=== PATIENT | male | born 1965 | race Caucasian/White ===

== ENCOUNTER → 2016-07-23 | Outpatient (CLI) | payer MEDICARE, MEDICAID ==
--- NOTE | 2016-07-23 16:36 | CR ---
EXAMINATION: Right wrist HISTORY: Pain COMPARISON: None TECHNIQUE: 3 views FINDINGS/IMPRESSION: There is a small ossific density projecting posterior to the wrist, possibly a triquetral avulsion fracture. Otherwise the osseous structures, joint spaces, and bone mineralizatio n appear normal. Moderate vascular calcifications noted.
== END ==
LOC: MW.CHORTHO 13:27
PROVIDERS: ATTEND Orthopaedic Surgery
DX: M25.531 Pain in right wrist (principal); G56.01 Carpal tunnel syndrome, right upper limb
CPT/HCPCS: 73110-26-RT; 73110-RT; 99203

== ENCOUNTER 2017-04-22 22:07 | Emergency (ER) | payer MEDICARE, OTHER ==
[2017-04-22 22:40] VITALS: BP 145/65
--- NOTE | 2017-04-22 23:27 | EDM.PDOC ---
<Sanjay De Santiago - Last Filed: 04/22/17 23:26> ED HPI GENERAL MEDICAL PROBLEM - General Chief Complaint: Upper Extremity Injury/Pain Stated Complaint: PAIN RIGHT SIDE PAIN Time Seen by Provider: 04/22/17 23:15 right rib area Pain Score (Numeric/FACES): 10 - Related Data Allergies Allergy/AdvReac Type Severity Reaction Status Date / Time azithromycin Allergy disoriented Verified 04/22/17 22:35 morphine Allergy Swelling Verified 04/22/17 22:35 Home Meds: Home Meds Metoprolol Succinate [Toprol XL] 50 mg PO DAILY 11/05/13 [History] Tacrolimus [Astagraf Xl] 5 mg PO DAILY 11/05/13 [History] atorvaSTATin [Lipitor] 10 mg PO DAILY 11/05/13 [History] predniSONE 5 mg PO DAILY 11/05/13 [History] Fluticasone Propionate [Flonase] 2 sprays TEZ BID PRN 08/02/14 [History] Insulin Aspart [NovoLOG] 1 injection SUBCUT TIDAC 08/02/14 [History] Insulin Glarg,Human.Rec.Analog [Lantus Solostar] 26 units SUBCUT ACBREAKFAST [History] LORazepam [Ativan] 0.5 mg PO Q6H PRN 08/02/14 [History] Multivitamin [Multiple Vitamins] 1 tab PO DAILY 08/02/14 [History] Mycophenolate Mofetil [Cellcept] 500 mg PO DAILY 08/02/14 [History] LORazepam 0.5 mg PO BID PRN #30 tablet 12/04/14 [Rx] Past Medical History HEENT History: Reports: Sinusitis Cardiovascular History: Reports: Hypertension Respiratory History: Reports: None Gastrointestinal History: Reports: None Other Gastrointestinal History: indigestion, abdominal pain Other Genitourinary History: kidney transplant 5 YEARS AGO Musculoskeletal History: Reports: None Neurological History: Reports: None Psychiatric History: Reports: Anxiety Endocrine/Metabolic History: Reports: Diabetes, Type I Hematologic History: Reports: None 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 Oncologic (Cancer) History: Reports: Other (See Below) Other Oncologic History: skin Dermatologic History: Reports: None - Infectious Disease History Infectious Disease History: Reports: Chicken Pox - Past Surgical History HEENT Surgical History: Reports: Eye Surgery Cardiovascular Surgical History: Reports: Coronary Artery Stent GI Surgical History: Reports: Appendectomy Other Male Surgeries/Procedures: kidney transplant Social & Family History - Family History Family Medical History: Noncontributory Endocrine/Metabolic: Reports: Diabetes, Type I - Tobacco Use Smoking Status *Q: Never Smoker Years of Tobacco use: 9 Packs/Tins Daily: 0.2 Second Hand Smoke Exposure: Yes - Caffeine Use Caffeine Use: Reports: Soda - Recreational Drug Use Recreational Drug Use: No Course - Vital Signs Last Recorded V/S: Last Vital Signs Temp 36.9 C 04/22/17 22:35 Pulse 88 04/22/17 22:35 Resp 18 04/22/17 22:35 BP 145/65 H 04/22/17 22:35 Pulse Ox 97 04/22/17 22:35 - Orders/Labs/Meds Orders: Active Orders 24 hr Category Date Time Status Chest 2V [CR] Stat Exams 04/22/17 23:02 Taken Ribs 2V wo Chest Rt [CR] Stat Exams 04/22/17 23:29 Taken Meds: Medications Discontinued Medications Generic Name Dose Route Start Last Admin Trade Name Jd PRN Reason Stop Dose Admin Hydrocodone Bitart/Acetaminophen 1 tab 04/22/17 23:48 Home 325-7.5 Mg PO 04/22/17 23:49 NOW STA Departure - Departure Disposition: Home, Self-Care 01 Clinical Impression: Fracture, rib - Discharge Information Referrals: PCP,None [Primary Care Provider] - Forms: ED Department Discharge Additional Instructions: The following information is given to patients seen in the emergency department who are being discharged to home. This information is to outline your options for follow-up care. We provide all patients seen in our emergency department with a follow-up referral. The need for follow-up, as well as the timing and circumstances, are variable depending upon the specifics of your emergency department visit. If you don't have a primary care physician on staff, we will provide you with a referral. We always advise you to contact your personal physician following an emergency department visit to inform them of the circumstance of the visit and for follow-up with them and/or the need for any referrals to a consulting specialist. The emergency department will also refer you to a specialist when appropriate. This referral assures that you have the opportunity for follow-up care with a specialist. All of these measure are taken in an effort to provide you with optimal care, which includes your follow-up. Under all circumstances we always encourage you to contact your private physician who remains a resource for coordinating your care. When calling for follow-up care, please make the office aware that this follow-up is from your recent emergency room visit. If for any reason you are refused follow-up, please contact the [facility] Emergency Department at and asked to speak to the emergency department charge nurse. As discussed you have an isolated rib fracture it is important that you continue to cough and deep breathe so as to prevent any sort of pneumonia it is no longer appropriate to splint and or brace those ribs continuously but rather hold onto them and brace them while coughing and deep breathing to continue mucus secretion movement You're being given a brief run of pain medicine to help you during the acute phase of your rib healing Please follow-up with your primary care provider in 2-3 days as discussed Please return to ED as needed as discussed - My Orders Last 24 Hours: My Active Orders 04/22/17 23:02 Chest 2V [CR] Stat - Assessment/Plan Last 24 Hours: My Active Orders 04/22/17 23:02 Chest 2V [CR] Stat <Zack London - Last Filed: 04/23/17 00:15> ED HPI GENERAL MEDICAL PROBLEM - General Source of Information: Reports: Patient History Limitations: Reports: No Limitations - History of Present Illness INITIAL COMMENTS - FREE TEXT/NARRATIVE: History of present illness: [] Review of systems: As per history of present illness and below otherwise all systems reviewed and negative. Past medical history: As per history of present illness and as reviewed below otherwise noncontributory. Surgical history: As per history of present illness and as reviewed below otherwise noncontributory. Social history: No reported history of drug or alcohol abuse. Family history: As per history of present illness and as reviewed below otherwise noncontributory. Physical exam: HEENT: Atraumatic, normocephalic, pupils reactive, negative for conjunctival pallor or scleral icterus, mucous membranes moist, throat clear, neck supple, nontender, trachea midline. Lungs: Clear to auscultation, breath sounds equal bilaterally, chest nontender only at lateral rib right side. Heart: S1S2, regular, negative for clicks, rubs, or JVD. Abdomen: Soft, nondistended, nontender. Negative for masses or hepatosplenomegaly. Negative for costovertebral tenderness. Pelvis: Stable nontender. Genitourinary: Deferred. Rectal: Deferred. Extremities: Atraumatic, negative for cords or calf pain. Neurovascular unremarkable. Neuro: Awake, alert, oriented. Cranial nerves II through XII unremarkable. Cerebellum unremarkable. Motor and sensory unremarkable throughout. Exam nonfocal. Thoracic tenderness to right side most notably in the posterior aspect Radiographic studies indicate an isolated individual rib fracture Diagnostics: [X-ray of ribs] Therapeutics: [Home] Impression: [Isolated individual fractured rib] Plan: [Pain medicine at home discussion about coughing and deep breathing of splinting ] Definitive disposition and diagnosis as appropriate pending reevaluation and review of above. Review of Systems - Review of Systems Review Of Systems: See Below (See history of present illness) ED EXAM, GENERAL - Physical Exam Exam: See Below (See history of present illness) Departure - Departure Time of Disposition: 00:13 Condition: Good
[2017-04-22] MEDS ORDERED: Acetaminophen/HYDROcodone 325-7.5 MG Tab PO STA (23:48)
--- NOTE | 2017-04-23 10:40 | CR ---
EXAM DATE: 04/22/17 PATIENT'S AGE: 51 Patient: ELIAN BELLA Facility: [place], [place] Site . Site : 1965 Study: XRay Chest [id number]/2/2018 11:18:54 PM Ordering Physician: Doctor Woodward Final Report: INDICATIONS: Right-sided rib pain after falling out of tub. TECHNIQUE: Chest 2 view. COMPARISON: Chest radiograph 09/03/2015. FINDINGS: No pneumothorax, pleural effusion or airspace consolidation. Cardiac and mediastinal contours are within normal limits. Upper abdomen as imaged is unremarkable. There is a minimally displaced fracture of the right lateral 7th rib. No additional acute osseous abnormality demonstrated. IMPRESSION: Fracture of the right lateral 7th rib. No evidence of acute cardiopulmonary disease. Dictated by Ruslan Singer MD @ 04/22/2017 11:30:12 PM Dictated by: Ruslan Singer MD @ 04/22/2017 23:30:31 (Electronic Signature) Report Signed by Proxy. TRENT
--- NOTE | 2017-04-23 10:47 | CR ---
EXAM DATE: 04/22/17 PATIENT'S AGE: 51 Patient: ELIAN BELLA Facility: [place], [place] Site . Site : 1965 Study: XRay Chest Right RIBS [id number]/2/[id number] 11:45:30 PM Ordering Physician: Heather Grace Final Report: INDICATION : Fell earlier today, hit right ribs on edge of bathtub. Pain. TECHNIQUE : 4 images obtained of the right ribs. FINDINGS : Minimally displaced anterolateral right 10th rib fracture. No additional right rib fracture deformity. Right hemithorax clear. IMPRESSION : Acute fracture, anterolateral right 10th rib. Dictated by Jonel Warren MD @ 04/22/2017 11:58:46 PM Dictated by: Jonel Warren MD @ 04/22/2017 23:58:49 (Electronic Signature) Report Signed by Proxy. [facility] HOSPITAL[facility]ian
== END 2017-04-23 00:22 | disposition home or self-care (01) ==
LOC: MW.ED 22:07
DX: S22.31XA Fracture of one rib, right side, initial encounter for closed fracture (principal); I10 Essential (primary) hypertension; E10.9 Type 1 diabetes mellitus without complications; Z88.1 Allergy status to other antibiotic agents; Z88.5 Allergy status to narcotic agent; Z79.899 Other long term (current) drug therapy; W18.2XXA Fall in (into) shower or empty bathtub, initial encounter
CPT/HCPCS: 71046; 71100; 99283; A9270; 99282

== ENCOUNTER 2018-06-12 17:19 | Emergency (ER) | payer MEDICARE, OTHER ==
--- NOTE | 2018-06-12 17:57 | EDM.PDOC ---
ED HPI GENERAL MEDICAL PROBLEM - General Chief Complaint: Chest Pain Stated Complaint: CHEST PAIN Time Seen by Provider: 06/12/18 17:51 - History of Present Illness INITIAL COMMENTS - FREE TEXT/NARRATIVE: HISTORY AND PHYSICAL: History of present illness: Patient is a 52-year-old white male with history of renal transplant and coronary artery disease with stent placement 1 presents with concern of generalized malaise he states Friday he had an episode in which he stopped chewing tobacco cold turkey and felt for he states he still feels bad and is somewhat nonspecific way he states he got polymyalgia general malaise been no fever chills no shortness of breath or other concern. Review of systems: As per history of present illness and below otherwise all systems reviewed and negative. Past medical history: As per history of present illness and as reviewed below otherwise noncontributory. Surgical history: As per history of present illness and as reviewed below otherwise noncontributory. Social history: No reported history of drug or alcohol abuse. Family history: As per history of present illness and as reviewed below otherwise noncontributory. Physical exam: HEENT: Atraumatic, normocephalic, pupils reactive, mild conjunctival pallor no scleral icterus, mucous membranes moist, throat clear, neck supple, nontender, trachea midline. Lungs: Clear to auscultation, breath sounds equal bilaterally, chest nontender. Heart: S1S2, regular, negative for clicks, rubs, or JVD. Abdomen: Soft, nondistended, nontender. Negative for masses or hepatosplenomegaly. Negative for costovertebral tenderness. Pelvis: Stable nontender. Genitourinary: Deferred. Rectal: Deferred. Extremities: Atraumatic, negative for cords or calf pain. Neurovascular unremarkable. Neuro: Awake, alert, oriented. Cranial nerves II through XII unremarkable. Cerebellum unremarkable. Motor and sensory unremarkable throughout. Exam nonfocal. Diagnostics: CBC CMP troponin PT/INR chest x-ray EKG influenza screen Therapeutics: None Impression: #1 general malaise #2 history of renal transplant #3 history of coronary artery disease with stent placement 1 #4 medical screening Definitive disposition and diagnosis as appropriate pending reevaluation and review of above. Chest Pain Score (Numeric/FACES): 2 - Related Data Allergies Allergy/AdvReac Type Severity Reaction Status Date / Time azithromycin Allergy disoriented Verified 06/12/18 17:38 morphine Allergy Swelling Verified 06/12/18 17:38 Home Meds: Home Meds Metoprolol Succinate [Toprol XL] 50 mg PO DAILY 11/05/13 [History] Tacrolimus [Astagraf Xl] 5 mg PO DAILY 11/05/13 [History] atorvaSTATin [Lipitor] 10 mg PO DAILY 11/05/13 [History] predniSONE 5 mg PO DAILY 11/05/13 [History] Fluticasone Propionate [Flonase] 2 sprays TEZ BID PRN 08/02/14 [History] Insulin Aspart [NovoLOG] 1 injection SUBCUT TIDAC 08/02/14 [History] Insulin Glarg,Human.Rec.Analog [Lantus Solostar] 26 units SUBCUT ACBREAKFAST [History] LORazepam [Ativan] 0.5 mg PO Q6H PRN 08/02/14 [History] Multivitamin [Multiple Vitamins] 1 tab PO DAILY 08/02/14 [History] Mycophenolate Mofetil [Cellcept] 500 mg PO DAILY 08/02/14 [History] LORazepam 0.5 mg PO BID PRN #30 tablet 12/04/14 [Rx] Past Medical History HEENT History: Reports: Sinusitis Cardiovascular History: Reports: Hypertension Respiratory History: Reports: None Gastrointestinal History: Reports: None Other Gastrointestinal History: indigestion, abdominal pain Other Genitourinary History: kidney transplant 5 YEARS AGO Musculoskeletal History: Reports: None Neurological History: Reports: None Psychiatric History: Reports: Anxiety Endocrine/Metabolic History: Reports: Diabetes, Type I Hematologic History: Reports: None 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 Oncologic (Cancer) History: Reports: Other (See Below) Other Oncologic History: skin Dermatologic History: Reports: None - Infectious Disease History Infectious Disease History: Reports: None - Past Surgical History HEENT Surgical History: Reports: Eye Surgery Cardiovascular Surgical History: Reports: Coronary Artery Stent GI Surgical History: Reports: Appendectomy Other Male Surgeries/Procedures: kidney transplant Social & Family History - Family History Family Medical History: Noncontributory Endocrine/Metabolic: Reports: Diabetes, Type I - Caffeine Use Caffeine Use: Reports: Soda ED ROS GENERAL - Review of Systems Review Of Systems: ROS reveals no pertinent complaints other than HPI. ED EXAM, GENERAL - Physical Exam Exam: See Below (See dictation) Course - Vital Signs Last Recorded V/S: Last Vital Signs Temp 36.1 C 06/12/18 17:39 Pulse 82 06/12/18 17:39 Resp 18 06/12/18 17:39 BP 155/64 H 06/12/18 17:39 Pulse Ox 98 06/12/18 17:39 - Orders/Labs/Meds Orders: Active Orders 24 hr Category Date Time Status EKG Documentation Completion [RC] STAT Care 06/12/18 17:22 Active Sodium Chloride 0.9% [Normal Saline] 1,000 ml Med 06/12/18 18:54 Active IV .BOLUS Medication Orders Sodium Chloride (Normal Saline) 1,000 mls @ 125 mls/hr IV .BOLUS ONE Stop: 06/13/18 02:53 Labs: Laboratory Tests 06/12/18 06/12/18 Range/Units 18:00 18:00 WBC 5.46 (4.0-11.0) K/uL RBC 4.64 (4.50-5.90) M/uL Hgb 14.3 (13.0-17.0) g/dL Hct 43.2 (38.0-50.0) % MCV 93.1 (80.0-98.0) fL MCH 30.8 (27.0-32.0) pg MCHC 33.1 (31.0-37.0) g/dL RDW Std Deviation 45.7 (28.0-62.0) fl RDW Coeff of Sukhdeep 14 (11.0-15.0) % Plt Count 118 L (150-400) K/uL MPV 10.20 (7.40-12.00) fL Neut % (Auto) 60.8 (48.0-80.0) % Lymph % (Auto) 24.5 (16.0-40.0) % [place] % (Auto) 13.2 (0.0-15.0) % Eos % (Auto) 1.3 (0.0-7.0) % Baso % (Auto) 0.2 (0.0-1.5) % Neut # (Auto) 3.3 (1.4-5.7) K/uL Lymph # (Auto) 1.3 (0.6-2.4) K/uL [place] # (Auto) 0.7 (0.0-0.8) K/uL Eos # (Auto) 0.1 (0.0-0.7) K/uL Baso # (Auto) 0.0 (0.0-0.1) K/uL Nucleated RBC % 0.0 /100WBC Nucleated RBCs # 0 K/uL Sodium 135 L (136-148) mmol/L Potassium 5.0 (3.5-5.1) mmol/L Chloride 99 (98-107) mmol/L Carbon Dioxide 28.5 (21.0-32.0) mmol/L BUN 20 H (7.0-18.0) mg/dL Creatinine 1.2 (0.8-1.3) mg/dL Est Cr Clr Drug Dosing 80.83 mL/min Estimated GFR (MDRD) > 60.0 ml/min Glucose 280 H (74-106) mg/dL Calcium 8.9 (8.5-10.1) mg/dL Total Bilirubin 0.4 (0.2-1.0) mg/dL AST 29 (15-37) IU/L ALT 20 (14-63) IU/L Alkaline Phosphatase 70 (46-116) U/L Troponin I 1.474 H* (0.000-0.056) ng/mL Total Protein 7.1 (6.4-8.2) g/dL Albumin 3.2 L (3.4-5.0) g/dL Globulin 3.9 (2.6-4.0) g/dL Albumin/Globulin Ratio 0.8 L (0.9-1.6) Meds: Medications Generic Name Dose Route Start Last Admin Trade Name Freq PRN Reason Stop Dose Admin Sodium Chloride 1,000 mls @ 125 mls/hr 06/12/18 18:54 Normal Saline IV 06/13/18 02:53 .BOLUS ONE Discontinued Medications Generic Name Dose Route Start Last Admin Trade Name Freq PRN Reason Stop Dose Admin Aspirin 325 mg 06/12/18 18:53 Aspirin PO 06/12/18 18:54 ONETIME ONE Departure - Departure Time of Disposition: 19:03 Disposition: DC/Tfer to Acute Hospital 02 Condition: Good Clinical Impression: Chest pain, History of renal transplant, Elevated troponin - Discharge Information Referrals: PCP,None [Primary Care Provider] - Forms: ED Department Discharge - My Orders Last 24 Hours: My Active Orders 06/12/18 18:54 Sodium Chloride 0.9% [Normal Saline] 1,000 ml IV .BOLUS - Assessment/Plan Last 24 Hours: My Active Orders 06/12/18 18:54 Sodium Chloride 0.9% [Normal Saline] 1,000 ml IV .BOLUS
--- NOTE | 2018-06-12 18:23 | CR ---
Indication: Shortness of breath. Chest pain. Technique: A single AP portable view of the chest was obtained. Comparison: None Findings: The heart is normal in size. The lungs are clear. No infiltrate, pleural effusion, or pneumothorax is identified. Impression: No acute cardiopulmonary process. Dictated by Ana Mtz MD @ Jun 12 2018 6:09PM Signed by Dr. Ana Mtz @ Jun 12 2018 6:22PM
[2018-06-12 18:43] LABS: CHLORIDE,CL 99 mmol/L (98-107); SODIUM,NA 135 mmol/L (136-148)
[2018-06-12] MEDS ORDERED: Aspirin 325 MG Tab PO ONE (18:53)
[2018-06-12] MEDS ORDERED: Sodium Chloride 0.9% 1,000 ML IV ONE (18:54)
[2018-06-12 20:18] VITALS: BP 150/49
== END 2018-06-12 21:00 ==
LOC: MW.ED 17:19
DX: R07.9 Chest pain, unspecified (principal); R53.81 Other malaise; R79.89 Other specified abnormal findings of blood chemistry; Z94.0 Kidney transplant status; I10 Essential (primary) hypertension; I25.10 Atherosclerotic heart disease of native coronary artery without angina pectoris; E10.9 Type 1 diabetes mellitus without complications; Z79.899 Other long term (current) drug therapy; Z88.5 Allergy status to narcotic agent; Z88.1 Allergy status to other antibiotic agents
CPT/HCPCS: 36415; 71045; 80053; 84484; 85025; 87804; 93005; 96360; 96361; 99285; A9270; J7040; 99283

== ENCOUNTER 2018-07-11 12:43 | Emergency (ER) | payer OTHER ==
--- NOTE | 2018-07-11 13:14 | EDM.PDOC ---
ED HPI GENERAL MEDICAL PROBLEM - General Chief Complaint: General Stated Complaint: SINUS INFESTION GOING INTO EYES Time Seen by Provider: 07/11/18 13:12 Source of Information: Reports: Patient History Limitations: Reports: No Limitations - History of Present Illness INITIAL COMMENTS - FREE TEXT/NARRATIVE: HISTORY AND PHYSICAL: History of present illness: Patient is a 52-year-old male here with complaint of possible sinus infection. He reports it started about 1 month ago as a cold and progressed to left sinus pressure and pain. He states he's had history of chronic left maxillary sinusitis but has not had trouble with it in a couple of years. He feels it is affecting his eye as he is having pain behind the eye, eye redness and purulent drainage from the eye which he has had in the past and treated with eye drops. He denies fevers, chills, cough, chest pain, SOB, nausea, vomiting, diarrhea, abdominal pain. Review of systems: As per history of present illness and below otherwise all systems reviewed and negative. Past medical history: As per history of present illness and as reviewed below otherwise noncontributory. Surgical history: As per history of present illness and as reviewed below otherwise noncontributory. Social history: No reported history of drug or alcohol abuse. Family history: As per history of present illness and as reviewed below otherwise noncontributory. Physical exam: General: Patient sitting comfortably in no acute distress and nontoxic appearing HEENT: Left maxillary and frontal sinus tenderness to palpation. Atraumatic, normocephalic, pupils reactive, negative for conjunctival pallor or scleral icterus, mucous membranes moist, throat clear, neck supple, nontender, trachea midline. No meningeal signs. Lungs: Clear to auscultation, breath sounds equal bilaterally, chest nontender. Heart: S1S2, regular, negative for clicks, rubs, or overt murmur. Abdomen: Soft, nondistended, nontender. Negative for masses or hepatosplenomegaly. Negative for costovertebral tenderness. No rigidity, rebound , guarding. Pelvis: Stable nontender. Genitourinary: Deferred. Rectal: Deferred. Extremities: Atraumatic, negative for cords or calf pain. Neurovascular unremarkable. Neuro: Awake, alert, oriented. Cranial nerves II through XII unremarkable. Cerebellum unremarkable. Motor and sensory unremarkable throughout. Exam nonfocal. Notes: Diagnostics: None Therapeutics: None Prescriptions: Augmentin Polytrim ophthalmic Impression: Sinusitis Plan: 1. Take antibiotic as instructed. Tylenol and Motrin as needed. 2. Follow-up with primary care provider 3. Return to ED as needed as discussed Definitive disposition and diagnosis as appropriate pending reevaluation and review of above. - Related Data Allergies Allergy/AdvReac Type Severity Reaction Status Date / Time azithromycin Allergy disoriented Verified 07/11/18 13:14 morphine Allergy Swelling Verified 07/11/18 13:14 Home Meds: Home Meds Metoprolol Succinate [Toprol XL] 50 mg PO DAILY 11/05/13 [History] Tacrolimus [Astagraf Xl] 5 mg PO DAILY 11/05/13 [History] atorvaSTATin [Lipitor] 10 mg PO DAILY 11/05/13 [History] predniSONE 5 mg PO DAILY 11/05/13 [History] Fluticasone Propionate [Flonase] 2 sprays TEZ BID PRN 08/02/14 [History] Insulin Aspart [NovoLOG] 1 injection SUBCUT TIDAC 08/02/14 [History] Insulin Glarg,Human.Rec.Analog [Lantus Solostar] 26 units SUBCUT ACBREAKFAST [History] LORazepam [Ativan] 0.5 mg PO Q6H PRN 08/02/14 [History] Multivitamin [Multiple Vitamins] 1 tab PO DAILY 08/02/14 [History] Mycophenolate Mofetil [Cellcept] 500 mg PO DAILY 08/02/14 [History] LORazepam 0.5 mg PO BID PRN #30 tablet 12/04/14 [Rx] Amoxicillin/Potassium Clav [Augmentin 875-125 Tablet] 1 each PO BID 10 Days #20 tablet 07/11/18 [Rx] Polymyxin B/Trimethoprim [PolyTrim Ophth Soln] 1 drop OP Q6H #1 bottle 07/11/18 [Rx] Past Medical History HEENT History: Reports: Sinusitis Cardiovascular History: Reports: Hypertension Respiratory History: Reports: None Gastrointestinal History: Reports: None Other Gastrointestinal History: indigestion, abdominal pain Other Genitourinary History: kidney transplant 5 YEARS AGO Musculoskeletal History: Reports: None Neurological History: Reports: None Psychiatric History: Reports: Anxiety Endocrine/Metabolic History: Reports: Diabetes, Type I Hematologic History: Reports: None 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 Oncologic (Cancer) History: Reports: Other (See Below) Other Oncologic History: skin Dermatologic History: Reports: None - Infectious Disease History Infectious Disease History: Reports: None - Past Surgical History HEENT Surgical History: Reports: Eye Surgery Cardiovascular Surgical History: Reports: Coronary Artery Stent GI Surgical History: Reports: Appendectomy Other Male Surgeries/Procedures: kidney transplant Social & Family History - Family History Family Medical History: Noncontributory Endocrine/Metabolic: Reports: Diabetes, Type I - Caffeine Use Caffeine Use: Reports: Soda ED ROS GENERAL - Review of Systems Review Of Systems: ROS reveals no pertinent complaints other than HPI. ED EXAM, GENERAL - Physical Exam Exam: See Below (see dictation) Departure - Departure Time of Disposition: 13:12 Disposition: Home, Self-Care 01 Condition: Good Clinical Impression: Sinusitis - Discharge Information Prescriptions: Amoxicillin/Potassium Clav [Augmentin 875-125 Tablet] 1 each PO BID 10 Days #20 tablet Polymyxin B/Trimethoprim [PolyTrim Ophth Soln] 1 drop OP Q6H #1 bottle Referrals: Marvin Valle MD [Primary Care Provider] - Forms: ED Department Discharge Additional Instructions: The following information is given to patients seen in the emergency department who are being discharged to home. This information is to outline your options for follow-up care. We provide all patients seen in our emergency department with a follow-up referral. The need for follow-up, as well as the timing and circumstances, are variable depending upon the specifics of your emergency department visit. If you don't have a primary care physician on staff, we will provide you with a referral. We always advise you to contact your personal physician following an emergency department visit to inform them of the circumstance of the visit and for follow-up with them and/or the need for any referrals to a consulting specialist. The emergency department will also refer you to a specialist when appropriate. This referral assures that you have the opportunity for follow-up care with a specialist. All of these measure are taken in an effort to provide you with optimal care, which includes your follow-up. Under all circumstances we always encourage you to contact your private physician who remains a resource for coordinating your care. When calling for follow-up care, please make the office aware that this follow-up is from your recent emergency room visit. If for any reason you are refused follow-up, please contact the [facility] Emergency Department at and asked to speak to the emergency department charge nurse. [facility] [address] [place] [id number] [id number] 1. Take antibiotic as instructed. Tylenol and Motrin as needed. 2. Follow-up with primary care provider 3. Return to ED as needed as discussed
== END 2018-07-11 13:45 | disposition home or self-care (01) ==
LOC: MW.ED 12:43
DX: J32.9 Chronic sinusitis, unspecified (principal); E10.9 Type 1 diabetes mellitus without complications; F41.9 Anxiety disorder, unspecified; I10 Essential (primary) hypertension; Z79.899 Other long term (current) drug therapy; Z88.1 Allergy status to other antibiotic agents; Z88.5 Allergy status to narcotic agent
CPT/HCPCS: 99282; 99283

== ENCOUNTER 2018-09-03 09:10 | Emergency (ER) | payer SELFPAY ==
[2018-09-03] MEDS ORDERED: Sodium Chloride 0.9% 2.5 ML Syringe FLUSH PRN (09:19)
[2018-09-03] MEDS ORDERED: Sodium Chloride 0.9% 10 ML Syringe FLUSH PRN (09:19)
--- NOTE | 2018-09-03 09:48 | EDM.PDOC ---
ED HPI GENERAL MEDICAL PROBLEM - General Chief Complaint: Diabetic Complaint Stated Complaint: TOOK TO MUCN INSULIN Time Seen by Provider: 09/03/18 09:35 - History of Present Illness INITIAL COMMENTS - FREE TEXT/NARRATIVE: HISTORY AND PHYSICAL: History of present illness: Patient 52-year-old white male who inadvertently took 34 units of Humalog approximately 1 hour prior to arrival he is here for monitoring of blood sugar. This was inadvertent patient has no complaints on arrival Review of systems: As per history of present illness and below otherwise all systems reviewed and negative. Past medical history: As per history of present illness and as reviewed below otherwise noncontributory. Surgical history: As per history of present illness and as reviewed below otherwise noncontributory. Social history: No reported history of drug or alcohol abuse. Family history: As per history of present illness and as reviewed below otherwise noncontributory. Physical exam: HEENT: Atraumatic, normocephalic, pupils reactive, negative for conjunctival pallor or scleral icterus, mucous membranes moist, throat clear, neck supple, nontender, trachea midline. Lungs: Clear to auscultation, breath sounds equal bilaterally, chest nontender. Heart: S1S2, regular, negative for clicks, rubs, or JVD. Abdomen: Soft, nondistended, nontender. Negative for masses or hepatosplenomegaly. Negative for costovertebral tenderness. Pelvis: Stable nontender. Genitourinary: Deferred. Rectal: Deferred. Extremities: Atraumatic, negative for cords or calf pain. Neurovascular unremarkable. Neuro: Awake, alert, oriented. Cranial nerves II through XII unremarkable. Cerebellum unremarkable. Motor and sensory unremarkable throughout. Exam nonfocal. Diagnostics: CBC CMP Therapeutics: Saline Impression: #1 inadvertent insulin overdose #2 medical screening exam #3 medical observation Definitive disposition and diagnosis as appropriate pending reevaluation and review of above. - Related Data Allergies Allergy/AdvReac Type Severity Reaction Status Date / Time azithromycin Allergy disoriented Verified 09/03/18 09:19 morphine Allergy Swelling Verified 09/03/18 09:19 Home Meds: Home Meds Metoprolol Succinate [Toprol XL] 50 mg PO DAILY 11/05/13 [History] Tacrolimus [Astagraf Xl] 5 mg PO DAILY 11/05/13 [History] atorvaSTATin [Lipitor] 10 mg PO DAILY 11/05/13 [History] predniSONE 5 mg PO DAILY 11/05/13 [History] Fluticasone Propionate [Flonase] 2 sprays TEZ BID PRN 08/02/14 [History] Insulin Aspart [NovoLOG] 1 injection SUBCUT TIDAC 08/02/14 [History] Insulin Glarg,Human.Rec.Analog [Lantus Solostar] 26 units SUBCUT ACBREAKFAST [History] LORazepam [Ativan] 0.5 mg PO Q6H PRN 08/02/14 [History] Multivitamin [Multiple Vitamins] 1 tab PO DAILY 08/02/14 [History] Mycophenolate Mofetil [Cellcept] 500 mg PO DAILY 08/02/14 [History] LORazepam 0.5 mg PO BID PRN #30 tablet 12/04/14 [Rx] Amoxicillin/Potassium Clav [Augmentin 875-125 Tablet] 1 each PO BID 10 Days #20 tablet 07/11/18 [Rx] Polymyxin B/Trimethoprim [PolyTrim Ophth Soln] 1 drop OP Q6H #1 bottle 07/11/18 [Rx] Past Medical History HEENT History: Reports: Sinusitis Cardiovascular History: Reports: Hypertension Respiratory History: Reports: None Gastrointestinal History: Reports: None Other Gastrointestinal History: indigestion, abdominal pain Other Genitourinary History: kidney transplant 5 YEARS AGO Musculoskeletal History: Reports: None Neurological History: Reports: None Psychiatric History: Reports: Anxiety Endocrine/Metabolic History: Reports: Diabetes, Type I Hematologic History: Reports: None 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 Other Immunologic History: Kidney Transplant Oncologic (Cancer) History: Reports: Other (See Below) Other Oncologic History: skin Dermatologic History: Reports: None - Infectious Disease History Infectious Disease History: Reports: None - Past Surgical History HEENT Surgical History: Reports: Eye Surgery Cardiovascular Surgical History: Reports: Coronary Artery Stent GI Surgical History: Reports: Appendectomy Other Male Surgeries/Procedures: kidney transplant Social & Family History - Family History Family Medical History: Noncontributory Endocrine/Metabolic: Reports: Diabetes, Type I - Tobacco Use Years of Tobacco use: 10 Packs/Tins Daily: 0.5 - Caffeine Use Caffeine Use: Reports: Soda - Recreational Drug Use Recreational Drug Use: No ED ROS GENERAL - Review of Systems Review Of Systems: ROS reveals no pertinent complaints other than HPI. ED EXAM GENERAL NO PERIP PULSE - Physical Exam Exam: See Below (See dictation) Course - Vital Signs Last Recorded V/S: Last Vital Signs Temp 36.3 C 09/03/18 09:20 Pulse 91 09/03/18 09:20 Resp 17 09/03/18 09:20 BP 157/48 H 09/03/18 09:20 Pulse Ox 98 09/03/18 09:20 - Orders/Labs/Meds Orders: Active Orders 24 hr Category Date Time Status Blood Glucose Check, Bedside [RC] ONETIME Care 09/03/18 09:18 Active EKG 12 Lead [EKG Documentation Completion] [RC] STAT Care 09/03/18 09:38 Active Sodium Chloride 0.9% [Saline Flush] Med 09/03/18 09:19 Active 10 ml FLUSH ASDIRECTED PRN Sodium Chloride 0.9% [Saline Flush] Med 09/03/18 09:19 Active 2.5 ml FLUSH ASDIRECTED PRN Saline Lock Insert [OM.PC] Stat Oth 09/03/18 09:19 Ordered Medication Orders Sodium Chloride (Saline Flush) 10 ml FLUSH ASDIRECTED PRN PRN Reason: Keep Vein Open Sodium Chloride (Saline Flush) 2.5 ml FLUSH ASDIRECTED PRN PRN Reason: Keep Vein Open Labs: Laboratory Tests 09/03/18 09/03/18 09/03/18 Range/Units 09:35 09:35 10:44 WBC 6.44 (4.0-11.0) K/uL RBC 4.26 L (4.50-5.90) M/uL Hgb 12.9 L (13.0-17.0) g/dL Hct 39.9 (38.0-50.0) % MCV 93.7 (80.0-98.0) fL MCH 30.3 (27.0-32.0) pg MCHC 32.3 (31.0-37.0) g/dL RDW Std Deviation 45.3 (28.0-62.0) fl RDW Coeff of Sukhdeep 13 (11.0-15.0) % Plt Count 180 (150-400) K/uL MPV 9.90 (7.40-12.00) fL Neut % (Auto) 63.8 (48.0-80.0) % Lymph % (Auto) 24.2 (16.0-40.0) % [place] % (Auto) 9.9 (0.0-15.0) % Eos % (Auto) 1.6 (0.0-7.0) % Baso % (Auto) 0.5 (0.0-1.5) % Neut # (Auto) 4.1 (1.4-5.7) K/uL Lymph # (Auto) 1.6 (0.6-2.4) K/uL [place] # (Auto) 0.6 (0.0-0.8) K/uL Eos # (Auto) 0.1 (0.0-0.7) K/uL Baso # (Auto) 0.0 (0.0-0.1) K/uL Nucleated RBC % 0.0 /100WBC Nucleated RBCs # 0 K/uL Sodium 136 (136-148) mmol/L Potassium 4.3 (3.5-5.1) mmol/L Chloride 101 (98-107) mmol/L Carbon Dioxide 27.2 (21.0-32.0) mmol/L BUN 23 H (7.0-18.0) mg/dL Creatinine 1.1 (0.8-1.3) mg/dL Est Cr Clr Drug Dosing 82.95 mL/min Estimated GFR (MDRD) > 60.0 ml/min Glucose 293 H (74-106) mg/dL POC Glucose 162 H (60-110) mg/dL Calcium 8.9 (8.5-10.1) mg/dL Total Bilirubin 0.4 (0.2-1.0) mg/dL AST 23 (15-37) IU/L ALT 28 (14-63) IU/L Alkaline Phosphatase 95 (46-116) U/L Total Protein 7.2 (6.4-8.2) g/dL Albumin 3.2 L (3.4-5.0) g/dL Globulin 4.0 (2.6-4.0) g/dL Albumin/Globulin Ratio 0.8 L (0.9-1.6) /16/ Range/Units 11:28 WBC (4.0-11.0) K/uL RBC (4.50-5.90) M/uL Hgb (13.0-17.0) g/dL Hct (38.0-50.0) % MCV (80.0-98.0) fL MCH (27.0-32.0) pg MCHC (31.0-37.0) g/dL RDW Std Deviation (28.0-62.0) fl RDW Coeff of Sukhdeep (11.0-15.0) % Plt Count (150-400) K/uL MPV (7.40-12.00) fL Neut % (Auto) (48.0-80.0) % Lymph % (Auto) (16.0-40.0) % [place] % (Auto) (0.0-15.0) % Eos % (Auto) (0.0-7.0) % Baso % (Auto) (0.0-1.5) % Neut # (Auto) (1.4-5.7) K/uL Lymph # (Auto) (0.6-2.4) K/uL [place] # (Auto) (0.0-0.8) K/uL Eos # (Auto) (0.0-0.7) K/uL Baso # (Auto) (0.0-0.1) K/uL Nucleated RBC % /100WBC Nucleated RBCs # K/uL Sodium (136-148) mmol/L Potassium (3.5-5.1) mmol/L Chloride (98-107) mmol/L Carbon Dioxide (21.0-32.0) mmol/L BUN (7.0-18.0) mg/dL Creatinine (0.8-1.3) mg/dL Est Cr Clr Drug Dosing mL/min Estimated GFR (MDRD) ml/min Glucose (74-106) mg/dL POC Glucose 94 (60-110) mg/dL Calcium (8.5-10.1) mg/dL Total Bilirubin (0.2-1.0) mg/dL AST (15-37) IU/L ALT (14-63) IU/L Alkaline Phosphatase (46-116) U/L Total Protein (6.4-8.2) g/dL Albumin (3.4-5.0) g/dL Globulin (2.6-4.0) g/dL Albumin/Globulin Ratio (0.9-1.6) Meds: Medications Generic Name Dose Route Start Last Admin Trade Name Jd PRN Reason Stop Dose Admin Sodium Chloride 10 ml 09/03/18 09:19 Saline Flush FLUSH ASDIRECTED PRN Keep Vein Open Sodium Chloride 2.5 ml 09/03/18 09:19 Saline Flush FLUSH ASDIRECTED PRN Keep Vein Open Departure - Departure Time of Disposition: 11:45 Disposition: Home, Self-Care 01 Condition: Good Clinical Impression: Encounter for medical screening examination, Observation for suspected medical conditions, History of diabetes mellitus - Discharge Information Referrals: PCP,Unknown [Primary Care Provider] - Forms: ED Department Discharge Additional Instructions: The following information is given to patients seen in the emergency department who are being discharged to home. This information is to outline your options for follow-up care. We provide all patients seen in our emergency department with a follow-up referral. The need for follow-up, as well as the timing and circumstances, are variable depending upon the specifics of your emergency department visit. If you don't have a primary care physician on staff, we will provide you with a referral. We always advise you to contact your personal physician following an emergency department visit to inform them of the circumstance of the visit and for follow-up with them and/or the need for any referrals to a consulting specialist. The emergency department will also refer you to a specialist when appropriate. This referral assures that you have the opportunity for followup care with a specialist. All of these measure are taken in an effort to provide you with optimal care, which includes your followup. Under all circumstances we always encourage you to contact your private physician who remains a resource for coordinating your care. When calling for followup care, please make the office aware that this follow-up is from your recent emergency room visit. If for any reason you are refused follow-up, please contact the [facility] emergency department at and asked to speak to the emergency department charge nurse. Eat regularly as discussed Accu-Chek 4 times a day as discussed return as needed as discussed - My Orders Last 24 Hours: My Active Orders 09/03/18 09:18 Blood Glucose Check, Bedside [RC] ONETIME 09/03/18 09:19 Sodium Chloride 0.9% [Saline Flush] 10 ml FLUSH ASDIRECTED PRN Sodium Chloride 0.9% [Saline Flush] 2.5 ml FLUSH ASDIRECTED PRN Saline Lock Insert [OM.PC] Stat 09/03/18 09:38 EKG 12 Lead [EKG Documentation Completion] [RC] STAT - Assessment/Plan Last 24 Hours: My Active Orders 09/03/18 09:18 Blood Glucose Check, Bedside [RC] ONETIME 09/03/18 09:19 Sodium Chloride 0.9% [Saline Flush] 10 ml FLUSH ASDIRECTED PRN Sodium Chloride 0.9% [Saline Flush] 2.5 ml FLUSH ASDIRECTED PRN Saline Lock Insert [OM.PC] Stat 09/03/18 09:38 EKG 12 Lead [EKG Documentation Completion] [RC] STAT
[2018-09-03 09:51] VITALS: BP 157/48
[2018-09-03 10:11] LABS: CHLORIDE,CL 101 mmol/L (98-107); SODIUM,NA 136 mmol/L (136-148)
== END 2018-09-03 12:46 | disposition home or self-care (01) ==
LOC: MW.ED 09:10
DX: T38.3X1A Poisoning by insulin and oral hypoglycemic [antidiabetic] drugs, accidental (unintentional), initial encounter (principal); I10 Essential (primary) hypertension; Z88.1 Allergy status to other antibiotic agents; Z88.5 Allergy status to narcotic agent; Z79.899 Other long term (current) drug therapy
CPT/HCPCS: 36415; 80053; 82962; 85025; 93005; 99284-25

== ENCOUNTER 2018-09-07 19:17 | Emergency (ER) | payer MEDICAID ==
--- NOTE | 2018-09-07 19:26 | EDM.PDOC ---
ED HPI GENERAL MEDICAL PROBLEM - General Chief Complaint: Lower Extremity Injury/Pain Stated Complaint: FOOT CRACKED Time Seen by Provider: 09/07/18 19:20 Source of Information: Reports: Patient History Limitations: Reports: No Limitations - History of Present Illness INITIAL COMMENTS - FREE TEXT/NARRATIVE: HISTORY AND PHYSICAL: Diabetic Foot Infection History of present illness: Patient is a 52-year-old male who presents to the emergency room today with complaints of a diabetic foot ulcer of the left heel. He states approximately a week and a half ago he noticed a "crack" to his left heel which progressively got larger. He states that callus was peeled back over the past week and has "fallen off". He does have an ulcer to the left calcaneus with erythema around the heel and going up to the posterior ankle. He states he has been trying to take care of this on his own, and is concerned that it is getting worse. He states he has been using topical bacitracin ointment to the area. Has had minimal drainage coming from the site. Patient has a past medical history of type 1 diabetes, hypertension, renal transplant approx 9 years ago. Patient denies any fever, chills, headache, change in vision, syncope or near syncope. Denies any chest pain, back pain, shortness of breath or cough. Denies any abdominal pain, nausea, vomiting, diarrhea, constipation or dysuria. Has not noted any blood in urine or stool. Patient has been eating and drinking appropriately. Review of systems: As per history of present illness and below otherwise all systems reviewed and negative. Past medical history: As per history of present illness and as reviewed below otherwise noncontributory. Surgical history: As per history of present illness and as reviewed below otherwise noncontributory. Social history: See social history for further information Family history: As per history of present illness and as reviewed below otherwise noncontributory. Physical exam: General: Well-developed and well-nourished 52-year-old male. Alert and oriented. Nontoxic appearing and in no acute distress. HEENT: Atraumatic, normocephalic, pupils equal and reactive bilaterally, negative for conjunctival pallor or scleral icterus, mucous membranes moist, trachea midline. No drooling or trismus noted. No meningeal signs. No hot potato voice noted. Lungs: Clear to auscultation, breath sounds equal bilaterally, chest nontender. Heart: S1S2, regular rate and rhythm without overt murmur Abdomen: Soft, nondistended, nontender. Negative for masses. Skin: Patient does have a large ulcer noted to the left heel. It appears that the callus as been removed and now has a center point which appears tender to palpation and ulcerated. Diffuse erythema going up the posterior ankle and into the medial malleolus. Otherwise skin is intact, warm, dry. No lesions or rashes noted. Extremities: Atraumatic, moves all extremities per self without difficulty or deficits, negative for cords or calf pain. Strong pedal pulse. Capillary refill less than 3 seconds. Positive CMS of the affected extremity. Neurovascular unremarkable. Neuro: Awake, alert, oriented. Cranial nerves II through XII unremarkable. Cerebellum unremarkable. Motor and sensory unremarkable throughout. Exam nonfocal. Notes: Dr. Roger was consulted on this patient. Will admit for IV antibiotics and continued monitoring and evaluation. Dr Roger would like Vancomycin started. Patient is aware and agreeable to plan of care. Diagnostics: CBC, CMP, blood culture, foot x-ray Therapeutics: IV Vancomycin Impression: Diabetic foot ulcer with cellulitis Plan: Observation admission to Med/Surg Definitive disposition and diagnosis as appropriate pending reevaluation and review of above. Left Leg Pain Score (Numeric/FACES): 7 - Related Data Allergies Allergy/AdvReac Type Severity Reaction Status Date / Time azithromycin Allergy disoriented Verified 09/07/18 19:27 morphine Allergy Swelling Verified 09/07/18 19:27 Home Meds: Home Meds Metoprolol Succinate [Toprol XL] 25 mg PO DAILY 11/05/13 [History] Tacrolimus [Astagraf Xl] 5 mg PO DAILY 11/05/13 [History] atorvaSTATin [Lipitor] 10 mg PO DAILY 11/05/13 [History] predniSONE 5 mg PO DAILY 11/05/13 [History] Insulin Aspart [NovoLOG] 1 injection SUBCUT TIDAC 08/02/14 [History] LORazepam [Ativan] 0.5 mg PO Q6H PRN 08/02/14 [History] Multivitamin [Multiple Vitamins] 1 tab PO DAILY 08/02/14 [History] Mycophenolate Mofetil [Cellcept] 500 mg PO DAILY 08/02/14 [History] Insulin Degludec [Tresiba] 34 units SQ DAILY 09/07/18 [History] PARoxetine [Paxil] 10 mg PO DAILY 09/07/18 [History] Past Medical History HEENT History: Reports: Sinusitis Cardiovascular History: Reports: Hypertension Respiratory History: Reports: None Gastrointestinal History: Reports: None Other Gastrointestinal History: indigestion, abdominal pain Other Genitourinary History: kidney transplant 5 YEARS AGO Musculoskeletal History: Reports: None Neurological History: Reports: None Psychiatric History: Reports: Anxiety Endocrine/Metabolic History: Reports: Diabetes, Type I Hematologic History: Reports: None 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 Other Immunologic History: Kidney Transplant Oncologic (Cancer) History: Reports: Other (See Below) Other Oncologic History: skin Dermatologic History: Reports: None - Infectious Disease History Infectious Disease History: Reports: None - Past Surgical History HEENT Surgical History: Reports: Eye Surgery Cardiovascular Surgical History: Reports: Coronary Artery Stent GI Surgical History: Reports: Appendectomy Other Male Surgeries/Procedures: kidney transplant Social & Family History - Family History Family Medical History: Noncontributory Endocrine/Metabolic: Reports: Diabetes, Type I - Caffeine Use Caffeine Use: Reports: Soda Review of Systems - Review of Systems Review Of Systems: ROS reveals no pertinent complaints other than HPI. ED EXAM, GENERAL - Physical Exam Exam: See Below (See dictation) Course - Vital Signs Last Recorded V/S: Last Vital Signs Temp 97.6 F 09/07/18 19:25 Pulse 103 H 09/07/18 19:25 Resp 16 09/07/18 19:25 BP 150/53 H 09/07/18 19:25 Pulse Ox 98 09/07/18 19:25 - Orders/Labs/Meds Orders: Active Orders 24 hr Category Date Time Status Admission Status [Patient Status] [ADT] Stat ADT 09/07/18 20:46 Ordered Foot 2V Lt [CR] Stat Exams 09/07/18 19:33 Taken CULTURE BLOOD [BC] Stat Lab 09/07/18 19:43 Received CULTURE BLOOD [BC] Stat Lab 09/07/18 20:03 Received Sodium Chloride 0.9% [Saline Flush] Med 09/07/18 19:33 Active 10 ml FLUSH ASDIRECTED PRN Sodium Chloride 0.9% [Saline Flush] Med 09/07/18 19:33 Active 2.5 ml FLUSH ASDIRECTED PRN Blood Culture x2 Reflex Set [OM.PC] Stat Ot 09/07/18 19:34 Ordered Saline Lock Insert [OM.PC] Stat Ot 09/07/18 19:33 Ordered Medication Orders Sodium Chloride (Saline Flush) 10 ml FLUSH ASDIRECTED PRN PRN Reason: Keep Vein Open Sodium Chloride (Saline Flush) 2.5 ml FLUSH ASDIRECTED PRN PRN Reason: Keep Vein Open Labs: Laboratory Tests 09/07/18 09/07/18 Range/Units 19:43 19:43 WBC 7.79 (4.0-11.0) K/uL RBC 4.55 (4.50-5.90) M/uL Hgb 13.8 (13.0-17.0) g/dL Hct 42.4 (38.0-50.0) % MCV 93.2 (80.0-98.0) fL MCH 30.3 (27.0-32.0) pg MCHC 32.5 (31.0-37.0) g/dL RDW Std Deviation 45.3 (28.0-62.0) fl RDW Coeff of Sukhdeep 13 (11.0-15.0) % Plt Count 203 (150-400) K/uL MPV 9.80 (7.40-12.00) fL Neut % (Auto) 67.3 (48.0-80.0) % Lymph % (Auto) 19.9 (16.0-40.0) % [place] % (Auto) 11.6 (0.0-15.0) % Eos % (Auto) 0.9 (0.0-7.0) % Baso % (Auto) 0.3 (0.0-1.5) % Neut # (Auto) 5.3 (1.4-5.7) K/uL Lymph # (Auto) 1.6 (0.6-2.4) K/uL [place] # (Auto) 0.9 H (0.0-0.8) K/uL Eos # (Auto) 0.1 (0.0-0.7) K/uL Baso # (Auto) 0.0 (0.0-0.1) K/uL Nucleated RBC % 0.0 /100WBC Nucleated RBCs # 0 K/uL Sodium 135 L (136-148) mmol/L Potassium 4.3 (3.5-5.1) mmol/L Chloride 99 (98-107) mmol/L Carbon Dioxide 24.8 (21.0-32.0) mmol/L BUN 22 H (7.0-18.0) mg/dL Creatinine 0.9 (0.8-1.3) mg/dL Est Cr Clr Drug Dosing 107.78 mL/min Estimated GFR (MDRD) > 60.0 ml/min Glucose 250 H (74-106) mg/dL Calcium 9.0 (8.5-10.1) mg/dL Total Bilirubin 0.5 (0.2-1.0) mg/dL AST 24 (15-37) IU/L ALT 30 (14-63) IU/L Alkaline Phosphatase 105 (46-116) U/L Total Protein 7.1 (6.4-8.2) g/dL Albumin 3.6 (3.4-5.0) g/dL Globulin 3.5 (2.6-4.0) g/dL Albumin/Globulin Ratio 1.0 (0.9-1.6) Meds: Medications Generic Name Dose Route Start Last Admin Trade Name Freq PRN Reason Stop Dose Admin Sodium Chloride 10 ml 09/07/18 19:33 Saline Flush FLUSH ASDIRECTED PRN Keep Vein Open Sodium Chloride 2.5 ml 09/07/18 19:33 Saline Flush FLUSH ASDIRECTED PRN Keep Vein Open Departure - Departure Time of Disposition: 20:50 Disposition: Refer to Observation Clinical Impression: Diabetic foot infection - Discharge Information Referrals: PCP,Unknown [Primary Care Provider] - Forms: ED Department Discharge - My Orders Last 24 Hours: My Active Orders 09/07/18 19:33 Foot 2V Lt [CR] Stat Sodium Chloride 0.9% [Saline Flush] 10 ml FLUSH ASDIRECTED PRN Sodium Chloride 0.9% [Saline Flush] 2.5 ml FLUSH ASDIRECTED PRN Saline Lock Insert [OM.PC] Stat 09/07/18 19:34 Blood Culture x2 Reflex Set [OM.PC] Stat 09/07/18 19:43 CULTURE BLOOD [BC] Stat 09/07/18 20:03 CULTURE BLOOD [BC] Stat 09/07/18 20:46 Admission Status [Patient Status] [ADT] Stat - Assessment/Plan Last 24 Hours: My Active Orders 09/07/18 19:33 Foot 2V Lt [CR] Stat Sodium Chloride 0.9% [Saline Flush] 10 ml FLUSH ASDIRECTED PRN Sodium Chloride 0.9% [Saline Flush] 2.5 ml FLUSH ASDIRECTED PRN Saline Lock Insert [OM.PC] Stat 09/07/18 19:34 Blood Culture x2 Reflex Set [OM.PC] Stat 09/07/18 19:43 CULTURE BLOOD [BC] Stat 09/07/18 20:03 CULTURE BLOOD [BC] Stat 09/07/18 20:46 Admission Status [Patient Status] [ADT] Stat
[2018-09-07] MEDS ORDERED: Sodium Chloride 0.9% 10 ML Syringe FLUSH PRN (19:33)
[2018-09-07] MEDS ORDERED: Sodium Chloride 0.9% 2.5 ML Syringe FLUSH PRN (19:33)
[2018-09-07 20:32] LABS: CHLORIDE,CL 99 mmol/L (98-107); SODIUM,NA 135 mmol/L (136-148)
[2018-09-07 22:39] VITALS: BP 164/47
--- NOTE | 2018-09-08 10:29 | CR ---
EXAM DATE: 09/07/18 PATIENT'S AGE: 52 Patient: ELIAN BELLA Facility: [facility] Site Site : [id number] Study: XRay-Extremity Left FOOT [id number]/20/2019 8:21:49 PM Ordering Physician: GWEN Final Report: INDICATION: Ulcer over left heel. COMPARISON: 12/04/2014. FINDINGS/IMPRESSION: Skin defect consistent with a shallow ulcer over the plantar aspect of the left heel. No radiographic evidence of osteomyelitis. Scattered minor degenerative changes in the foot. No fractures. Atherosclerotic vascular calcifications in the soft tissues, as before. Dictated by Barry Arriaza MD @ 09/07/2018 8:37:47 PM Dictated by: Barry Arriaza MD @ 09/07/2018 20:38:10 Signed by: Barry Arriaza MD @09/07/2018 8:38:10 PM (Electronic Signature) Report Signed by Proxy. TRENT
== END 2018-09-07 22:30 | disposition left against medical advice (07) ==
LOC: MW.ED 19:17
DX: E10.621 Type 1 diabetes mellitus with foot ulcer (principal); L97.429 Non-pressure chronic ulcer of left heel and midfoot with unspecified severity; L03.116 Cellulitis of left lower limb; F41.9 Anxiety disorder, unspecified; Z88.1 Allergy status to other antibiotic agents; Z88.5 Allergy status to narcotic agent; Z79.899 Other long term (current) drug therapy
CPT/HCPCS: 36415; 73620; 80053; 82962; 85025; 87040; 96365; 99283; J3370; J7050; 99284

== ENCOUNTER 2018-09-23 21:57 | Emergency (ER) | payer MEDICAID ==
--- NOTE | 2018-09-23 22:17 | EDM.PDOC ---
ED HPI GENERAL MEDICAL PROBLEM - General Chief Complaint: General Stated Complaint: OUT OF INSULIN Time Seen by Provider: 09/23/18 22:06 - History of Present Illness INITIAL COMMENTS - FREE TEXT/NARRATIVE: HISTORY AND PHYSICAL: History of present illness: The patient is a 52-year-old male who was well-known to this emergency department and his provider and has a history of diabetes which he requires insulin for as well as a renal transplant hypertension and hypercholesterolemia. The patient says that he takes Humalog before he eats and checks his blood sugar regularly and over the last 2 days he has not had any of his insulin because he did not go to the pharmacy to refill it. He tells me that he does have a prescription ready for him but he just not had the time because he is in the process of moving. He has no systemic complaints of chest pain fever chills nausea vomiting or diarrhea and has been trying to eat and drink but he is concerned about doing that without his insulin. He says that he feels somewhat run down but he doesn't have polyuria or polydipsia. He does have an Accu-Chek machine at home and he does check his blood sugars. He says that he is only here to get some insulin. Review of systems: As per history of present illness and below otherwise all systems reviewed and negative. Past medical history: As per history of present illness and as reviewed below otherwise noncontributory. Surgical history: As per history of present illness and as reviewed below otherwise noncontributory. Social history: No reported history of drug or alcohol abuse. Family history: As per history of present illness and as reviewed below otherwise noncontributory. Physical exam: HEENT: Atraumatic, normocephalic, negative for conjunctival pallor or scleral icterus, mucous membranes moist, throat clear, neck supple, nontender, trachea midline. Lungs: Clear to auscultation, breath sounds equal bilaterally, chest nontender. Heart: S1S2, regular rate and rhythm no overt murmurs Abdomen: Soft, nondistended, nontender. Negative for masses or hepatosplenomegaly. NABS, the patient's renal graft in the right lower quadrant is nontender or body Pelvis: Stable nontender. Genitourinary: Deferred. Rectal: Deferred. Extremities: Atraumatic, negative for cords or calf pain. Neurovascular unremarkable. Neuro: Awake, alert, oriented. Cranial nerves II through XII unremarkable. Cerebellum unremarkable. Motor and sensory unremarkable throughout. Exam nonfocal. Diagnostics: The patient declines Therapeutics: The patient says that he would normally take 5 units of regular insulin for today's Accu-Chek and would like a dose of that so he can go home and eat a meal and go to bed. I will give him a dose of the 5 units of regular insulin and ask him that he check his blood sugar before bed. He tells me that he has a prescription that he can fill in the morning which she will do. Impression: Medication dosing, out of insulin Definitive disposition and diagnosis as appropriate pending reevaluation and review of above. - Related Data Allergies Allergy/AdvReac Type Severity Reaction Status Date / Time azithromycin Allergy disoriented Verified 09/23/18 22:08 morphine Allergy Swelling Verified 09/23/18 22:08 Home Meds: Home Meds Metoprolol Succinate [Toprol XL] 25 mg PO DAILY 11/05/13 [History] Tacrolimus [Astagraf Xl] 5 mg PO DAILY 11/05/13 [History] atorvaSTATin [Lipitor] 10 mg PO DAILY 11/05/13 [History] predniSONE 5 mg PO DAILY 11/05/13 [History] Insulin Aspart [NovoLOG] 1 injection SUBCUT TIDAC 08/02/14 [History] LORazepam [Ativan] 0.5 mg PO Q6H PRN 08/02/14 [History] Multivitamin [Multiple Vitamins] 1 tab PO DAILY 08/02/14 [History] Mycophenolate Mofetil [Cellcept] 500 mg PO DAILY 08/02/14 [History] Insulin Degludec [Tresiba] 34 units SQ DAILY 09/07/18 [History] PARoxetine [Paxil] 10 mg PO DAILY 09/07/18 [History] Past Medical History HEENT History: Reports: Sinusitis Cardiovascular History: Reports: Hypertension Respiratory History: Reports: None Gastrointestinal History: Reports: None Other Gastrointestinal History: indigestion, abdominal pain Other Genitourinary History: kidney transplant 5 YEARS AGO Musculoskeletal History: Reports: None Neurological History: Reports: None Psychiatric History: Reports: Anxiety Endocrine/Metabolic History: Reports: Diabetes, Type I Hematologic History: Reports: None 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 Other Immunologic History: Kidney Transplant Oncologic (Cancer) History: Reports: Other (See Below) Other Oncologic History: skin Dermatologic History: Reports: None - Infectious Disease History Infectious Disease History: Reports: None - Past Surgical History HEENT Surgical History: Reports: Eye Surgery Cardiovascular Surgical History: Reports: Coronary Artery Stent GI Surgical History: Reports: Appendectomy Other Male Surgeries/Procedures: kidney transplant Social & Family History - Family History Family Medical History: Noncontributory Endocrine/Metabolic: Reports: Diabetes, Type I - Caffeine Use Caffeine Use: Reports: Soda ED ROS GENERAL - Review of Systems Review Of Systems: ROS reveals no pertinent complaints other than HPI. ED EXAM, GENERAL - Physical Exam Exam: See Below (See dictation) Course - Vital Signs Last Recorded V/S: Last Vital Signs Temp 36.2 C 09/23/18 22:04 Pulse 83 09/23/18 22:04 Resp BP 143/47 H 09/23/18 22:04 Pulse Ox 97 09/23/18 22:04 - Orders/Labs/Meds Orders: Active Orders 24 hr Category Date Time Status Insulin Regular, Human [NovoLIN R] Med 09/24/18 22:13 Once 5 unit SUBCUT ONETIME ONE Departure - Departure Time of Disposition: 22:16 Disposition: Home, Self-Care 01 Condition: Good Clinical Impression: Medication refill - Discharge Information Referrals: Marvin Valle MD [Primary Care Provider] - Additional Instructions: The following information is given to patients seen in the emergency department who are being discharged to home. This information is to outline your options for follow-up care. We provide all patients seen in our emergency department with a follow-up referral. The need for follow-up, as well as the timing and circumstances, are variable depending upon the specifics of your emergency department visit. If you don't have a primary care physician on staff, we will provide you with a referral. We always advise you to contact your personal physician following an emergency department visit to inform them of the circumstance of the visit and for follow-up with them and/or the need for any referrals to a consulting specialist. The emergency department will also refer you to a specialist when appropriate. This referral assures that you have the opportunity for followup care with a specialist. All of these measure are taken in an effort to provide you with optimal care, which includes your followup. Under all circumstances we always encourage you to contact your private physician who remains a resource for coordinating your care. When calling for followup care, please make the office aware that this follow-up is from your recent emergency room visit. If for any reason you are refused follow-up, please contact the [facility] emergency department at and ask to speak to the emergency department charge nurse. [address] [place] [address] Please fill your prescription that you have ready for you for your insulin in the morning so that you will have your doses. Please take your blood prior to going to bed and please immediately go home after this ED visit and eat some food. Please contact her provider at [facility] for reevaluation further care and return to ER as needed as discussed - My Orders Last 24 Hours: My Active Orders 09/24/18 22:13 Insulin Regular, Human [NovoLIN R] 5 unit SUBCUT ONETIME ONE - Assessment/Plan Last 24 Hours: My Active Orders 09/24/18 22:13 Insulin Regular, Human [NovoLIN R] 5 unit SUBCUT ONETIME ONE
[2018-09-23] MEDS ORDERED: Insulin Regular, Human 100 Units/ML 10 ML Vial ONE (22:21)
[2018-09-23 22:25] VITALS: BP 131/51
[2018-09-24] MEDS ORDERED: Insulin Regular, Human 100 Units/ML 10 ML Vial SUBCUT ONE (22:13)
== END 2018-09-23 22:29 | disposition home or self-care (01) ==
LOC: MW.ED 21:57
DX: Z76.0 Encounter for issue of repeat prescription (principal); E10.9 Type 1 diabetes mellitus without complications; I10 Essential (primary) hypertension; Z79.899 Other long term (current) drug therapy
CPT/HCPCS: 82962; 99281; 99283

== ENCOUNTER 2018-11-04 18:32 | Emergency (ER) | payer MEDICARE, MEDICAID ==
[2018-11-04] MEDS ORDERED: Sodium Chloride 0.9% 1,000 ML IV ONE (18:57)
--- NOTE | 2018-11-04 18:57 | EDM.PDOC ---
ED HPI GENERAL MEDICAL PROBLEM - General Chief Complaint: Lower Extremity Injury/Pain Stated Complaint: DIZZY,WEAK,POSSIBLE INFECTION IN LT FOOT Time Seen by Provider: 11/04/18 18:56 Source of Information: Reports: Patient History Limitations: Reports: No Limitations - History of Present Illness INITIAL COMMENTS - FREE TEXT/NARRATIVE: HISTORY AND PHYSICAL: History of present illness: patient is a 52-year-old male presents to the ED with multiple complaints. Medical history significant for insulin-dependent diabetic, renal transplant, left lower extremity diabetic wound. He states that he has been doctoring for this wound on his leg and was seen in the minor ER recently. He was placed on 3 different antibiotics and states that the wound is not getting any better. He recently started feeling dizzy and weak and states that he has been having palpitations. He had stents placed about 2 months ago. He denies fevers, chills , abdominal pain,diarrhea or vomiting. He states he has felt nauseous. Review of systems: As per history of present illness and below otherwise all systems reviewed and negative. Past medical history: As per history of present illness and as reviewed below otherwise noncontributory. Surgical history: As per history of present illness and as reviewed below otherwise noncontributory. Social history: No reported history of drug or alcohol abuse. Family history: As per history of present illness and as reviewed below otherwise noncontributory. Physical exam: General: Patient sitting comfortably in no acute distress and nontoxic appearing HEENT: Atraumatic, normocephalic, pupils reactive, negative for conjunctival pallor or scleral icterus, mucous membranes moist, throat clear, neck supple, nontender, trachea midline. No meningeal signs. Lungs: Clear to auscultation, breath sounds equal bilaterally, chest nontender. Heart: S1S2, regular, negative for clicks, rubs, or overt murmur. Abdomen: Soft, nondistended, nontender. Negative for masses or hepatosplenomegaly. Negative for costovertebral tenderness. No rigidity, rebound , guarding. Pelvis: Stable nontender. Genitourinary: Deferred. Rectal: Deferred. Extremities: There is a 4x3cm wound to the left heel without purulence or erythema. There is a tac noted to the pad of the foot below the 5th phalanx.Atraumatic, negative for cords or calf pain. Neurovascular unremarkable. Neuro: Awake, alert, oriented. Cranial nerves II through XII unremarkable. Cerebellum unremarkable. Motor and sensory unremarkable throughout. Exam nonfocal. Notes: Tac removed from foot and area was cleansed with chlorhexidine. tdap updated Diagnostics: CBC, CMP, troponin, EKG, left foot x-ray Therapeutics: 1L NS IV tdap Prescriptions: Impression: Diabetic foot wound, dizziness Plan: 1. Follow up with podiatry as discussed 2. Return to ED as needed as discussed Definitive disposition and diagnosis as appropriate pending reevaluation and review of above. Left Leg Pain Score (Numeric/FACES): 5 - Related Data Allergies Allergy/AdvReac Type Severity Reaction Status Date / Time azithromycin Allergy disoriented Verified 11/04/18 18:51 morphine Allergy Swelling Verified 11/04/18 18:51 Home Meds: Home Meds Metoprolol Succinate [Toprol XL] 25 mg PO DAILY 11/05/13 [History] Tacrolimus [Astagraf Xl] 5 mg PO DAILY 11/05/13 [History] atorvaSTATin [Lipitor] 10 mg PO DAILY 11/05/13 [History] predniSONE 5 mg PO DAILY 11/05/13 [History] Insulin Aspart [NovoLOG] 1 injection SUBCUT TIDAC 08/02/14 [History] Multivitamin [Multiple Vitamins] 1 tab PO DAILY 08/02/14 [History] Mycophenolate Mofetil [Cellcept] 500 mg PO DAILY 08/02/14 [History] Insulin Degludec [Tresiba] 34 units SQ DAILY 09/07/18 [History] PARoxetine [Paxil] 10 mg PO DAILY 09/07/18 [History] Clopidogrel [Plavix] 75 mg PO DAILY 11/04/18 [History] Past Medical History HEENT History: Reports: Sinusitis Cardiovascular History: Reports: Hypertension Respiratory History: Reports: None Gastrointestinal History: Reports: None Other Gastrointestinal History: indigestion, abdominal pain Other Genitourinary History: kidney transplant 5 YEARS AGO Musculoskeletal History: Reports: None Neurological History: Reports: None Psychiatric History: Reports: Anxiety Endocrine/Metabolic History: Reports: Diabetes, Type I Hematologic History: Reports: None 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 Other Immunologic History: Kidney Transplant Oncologic (Cancer) History: Reports: Other (See Below) Other Oncologic History: skin Dermatologic History: Reports: None - Infectious Disease History Infectious Disease History: Reports: None - Past Surgical History HEENT Surgical History: Reports: Eye Surgery Cardiovascular Surgical History: Reports: Coronary Artery Stent GI Surgical History: Reports: Appendectomy Other Male Surgeries/Procedures: kidney transplant Social & Family History - Family History Family Medical History: Noncontributory Endocrine/Metabolic: Reports: Diabetes, Type I - Caffeine Use Caffeine Use: Reports: Soda Review of Systems - Review of Systems Review Of Systems: ROS reveals no pertinent complaints other than HPI. ED EXAM, GENERAL - Physical Exam Exam: See Below (see dictation) Course - Vital Signs Last Recorded V/S: Last Vital Signs Temp 97.7 F 11/04/18 18:53 Pulse 103 H 11/04/18 21:48 Resp 20 11/04/18 21:48 BP 127/67 11/04/18 21:48 Pulse Ox 97 11/04/18 21:48 Orthostatic Blood Pressure [ 111/64 Standing] Orthostatic Blood Pressure [ 184/67 Sitting] Orthostatic Blood Pressure [ 176/64 Supine] - Orders/Labs/Meds Orders: Active Orders 24 hr Category Date Time Status EKG Documentation Completion [RC] STAT Care 11/04/18 18:52 Active Orthostatic Vital Signs [RC] ASDIRECTED Care 11/04/18 19:32 Active Vaccines to be Administered [RC] PER UNIT ROUTINE Care 11/04/18 20:59 Active CULTURE BLOOD [BC] Stat Lab 11/04/18 19:10 Received CULTURE BLOOD [BC] Stat Lab 11/04/18 19:22 Received Blood Culture x2 Reflex Set [OM.PC] Stat Oth 11/04/18 18:57 Ordered Saline Lock Insert [OM.PC] Stat Oth 11/04/18 18:58 Ordered Labs: Laboratory Tests 11/04/18 11/04/18 11/04/18 Range/Units 19:10 19:10 19:10 WBC 7.75 (4.0-11.0) K/uL RBC 4.37 L (4.50-5.90) M/uL Hgb 12.6 L (13.0-17.0) g/dL Hct 39.2 (38.0-50.0) % MCV 89.7 (80.0-98.0) fL MCH 28.8 (27.0-32.0) pg MCHC 32.1 (31.0-37.0) g/dL RDW Std Deviation 45.1 (28.0-62.0) fl RDW Coeff of Sukhdeep 14 (11.0-15.0) % Plt Count 242 (150-400) K/uL MPV 9.90 (7.40-12.00) fL Neut % (Auto) 72.4 (48.0-80.0) % Lymph % (Auto) 16.5 (16.0-40.0) % Elliott % (Auto) 10.3 (0.0-15.0) % Eos % (Auto) 0.5 (0.0-7.0) % Baso % (Auto) 0.3 (0.0-1.5) % Neut # (Auto) 5.6 (1.4-5.7) K/uL Lymph # (Auto) 1.3 (0.6-2.4) K/uL Elliott # (Auto) 0.8 (0.0-0.8) K/uL Eos # (Auto) 0.0 (0.0-0.7) K/uL Baso # (Auto) 0.0 (0.0-0.1) K/uL Nucleated RBC % 0.0 /100WBC Nucleated RBCs # 0 K/uL Lactate 1.2 (0.20-2.00) mmol/L Sodium 131 L (136-148) mmol/L Potassium 3.9 (3.5-5.1) mmol/L Chloride 95 L (98-107) mmol/L Carbon Dioxide 28.6 (21.0-32.0) mmol/L BUN 16 (7.0-18.0) mg/dL Creatinine 1.1 (0.8-1.3) mg/dL Est Cr Clr Drug Dosing 75.11 mL/min Estimated GFR (MDRD) > 60.0 ml/min Glucose 338 H (74-106) mg/dL Calcium 9.2 (8.5-10.1) mg/dL Total Bilirubin 0.3 (0.2-1.0) mg/dL AST 14 L (15-37) IU/L ALT 11 L (14-63) IU/L Alkaline Phosphatase 96 (46-116) U/L Troponin I < 0.050 (0.000-0.056) ng/mL Total Protein 7.4 (6.4-8.2) g/dL Albumin 3.1 L (3.4-5.0) g/dL Globulin 4.3 H (2.6-4.0) g/dL Albumin/Globulin Ratio 0.7 L (0.9-1.6) Meds: Medications Discontinued Medications Generic Name Dose Route Start Last Admin Trade Name Freq PRN Reason Stop Dose Admin Diphtheria/Tetanus/Acell Pertussis 0.5 ml 11/04/18 20:59 11/04/18 21:17 Adacel IM 11/04/18 21:00 0.5 ml .ONCE ONE Administration Sodium Chloride 1,000 mls @ 999 mls/hr 11/04/18 18:57 11/04/18 19:48 Normal Saline IV 11/04/18 19:57 999 mls/hr STAT ONE Administration Sodium Chloride 10 ml 11/04/18 18:58 Saline Flush FLUSH ASDIRECTED PRN Keep Vein Open Sodium Chloride 2.5 ml 11/04/18 18:58 Saline Flush FLUSH ASDIRECTED PRN Keep Vein Open Departure - Departure Time of Disposition: 20:59 Disposition: Home, Self-Care 01 Condition: Good Clinical Impression: Dizziness, Wound of foot Clinical Impression: (Ruled Out): Diabetic acetonemia - Discharge Information Instructions: Diabetes Mellitus and Foot Care, Dizziness, [id number] Referrals: Marvin Valle MD [Primary Care Provider] - Forms: ED Department Discharge Additional Instructions: The following information is given to patients seen in the emergency department who are being discharged to home. This information is to outline your options for follow-up care. We provide all patients seen in our emergency department with a follow-up referral. The need for follow-up, as well as the timing and circumstances, are variable depending upon the specifics of your emergency department visit. If you don't have a primary care physician on staff, we will provide you with a referral. We always advise you to contact your personal physician following an emergency department visit to inform them of the circumstance of the visit and for follow-up with them and/or the need for any referrals to a consulting specialist. The emergency department will also refer you to a specialist when appropriate. This referral assures that you have the opportunity for follow-up care with a specialist. All of these measure are taken in an effort to provide you with optimal care, which includes your follow-up. Under all circumstances we always encourage you to contact your private physician who remains a resource for coordinating your care. When calling for follow-up care, please make the office aware that this follow-up is from your recent emergency room visit. If for any reason you are refused follow-up, please contact the [facility] Emergency Department at and asked to speak to the emergency department charge nurse. [facility] Primary Care - Podiatry [address] [place] [id number] [facility] [address] [place] [id number] 1. Follow up with podiatry as discussed 2. Return to ED as needed as discussed - My Orders Last 24 Hours: My Active Orders 11/04/18 18:52 EKG Documentation Completion [RC] STAT 11/04/18 18:57 Blood Culture x2 Reflex Set [OM.PC] Stat 11/04/18 18:58 Saline Lock Insert [OM.PC] Stat 11/04/18 19:10 CULTURE BLOOD [BC] Stat 11/04/18 19:22 CULTURE BLOOD [BC] Stat 11/04/18 19:32 Orthostatic Vital Signs [RC] ASDIRECTED 11/04/18 20:59 Vaccines to be Administered [RC] PER UNIT ROUTINE - Assessment/Plan Last 24 Hours: My Active Orders 11/04/18 18:52 EKG Documentation Completion [RC] STAT 11/04/18 18:57 Blood Culture x2 Reflex Set [OM.PC] Stat 11/04/18 18:58 Saline Lock Insert [OM.PC] Stat 11/04/18 19:10 CULTURE BLOOD [BC] Stat 11/04/18 19:22 CULTURE BLOOD [BC] Stat 11/04/18 19:32 Orthostatic Vital Signs [RC] ASDIRECTED 11/04/18 20:59 Vaccines to be Administered [RC] PER UNIT ROUTINE
[2018-11-04] MEDS ORDERED: Sodium Chloride 0.9% 10 ML Syringe FLUSH PRN (18:58)
[2018-11-04] MEDS ORDERED: Sodium Chloride 0.9% 2.5 ML Syringe FLUSH PRN (18:58)
[2018-11-04 19:47] LABS: CHLORIDE,CL 95 mmol/L (98-107); SODIUM,NA 131 mmol/L (136-148)
--- NOTE | 2018-11-04 20:39 | CR ---
Indication: Pain, heel infection Technique: Two-view left foot Comparison: September 07, 2018 Findings: Soft tissue loss in the heel. No bony erosions. Osteopenia. No acute fracture or subluxation. Vascular calcifications. Remote appearing deformity of the distal fibula. Impression: Soft tissue loss in the heel. No evidence for osteomyelitis. Osteopenia. Remote appearing deformity of the distal fibula. Dictated by Bella Garcia MD @ Nov 04 2018 8:37PM Signed by Dr. Bella Garcia @ Nov 04 2018 8:38PM
[2018-11-04] MEDS ORDERED: Diphtheria,Pertussis(Acell),Tetanus Vaccine 0.5 ML Syringe IM ONE (20:59)
[2018-11-04 22:01] VITALS: BP 127/67
== END 2018-11-04 21:48 | disposition home or self-care (01) ==
LOC: MW.ED 18:32
DX: E10.628 Type 1 diabetes mellitus with other skin complications (principal); S91.302A Unspecified open wound, left foot, initial encounter; Z23 Encounter for immunization; R42 Dizziness and giddiness; F41.9 Anxiety disorder, unspecified; I10 Essential (primary) hypertension; Z79.899 Other long term (current) drug therapy; Z88.1 Allergy status to other antibiotic agents; Z88.5 Allergy status to narcotic agent; X58.XXXA Exposure to other specified factors, initial encounter
CPT/HCPCS: 36415; 73620; 80053; 83605; 84484; 85025; 87040; 90471; 90715; 93005; 96360; 99284; J7040

== ENCOUNTER 2019-03-15 18:52 | Emergency (ER) | payer MEDICARE, MEDICAID ==
--- NOTE | 2019-03-15 19:23 | EDM.PDOC ---
ED HPI GENERAL MEDICAL PROBLEM - General Chief Complaint: Lower Extremity Injury/Pain Stated Complaint: CUT ON BACK OF LEG FROM PROSTHETIC Time Seen by Provider: 03/15/19 19:05 - History of Present Illness INITIAL COMMENTS - FREE TEXT/NARRATIVE: HISTORY AND PHYSICAL: History of present illness: Patient is a 53-year-old white male history diabetes and below the knee amputation on the left presents with concern of cutaneous ulcer where his prosthesis articulates with his left lower extremity. Review of systems: As per history of present illness and below otherwise all systems reviewed and negative. Past medical history: As per history of present illness and as reviewed below otherwise noncontributory. Surgical history: As per history of present illness and as reviewed below otherwise noncontributory. Social history: No reported history of drug or alcohol abuse. Family history: As per history of present illness and as reviewed below otherwise noncontributory. Physical exam: HEENT: Atraumatic, normocephalic, pupils reactive, negative for conjunctival pallor or scleral icterus, mucous membranes moist, throat clear, neck supple, nontender, trachea midline. Lungs: Clear to auscultation, breath sounds equal bilaterally, chest nontender. Heart: S1S2, regular, negative for clicks, rubs, or JVD. Abdomen: Soft, nondistended, nontender. Negative for masses or hepatosplenomegaly. Negative for costovertebral tenderness. Pelvis: Stable nontender. Genitourinary: Deferred. Rectal: Deferred. Extremities: Patient is noted epicutaneous ulcer that's approximately 2 cm moderate depth with some surrounding erythematous on the medial aspect slightly posterior at the level of the left knee.. Neuro: Awake, alert, oriented. Cranial nerves II through XII unremarkable. Cerebellum unremarkable. Motor and sensory unremarkable throughout. Exam nonfocal. Diagnostics: CBC CMP x-ray left knee Therapeutics: None Impression: #1 diabetic ulcer left lower extremity Definitive disposition and diagnosis as appropriate pending reevaluation and review of above. left post knee Pain Score (Numeric/FACES): 8 - Related Data Allergies Allergy/AdvReac Type Severity Reaction Status Date / Time azithromycin Allergy disoriented Verified 03/15/19 19:09 morphine Allergy Swelling Verified 03/15/19 19:09 Home Meds: Home Meds Metoprolol Succinate [Toprol XL] 25 mg PO DAILY 11/05/13 [History] Tacrolimus [Astagraf Xl] 1 mg PO BID 11/05/13 [History] atorvaSTATin [Lipitor] 10 mg PO DAILY 11/05/13 [History] predniSONE 5 mg PO DAILY 11/05/13 [History] Insulin Aspart [NovoLOG] 1 injection SUBCUT TIDAC 08/02/14 [History] Multivitamin [Multiple Vitamins] 1 tab PO DAILY 08/02/14 [History] Mycophenolate Mofetil [Cellcept] 500 mg PO DAILY 08/02/14 [History] Insulin Degludec [Tresiba] 34 units SQ DAILY 09/07/18 [History] PARoxetine [Paxil] 10 mg PO DAILY 09/07/18 [History] Clopidogrel [Plavix] 75 mg PO DAILY 11/04/18 [History] Past Medical History HEENT History: Reports: Sinusitis Cardiovascular History: Reports: Hypertension, [place], Stents Respiratory History: Reports: None Gastrointestinal History: Reports: None Other Gastrointestinal History: indigestion, abdominal pain Other Genitourinary History: kidney transplant 5 YEARS AGO Musculoskeletal History: Reports: None Neurological History: Reports: None Psychiatric History: Reports: Anxiety Endocrine/Metabolic History: Reports: Diabetes, Type I Hematologic History: Reports: None 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 Other Immunologic History: Kidney Transplant Oncologic (Cancer) History: Reports: Other (See Below) Other Oncologic History: skin Dermatologic History: Reports: None - Infectious Disease History Infectious Disease History: Reports: None - Past Surgical History HEENT Surgical History: Reports: Eye Surgery Cardiovascular Surgical History: Reports: Coronary Artery Stent GI Surgical History: Reports: Appendectomy Other Male Surgeries/Procedures: kidney transplant Social & Family History - Family History Family Medical History: Noncontributory Endocrine/Metabolic: Reports: Diabetes, Type I - Tobacco Use Smoking Status *Q: Never Smoker - Caffeine Use Caffeine Use: Reports: Soda - Recreational Drug Use Recreational Drug Use: No Review of Systems - Review of Systems Review Of Systems: Comprehensive ROS is negative, except as noted in HPI. ED EXAM, GENERAL - Physical Exam Exam: See Below (The dictation) Course - Vital Signs Last Recorded V/S: Last Vital Signs Temp 36.1 C 03/15/19 18:55 Pulse 94 03/15/19 18:55 Resp 18 03/15/19 18:55 BP 110/32 L 03/15/19 18:55 Pulse Ox 97 03/15/19 18:55 - Orders/Labs/Meds Orders: Active Orders 24 hr Category Date Time Status Knee 3V Lt [CR] Stat Exams 03/15/19 19:08 Ordered CBC WITH AUTO DIFF [HEME] Stat Lab 03/15/19 19:18 Received COMPREHENSIVE METABOLIC PN,CMP [CHEM] Stat Lab 03/15/19 19:18 Received Departure - Departure Time of Disposition: 19:23 Disposition: Home, Self-Care 01 Condition: Good Clinical Impression: Diabetic ulcer of knee - Discharge Information Referrals: Marvin Valle MD [Primary Care Provider] - - My Orders Last 24 Hours: My Active Orders 03/15/19 19:08 Knee 3V Lt [CR] Stat 03/15/19 19:18 CBC WITH AUTO DIFF [HEME] Stat COMPREHENSIVE METABOLIC PN,CMP [CHEM] Stat - Assessment/Plan Last 24 Hours: My Active Orders 03/15/19 19:08 Knee 3V Lt [CR] Stat 03/15/19 19:18 CBC WITH AUTO DIFF [HEME] Stat COMPREHENSIVE METABOLIC PN,CMP [CHEM] Stat
--- NOTE | 2019-03-15 19:41 | CR ---
Indication: Sore behind knee Technique: Three views of the left knee Comparison: None Findings: Degenerative changes of the left knee. No joint effusion is identified. A small joint effusion is identified. Extensive vascular calcifications are identified. Impression: Degenerative change. Dictated by Ana Mtz MD @ Mar 15 2019 7:37PM Signed by Dr. Ana Mtz @ Mar 15 2019 7:38PM
[2019-03-15 19:49] LABS: CARBON DIOXIDE,CO2 27.2 mmol/L (21.0-32.0); POTASSIUM,K 5.2 mmol/L (3.5-5.1)
[2019-03-15] MEDS ORDERED: Sodium Chloride 0.9% 1,000 ML IV ONE (19:53)
[2019-03-15] MEDS ORDERED: Insulin Regular, Human 100 Units/ML 10 ML Vial IVPUSH ONE (19:54)
[2019-03-15] MEDS ORDERED: Insulin Regular, Human 100 Units/ML 10 ML Vial SUBCUT ONE (19:55)
[2019-03-15 20:45] VITALS: BP 108/27; PULSE 96
== END 2019-03-15 20:42 | disposition home or self-care (01) ==
LOC: MW.ED 18:52
DX: E10.622 Type 1 diabetes mellitus with other skin ulcer (principal); L97.829 Non-pressure chronic ulcer of other part of left lower leg with unspecified severity; I10 Essential (primary) hypertension; I25.2 Old myocardial infarction; F41.9 Anxiety disorder, unspecified; Z88.1 Allergy status to other antibiotic agents; Z88.5 Allergy status to narcotic agent; Z79.4 Long term (current) use of insulin; Z79.899 Other long term (current) drug therapy; Z95.5 Presence of coronary angioplasty implant and graft; Z94.0 Kidney transplant status; Z79.02 Long term (current) use of antithrombotics/antiplatelets
CPT/HCPCS: 36415; 73562; 80053; 82962; 85025; 96361; 96372; 96374; 99283; J7040; J1815-GY

== ENCOUNTER 2020-02-10 06:31 | Emergency (ER) | payer MEDICARE, OTHER ==
[2020-02-10] MEDS ORDERED: DEXTROSE 5% IV ONE ×2 (06:42)
[2020-02-10] MEDS ORDERED: WATER IV ONE ×2 (06:42)
[2020-02-10] MEDS ORDERED: Sodium Chloride 0.9% 2.5 ML Syringe FLUSH PRN (06:42)
[2020-02-10] MEDS ORDERED: Sodium Chloride 0.9% 10 ML Syringe FLUSH PRN (06:42)
[2020-02-10] MEDS ORDERED: VANCOMYCIN IV ONE ×2 (06:42)
[2020-02-10] MEDS ORDERED: Sodium Chloride 0.9% 1,000 ML IV ONE (06:42)
[2020-02-10] MEDS ORDERED: Cefepime 2 GM in Sodium Chloride 0.9% 50 ML IV ONE (06:42)
[2020-02-10] MEDS ORDERED: Hydrocortisone Sodium Succinate 100 MG/2 ML SDV IV ONE (06:43)
--- NOTE | 2020-02-10 06:51 | PCM.SN.2 ---
- Free Text/Narrative Note: RME Note I have seen and evaluated the patient. Chief Complaint: Shortness of breath and chest pain Brief HPI: This 54-year-old male with a past medical history of renal transplant, on antirejection medications tacrolimus, CellCept and prednisone, and a left below-knee amputation presents to the emergency department complaining of shortness of breath and chest pain. He feels a rattle in his chest and was likely exposed to COVID-19 about 7 to 8 days ago. He states that he is sure that his son has it however I am not sure if the patient was actually tested. He has been running a fever at home. Has worsening shortness of breath. But denies any GI symptoms. No loss of sensation of smell or taste. ROS: Reviewed and agree Focused Exam: VITAL SIGNS: Reviewed. GENERAL: Awake, conversant, GCS 15, appears to be in mild to moderate distress HEAD: No visible signs of trauma EYES: Pupils equal, EOM grossly intact EARS: Hearing grossly intact. MOUTH: No visible lesions NECK: Appears supple CHEST: Mild tachypnea, audible rhonchi CARDIAC: Regular rhythm ABDOMEN: Soft, nontender, benign exam NEUROLOGIC EXAM: Awake and Alert, non-focal SKIN: Multiple small erythematous hemorrhagic crusted areas of rash that the patient states is chronic EXTREMITIES: Left below-knee amputation with prosthesis in place VASCULAR: Appears well perfused Assessment & Plan: Shortness of breath: Differential diagnosis includes asthma, COPD, pneumonia, congestive heart failure, anemia, thyroid disease, acidosis, pulmonary embolism, myocardial infarction, sepsis. Highly suspicious for pandemic COVID-19. We will obtain an EKG, chest x-ray, laboratory analysis, and given that the patient takes prednisone daily we will also give Solu-Cortef 100 mg IV for stress dose steroids. IV fluids will be initiated and empiric antibiotics will be given. 12 lead EKG interpretation Obtained: February 10, 2020 at 6:33 AM Rhythm: Sinus Rate: 85 [place]: Normal Intervals: Normal ST/T Segments: No acute ischemic changes Interpretation: Sinus Rhythm Given that the patient has a pending work-up at time of turnover I will be signing outpatient care to the oncoming physician Dr. Preston Mary
[2020-02-10] MEDS ORDERED: Cefepime 50 ML ONE (06:54)
--- NOTE | 2020-02-10 07:09 | CR ---
INDICATION: Atypical chest pain TECHNIQUE: Chest 1 views COMPARISON: June 12, 2018 FINDINGS: Cardiovascular and mediastinum: Heart size and vasculature are normal in caliber and appearance. Lungs and pleural spaces: Lungs are clear. No sign of infiltrate or mass. No sign of pleural effusion. No pneumothorax. Bones and soft tissues: No significant findings. IMPRESSION: Negative chest. Dictated by Vladimir Blue MD @ Feb 10 2020 7:07AM Signed by Dr. Vladimir Blue @ Feb 10 2020 7:08AM
[2020-02-10 07:13] LABS: BLOOD UREA NITROGEN,BUN 25 mg/dL (7.0-18.0); CARBON DIOXIDE,CO2 28.2 mmol/L (21.0-32.0); CHLORIDE,CL 95 mmol/L (98-107); GLUCOSE RANDOM 225 mg/dL (74-106); POTASSIUM,K 3.9 mmol/L (3.5-5.1); SODIUM,NA 131 mmol/L (136-148)
--- NOTE | 2020-02-10 07:20 | EDM.PDOC ---
ED HPI GENERAL MEDICAL PROBLEM - General Chief Complaint: Chest Pain Stated Complaint: SHORTNESS OF BREATH, CHEST PAIN Time Seen by Provider: 02/10/20 06:37 Source of Information: Reports: Patient, Old Records History Limitations: Reports: No Limitations - History of Present Illness INITIAL COMMENTS - FREE TEXT/NARRATIVE: I assumed care of this patient at [address] Kaplan. Please refer to his note for proceeding information about work-up and treatment. In brief, this is a 54-year-old man with a remote history of a renal transplant on immunosuppression with CellCept, tacrolimus, prednisone, status post BKA, type 2 diabetes mellitus, hyperlipidemia, Plavix therapy presenting with complaints of chest discomfort, shortness of breath, and chest congestion. He states that he was exposed to a patient with COVID-19 about 7 or 8 days ago. We are not sure if he actually had a Covid test before he came to the ER at any point. He presents today complaining of worsening shortness of breath. Initial vital signs are unremarkable, patient is afebrile and has normal oxygen saturations. CBC shows normal cell lines. Normal INR. Normal lactate. Metabolic panel shows mild hyponatremia with normal creatinine. Glucose 225, magnesium is 1.5. Troponin is negative. CRP is elevated at 3.70. Blood cultures were drawn. Patient was given 2 g of cefepime along with vancomycin and 1 mg of IV hydrocortisone. I reviewed the 1 view chest x-ray which appears clear, radiologist who is reading agrees. Pending work-up includes BNP, COVID-19 swab, urinalysis. Right Flank Pain Score (Numeric/FACES): 8 - Related Data Allergies Allergy/AdvReac Type Severity Reaction Status Date / Time azithromycin Allergy disoriented Verified 02/10/20 06:51 morphine Allergy Swelling Verified 02/10/20 06:51 Home Meds: Home Meds Metoprolol Succinate [Toprol XL] 25 mg PO DAILY 11/05/13 [History] Tacrolimus [Astagraf Xl] 1 mg PO BID 11/05/13 [History] atorvaSTATin [Lipitor] 10 mg PO DAILY 11/05/13 [History] predniSONE 5 mg PO DAILY 11/05/13 [History] Insulin Aspart [NovoLOG] 1 injection SUBCUT TIDAC 08/02/14 [History] Multivitamin [Multiple Vitamins] 1 tab PO DAILY 08/02/14 [History] mycophenolate mofetiL [Cellcept] 500 mg PO DAILY 08/02/14 [History] Insulin Degludec [Tresiba] 34 units SQ DAILY 09/07/18 [History] PARoxetine [Paxil] 10 mg PO DAILY 09/07/18 [History] Clopidogrel [Plavix] 75 mg PO DAILY 11/04/18 [History] Past Medical History HEENT History: Reports: Sinusitis Cardiovascular History: Reports: Hypertension, [place], Stents Respiratory History: Reports: None Gastrointestinal History: Reports: None Other Gastrointestinal History: indigestion, abdominal pain Other Genitourinary History: kidney transplant 5 YEARS AGO Musculoskeletal History: Reports: None Neurological History: Reports: None Psychiatric History: Reports: Anxiety Endocrine/Metabolic History: Reports: Diabetes, Type I Hematologic History: Reports: None 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 Other Immunologic History: Kidney Transplant Oncologic (Cancer) History: Reports: Other (See Below) Other Oncologic History: skin Dermatologic History: Reports: None - Infectious Disease History Infectious Disease History: Reports: None - Past Surgical History HEENT Surgical History: Reports: Eye Surgery Cardiovascular Surgical History: Reports: Coronary Artery Stent GI Surgical History: Reports: Appendectomy Other Male Surgeries/Procedures: kidney transplant Social & Family History - Family History Family Medical History: Noncontributory Endocrine/Metabolic: Reports: Diabetes, Type I - Caffeine Use Caffeine Use: Reports: Soda ED ROS GENERAL - Review of Systems Review Of Systems: See Below Reason Not Obtained: Refer to Dr. Kaplan's note. ED EXAM, GENERAL - Physical Exam Exam: See Below Free Text/Narrative:: Refer to Dr. Kaplan's note. Course - Vital Signs Text/Narrative:: 7:30 AM: I evaluated the patient at the bedside. He is resting comfortably. He has normal oxygen saturations and is not tachycardic. He subjectively feels short of breath but is not tachypneic and has a normal respiratory effort. He primarily complains of bilateral low back pain over the SI joints along with feeling generally unwell. No CVA tenderness and denies dysuria or unilateral flank pain. He is handling secretions without difficulty. Speaking in full sentences. He is not hypoxic. His abdomen is nontender. His neck is supple. We are awaiting a COVID-19 swab and urinalysis. I anticipate that the patient will be able to discharge home if his work-up is negative, regardless of if his COVID-19 test is positive or not. Twelve-lead ECG appears unchanged from 11/04/2018. 0823: COVID-19 PCR positive. Awaiting UA. I am calling the [facility] transplant team to get recommendations about continuing or modifying his immunosuppression regimen in the interim. Urinalysis shows glucose, trace occult blood, negative nitrites or bilirubin. I have low suspicion for bacterial sepsis at this point. Low suspicion for pulmonary embolism or congestive heart failure. There is no pleuritic chest pain or lower extremity edema. No hemoptysis. No historical symptoms to suggest pulmonary embolism. 0850: Urinalysis does not appear infected. I spoke with the renal transplant team at [facility]. I spoke with Dr. Patrick Olmstead, the on-call pulmonologist. He recommends holding the patient's CellCept, continuing tacrolimus, and increasing prednisone dosage to 10 mg daily. He states that the [place] renal transplant team will contact the patient after ED discharge to monitor him closely and to direct his return to the normal immunosuppressant medication regimen. I plan to discharge the patient home. We will have him follow-up closely with his primary care physician here locally. I relayed the recommendations from the [place] pulmonologist regarding modifying his immunosuppression medication regimen. We also discussed symptomatic treatment for COVID-19 infection. Plan: Patient is stable to discharge home with outpatient primary care clinic follow-up. Strict emergency department return precautions were provided, patient indicated understanding. All questions were answered prior to departure. Discharged in good condition. Last Recorded V/S: Last Vital Signs Temp 37.0 C 02/10/20 06:47 Pulse 88 02/10/20 09:04 Resp 20 02/10/20 07:20 BP 140/47 L 02/10/20 09:04 Pulse Ox 96 02/10/20 08:04 - Orders/Labs/Meds Orders: Active Orders 24 hr Category Date Time Status Blood Pressure Mgt: Sepsis [RC] [id number] Care 02/10/20 06:42 Active EKG 12 Lead [EKG Documentation Completion] [RC] STAT Care 02/10/20 06:41 Active B-TYPE NATRIURETIC PEPTIDE,BNP [CHEM] Stat Lab 02/10/20 06:40 Stop Req CORONAVIRUS COVID-19 PCR PHL Stat Lab 02/10/20 07:45 Received CULTURE BLOOD [BC] Stat Lab 02/10/20 06:40 Received CULTURE BLOOD [BC] Stat Lab 02/10/20 07:00 Results TACROLIMUS (FK506), BLOOD [REF] Stat Lab 02/10/20 07:00 Received Sodium Chloride 0.9% [Saline Flush] Med 02/10/20 06:42 Active 10 ml FLUSH ASDIRECTED PRN Sodium Chloride 0.9% [Saline Flush] Med 02/10/20 06:42 Active 2.5 ml FLUSH ASDIRECTED PRN VANCOmycin/Water for INJ (PEG) [VANCOmycin 1.5 GM/300 Med 02/10/20 08:00 Active ML Premix] 1.5 gm Premix Bag 1 bag IV ONETIME Blood Culture x2 Reflex Set [OM.PC] Stat Oth 02/10/20 06:42 Ordered Saline Lock Insert [OM.PC] Stat Oth 02/10/20 06:42 Ordered Medication Orders Vancomycin HCl 1.5 gm/ Premix 300 mls @ 200 mls/hr IV ONETIME ONE Stop: 02/10/20 09:29 Last Admin: 02/10/20 07:39 Dose: 200 mls/hr Documented by: JONODNIC Sodium Chloride (Saline Flush) 10 ml FLUSH ASDIRECTED PRN PRN Reason: Keep Vein Open Last Admin: 02/10/20 07:38 Dose: 10 ml Documented by: VLADIMIRIC Sodium Chloride (Saline Flush) 2.5 ml FLUSH ASDIRECTED PRN PRN Reason: Keep Vein Open Last Admin: 02/10/20 07:38 Dose: 2.5 ml Documented by: REJI Labs: Laboratory Tests 02/10/20 02/10/20 02/10/20 Range/Units 06:40 06:40 06:40 WBC 5.90 (4.0-11.0) K/uL RBC 4.51 (4.50-5.90) M/uL Hgb 13.5 (13.0-17.0) g/dL Hct 41.5 (38.0-50.0) % MCV 92.0 (80.0-98.0) fL MCH 29.9 (27.0-32.0) pg MCHC 32.5 (31.0-37.0) g/dL RDW Std Deviation 43.8 (28.0-62.0) fl RDW Coeff of Sukhdeep 13 (11.0-15.0) % Plt Count 204 (150-400) K/uL MPV 10.20 (7.40-12.00) fL Neut % (Auto) 64.4 (48.0-80.0) % Lymph % (Auto) 16.4 (16.0-40.0) % [place] % (Auto) 17.8 H (0.0-15.0) % Eos % (Auto) 1.2 (0.0-7.0) % Baso % (Auto) 0.2 (0.0-1.5) % Neut # (Auto) 3.8 (1.4-5.7) K/uL Lymph # (Auto) 1.0 (0.6-2.4) K/uL [place] # (Auto) 1.1 H (0.0-0.8) K/uL Eos # (Auto) 0.1 (0.0-0.7) K/uL Baso # (Auto) 0.0 (0.0-0.1) K/uL Nucleated RBC % 0.0 /100WBC Nucleated RBCs # 0 K/uL INR APTT (18.6-31.3) SEC VBG pH 7.37 (7.31-7.41) VBG pCO2 52 H (35-45) mmHG VBG pO2 20 L (30-40) mmHG VBG HCO3 30 (22-30) mEq/L VBG Total CO2 27 L (41-51) mmol/L VBG Base Excess 3.1 H (-3.0-3.0) Lactate (0.20-2.00) mmol/L Sodium 131 L (136-148) mmol/L Potassium 3.9 (3.5-5.1) mmol/L Chloride 95 L (98-107) mmol/L Carbon Dioxide 28.2 (21.0-32.0) mmol/L BUN 25 H (7.0-18.0) mg/dL Creatinine 1.3 (0.8-1.3) mg/dL Est Cr Clr Drug Dosing 70.79 mL/min Estimated GFR (MDRD) 58.0 ml/min Glucose 225 H (74-106) mg/dL Calcium 9.1 (8.5-10.1) mg/dL Magnesium 1.5 L (1.8-2.4) mg/dL Total Bilirubin 0.3 (0.2-1.0) mg/dL AST 17 (15-37) IU/L ALT 24 (14-63) IU/L Alkaline Phosphatase 98 (46-116) U/L Troponin I < 0.050 (0.000-0.056) ng/mL C-Reactive Protein 3.70 H (0.00-0.90) mg/dL Total Protein 7.5 (6.4-8.2) g/dL Albumin 3.6 (3.4-5.0) g/dL Globulin 3.9 (2.6-4.0) g/dL Albumin/Globulin Ratio 0.9 (0.9-1.6) Urine Color Urine Appearance Urine pH (5.0-8.0) Ur Specific [place] (1.001-1.035) Urine Protein (NEGATIVE) mg/dL Urine Glucose (UA) (NEGATIVE) mg/dL Urine Ketones (NEGATIVE) mg/dL Urine Occult Blood (NEGATIVE) Urine Nitrite (NEGATIVE) Urine Bilirubin (NEGATIVE) Urine Urobilinogen (<2.0) EU/dL Ur Leukocyte Esterase (NEGATIVE) Urine RBC (0-2/HPF) Urine WBC (0-5/HPF) Ur Epithelial Cells (NONE-FEW) Urine Bacteria (NEGATIVE) Urine Mucus (NONE-MOD) SARS CoV-2 RNA Rapid SANTANA (NEGATIVE) 02/10/20 02/10/20 02/10/20 Range/Units 06:40 06:40 07:45 WBC (4.0-11.0) K/uL RBC (4.50-5.90) M/uL Hgb (13.0-17.0) g/dL Hct (38.0-50.0) % MCV (80.0-98.0) fL MCH (27.0-32.0) pg MCHC (31.0-37.0) g/dL RDW Std Deviation (28.0-62.0) fl RDW Coeff of Sukhdeep (11.0-15.0) % Plt Count (150-400) K/uL MPV (7.40-12.00) fL Neut % (Auto) (48.0-80.0) % Lymph % (Auto) (16.0-40.0) % [place] % (Auto) (0.0-15.0) % Eos % (Auto) (0.0-7.0) % Baso % (Auto) (0.0-1.5) % Neut # (Auto) (1.4-5.7) K/uL Lymph # (Auto) (0.6-2.4) K/uL [place] # (Auto) (0.0-0.8) K/uL Eos # (Auto) (0.0-0.7) K/uL Baso # (Auto) (0.0-0.1) K/uL Nucleated RBC % /100WBC Nucleated RBCs # K/uL INR 1.03 APTT 25.5 (18.6-31.3) SEC VBG pH (7.31-7.41) VBG pCO2 (35-45) mmHG VBG pO2 (30-40) mmHG VBG HCO3 (22-30) mEq/L VBG Total CO2 (41-51) mmol/L VBG Base Excess (-3.0-3.0) Lactate 1.7 (0.20-2.00) mmol/L Sodium (136-148) mmol/L Potassium (3.5-5.1) mmol/L Chloride (98-107) mmol/L Carbon Dioxide (21.0-32.0) mmol/L BUN (7.0-18.0) mg/dL Creatinine (0.8-1.3) mg/dL Est Cr Clr Drug Dosing mL/min Estimated GFR (MDRD) ml/min Glucose (74-106) mg/dL Calcium (8.5-10.1) mg/dL Magnesium (1.8-2.4) mg/dL Total Bilirubin (0.2-1.0) mg/dL AST (15-37) IU/L ALT (14-63) IU/L Alkaline Phosphatase (46-116) U/L Troponin I (0.000-0.056) ng/mL C-Reactive Protein (0.00-0.90) mg/dL Total Protein (6.4-8.2) g/dL Albumin (3.4-5.0) g/dL Globulin (2.6-4.0) g/dL Albumin/Globulin Ratio (0.9-1.6) Urine Color Urine Appearance Urine pH (5.0-8.0) Ur Specific [place] (1.001-1.035) Urine Protein (NEGATIVE) mg/dL Urine Glucose (UA) (NEGATIVE) mg/dL Urine Ketones (NEGATIVE) mg/dL Urine Occult Blood (NEGATIVE) Urine Nitrite (NEGATIVE) Urine Bilirubin (NEGATIVE) Urine Urobilinogen (<2.0) EU/dL Ur Leukocyte Esterase (NEGATIVE) Urine RBC (0-2/HPF) Urine WBC (0-5/HPF) Ur Epithelial Cells (NONE-FEW) Urine Bacteria (NEGATIVE) Urine Mucus (NONE-MOD) SARS CoV-2 RNA Rapid SANTANA POSITIVE H (NEGATIVE) 02/10/20 Range/Units 08:11 WBC (4.0-11.0) K/uL RBC (4.50-5.90) M/uL Hgb (13.0-17.0) g/dL Hct (38.0-50.0) % MCV (80.0-98.0) fL MCH (27.0-32.0) pg MCHC (31.0-37.0) g/dL RDW Std Deviation (28.0-62.0) fl RDW Coeff of Sukhdeep (11.0-15.0) % Plt Count (150-400) K/uL MPV (7.40-12.00) fL Neut % (Auto) (48.0-80.0) % Lymph % (Auto) (16.0-40.0) % [place] % (Auto) (0.0-15.0) % Eos % (Auto) (0.0-7.0) % Baso % (Auto) (0.0-1.5) % Neut # (Auto) (1.4-5.7) K/uL Lymph # (Auto) (0.6-2.4) K/uL [place] # (Auto) (0.0-0.8) K/uL Eos # (Auto) (0.0-0.7) K/uL Baso # (Auto) (0.0-0.1) K/uL Nucleated RBC % /100WBC Nucleated RBCs # K/uL INR APTT (18.6-31.3) SEC VBG pH (7.31-7.41) VBG pCO2 (35-45) mmHG VBG pO2 (30-40) mmHG VBG HCO3 (22-30) mEq/L VBG Total CO2 (41-51) mmol/L VBG Base Excess (-3.0-3.0) Lactate (0.20-2.00) mmol/L Sodium (136-148) mmol/L Potassium (3.5-5.1) mmol/L Chloride (98-107) mmol/L Carbon Dioxide (21.0-32.0) mmol/L BUN (7.0-18.0) mg/dL Creatinine (0.8-1.3) mg/dL Est Cr Clr Drug Dosing mL/min Estimated GFR (MDRD) ml/min Glucose (74-106) mg/dL Calcium (8.5-10.1) mg/dL Magnesium (1.8-2.4) mg/dL Total Bilirubin (0.2-1.0) mg/dL AST (15-37) IU/L ALT (14-63) IU/L Alkaline Phosphatase (46-116) U/L Troponin I (0.000-0.056) ng/mL C-Reactive Protein (0.00-0.90) mg/dL Total Protein (6.4-8.2) g/dL Albumin (3.4-5.0) g/dL Globulin (2.6-4.0) g/dL Albumin/Globulin Ratio (0.9-1.6) Urine Color YELLOW Urine Appearance HAZY Urine pH 6.0 (5.0-8.0) Ur Specific [place] <= 1.005 (1.001-1.035) Urine Protein NEGATIVE (NEGATIVE) mg/dL Urine Glucose (UA) 250 H (NEGATIVE) mg/dL Urine Ketones NEGATIVE (NEGATIVE) mg/dL Urine Occult Blood TRACE-INTACT H (NEGATIVE) Urine Nitrite NEGATIVE (NEGATIVE) Urine Bilirubin NEGATIVE (NEGATIVE) Urine Urobilinogen 0.2 (<2.0) EU/dL Ur Leukocyte Esterase NEGATIVE (NEGATIVE) Urine RBC 0-2 (0-2/HPF) Urine WBC 0-1 (0-5/HPF) Ur Epithelial Cells RARE (NONE-FEW) Urine Bacteria RARE (NEGATIVE) Urine Mucus LIGHT (NONE-MOD) SARS CoV-2 RNA Rapid SANTANA (NEGATIVE) Meds: Medications Generic Name Dose Route Start Last Admin Trade Name Freq PRN Reason Stop Dose Admin Vancomycin HCl 1.5 gm/ Premix 300 mls @ 200 mls/hr 02/10/20 08:00 02/10/20 07:39 IV 02/10/20 09:29 200 mls/hr ONETIME ONE Administration Sodium Chloride 10 ml 02/10/20 06:42 02/10/20 07:38 Saline Flush FLUSH 10 ml ASDIRECTED PRN Administration Keep Vein Open Sodium Chloride 2.5 ml 02/10/20 06:42 02/10/20 07:38 Saline Flush FLUSH 2.5 ml ASDIRECTED PRN Administration Keep Vein Open Discontinued Medications Generic Name Dose Route Start Last Admin Trade Name Hareshq PRN Reason Stop Dose Admin Hydrocortisone Sodium Succinate 100 mg 02/10/20 06:43 02/10/20 07:01 Solu-Cortef IV 02/10/20 06:44 100 mg ONETIME ONE Administration Sodium Chloride 1,000 mls @ 1,000 mls/hr 02/10/20 06:42 02/10/20 06:59 Normal Saline IV 02/10/20 07:41 1,000 mls/hr BOLUS ONE Administration Protocol Cefepime HCl 2 gm/ Sodium 50 mls @ 100 mls/hr 02/10/20 06:42 02/10/20 07:52 Chloride IV 02/10/20 07:11 Not Given STAT ONE Cefepime HCl Confirm 02/10/20 06:54 02/10/20 07:08 Maxipime In D5w 1 Gm/50 Ml Administered 02/10/20 06:55 Not Given Dose 100 mls @ as directed .ROUTE .STK-MED ONE Cefepime HCl 2 gm/ Premix 50 mls @ 100 mls/hr 02/10/20 07:30 02/10/20 07:39 IV 02/10/20 07:59 100 mls/hr 02/10/20@0730 SILVIA Administration Departure - Departure Time of Disposition: 08:59 Disposition: Home, Self-Care 01 Condition: Good Clinical Impression: COVID-19 virus infection, S/P kidney transplant, Long-term use of immunosuppressant medication - Discharge Information *PRESCRIPTION DRUG MONITORING PROGRAM REVIEWED*: Not Applicable *COPY OF PRESCRIPTION DRUG MONITORING REPORT IN PATIENT CHANI: Not Applicable Instructions: COVID-19 Frequently Asked Questions, COVID-19, COVID-19: How to Protect Yourself and Others - CDC, Immunosuppression, Prevent the Spread of COVID-19 if You Are Sick - CDC Referrals: PCP,None [Primary Care Provider] - Forms: ED Department Discharge Additional Instructions: You tested positive for COVID-19 infection. The remainder of your blood work, x-rays, and urine testing look reassuring. There is no need for antibiotics at this point. I did discuss with his Salvadormat Bain on-call pulmonologist. He recommends that we have you discontinue the CellCept. It is important you continue taking her tacrolimus. Increase the dosage of your prednisone to 10 mg once daily. The [facility] nephrology transplant team will contact you over the next few days to check on you and they will direct your immunosuppressant medication regimen from here on out. I would like for you to follow-up with your primary care doctor here locally in the meantime to ensure that you are doing better. Warning signs to come back to the ER include chest pain, shortness of breath, fever, chills, or if you feel like you have any new or worsening symptoms. In the meantime you can take [id number] acetaminophen for pain, fever, or aches. You can take cpjx-vcf-czmfval cough medication such as Robitussin-DM or cough drops. Be sure you are drinking plenty of fluids. Please return the emergency department immediately if your symptoms worsen or if you feel worse. Thank you for choosing the [facility] emergency department in [place] for your medical needs today. It was a pleasure caring for you. The following information is given to patients seen in the emergency department who are being discharged. This information is to outline your options for follow-up care. We provide all patients seen in our emergency department with a follow-up referral. The need for follow-up, as well as the timing and circumstances, are variable depending upon the specifics of your emergency department visit. If you don't have a primary care physician on staff, we will provide you with a referral. We always advise you to contact your personal physician following an emergency department visit to inform them of the circumstance of the visit and for follow-up with them and/or the need for any referrals to a consulting specialist. The emergency department will also refer you to a specialist when appropriate. This referral assures that you have the opportunity for follow-up care with a specialist. All of these measure are taken in an effort to provide you with optimal care, which includes your follow-up. Under all circumstances we always encourage you to contact your private physician who remains a resource for coordinating your care. When calling for follow-up care, please make the office aware that this follow-up is from your recent emergency room visit. If for any reason you are refused follow-up, please contact the [facility] Emergency Department at and asked to speak to the emergency department charge nurse. If you do not have a primary care physician that is caring for you, you can contact these clinics below to set up an appointment to establish care: [facility] - Primary Care [address] [place] [id number] [facility] [address] [place] [id number] Sepsis Event Note (ED) - Evaluation Sepsis Screening Result: Possible Sepsis Risk - Focused Exam Vital Signs: Vital Signs Temp Pulse Resp BP Pulse Ox 02/10/20 09:04 88 140/47 L 02/10/20 08:34 89 152/60 H 02/10/20 08:04 82 136/60 96 02/10/20 07:20 81 20 129/51 L 96 02/10/20 06:47 37.0 C 99 20 122/58 L 99
[2020-02-10] MEDS ORDERED: Cefepime 2 GM in Premix Bag 1 BAG IV SCH (07:30)
[2020-02-10] MEDS ORDERED: Vancomycin/Water for INJ (PEG) 2 GM in Premix Bag 1 BAG IV SCH (08:00)
[2020-02-10 10:09] VITALS: BP 134/44; PULSE 85
== END 2020-02-10 10:09 | disposition home or self-care (01) ==
LOC: MW.ED 06:31
DX: U07.1 COVID-19 (principal); I10 Essential (primary) hypertension; I25.2 Old myocardial infarction; F41.9 Anxiety disorder, unspecified; E10.9 Type 1 diabetes mellitus without complications; Z79.899 Other long term (current) drug therapy; Z94.0 Kidney transplant status; Z88.1 Allergy status to other antibiotic agents; Z88.5 Allergy status to narcotic agent; Z79.02 Long term (current) use of antithrombotics/antiplatelets; Z95.5 Presence of coronary angioplasty implant and graft
CPT/HCPCS: 36415; 71045; 80053; 80197; 81001; 82803; 83605; 83735; 84484; 85025; 85610; 85730; 86140; 87040; 93005; 96365; 96367; 96375; 99285; J0692; J1720; J3370; J7030; U0002; 93010

== ENCOUNTER 2020-02-16 11:02 | Emergency (ER) | payer MEDICARE, OTHER ==
--- NOTE | 2020-02-16 11:14 | EDM.PDOC ---
ED HPI GENERAL MEDICAL PROBLEM - General Chief Complaint: Respiratory Problem Stated Complaint: BODY ACHES AND PAIN Time Seen by Provider: 02/16/20 11:10 Source of Information: Reports: Patient History Limitations: Reports: No Limitations - History of Present Illness INITIAL COMMENTS - FREE TEXT/NARRATIVE: Patient is [id number] male who presents today for body aches. Patient says he was diagnosed with Covid few days ago and since that time he has been having weekly fevers and aching all over. Patient says he cannot sleep because of the achiness of his whole body. Patient denies any shortness of breath cough abdominal pain or nausea vomiting Duration: Day(s): Location: Reports: Generalized Quality: Reports: Ache Severity: Mild Improves with: Reports: None - Related Data Allergies Allergy/AdvReac Type Severity Reaction Status Date / Time azithromycin Allergy disoriented Verified 02/16/20 11:20 morphine Allergy Swelling Verified 02/16/20 11:20 Home Meds: Home Meds Metoprolol Succinate [Toprol XL] 25 mg PO DAILY 11/05/13 [History] Tacrolimus [Astagraf Xl] 1 mg PO BID 11/05/13 [History] atorvaSTATin [Lipitor] 10 mg PO DAILY 11/05/13 [History] predniSONE 10 mg PO DAILY 11/05/13 [History] Insulin Aspart [NovoLOG] 1 injection SUBCUT TIDAC 08/02/14 [History] Multivitamin [Multiple Vitamins] 1 tab PO DAILY 08/02/14 [History] mycophenolate mofetiL [Cellcept] 500 mg PO DAILY 08/02/14 [History] Insulin Degludec [Tresiba] 30 units SQ DAILY 09/07/18 [History] PARoxetine [Paxil] 10 mg PO DAILY 09/07/18 [History] Clopidogrel [Plavix] 75 mg PO DAILY 11/04/18 [History] Acetaminophen/HYDROcodone [Scarbro 325-5 MG] 1 tab PO Q6H 5 Days #14 tablet 02/16/20 [Rx] Azithromycin 250 mg PO DAILY 5 Days #6 tablet 02/16/20 [Rx] Past Medical History HEENT History: Reports: Sinusitis Cardiovascular History: Reports: Hypertension, [place], Stents Respiratory History: Reports: None Gastrointestinal History: Reports: None Other Gastrointestinal History: indigestion, abdominal pain Other Genitourinary History: kidney transplant 5 YEARS AGO Musculoskeletal History: Reports: None Neurological History: Reports: None Psychiatric History: Reports: Anxiety Endocrine/Metabolic History: Reports: Diabetes, Type I Hematologic History: Reports: None 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 Other Immunologic History: Kidney Transplant Oncologic (Cancer) History: Reports: Other (See Below) Other Oncologic History: skin Dermatologic History: Reports: None - Infectious Disease History Infectious Disease History: Reports: None - Past Surgical History HEENT Surgical History: Reports: Eye Surgery Cardiovascular Surgical History: Reports: Coronary Artery Stent GI Surgical History: Reports: Appendectomy Other Male Surgeries/Procedures: kidney transplant Social & Family History - Family History Family Medical History: Noncontributory Endocrine/Metabolic: Reports: Diabetes, Type I - Caffeine Use Caffeine Use: Reports: Soda ED ROS GENERAL - Review of Systems Review Of Systems: Comprehensive ROS is negative, except as noted in HPI. Constitutional: Reports: Fever, Chills, Malaise, Diaphoresis HEENT: Reports: No Symptoms Respiratory: Reports: No Symptoms Cardiovascular: Reports: No Symptoms Endocrine: Reports: No Symptoms GI/Abdominal: Reports: No Symptoms : Reports: No Symptoms Skin: Reports: No Symptoms Neurological: Reports: No Symptoms Psychiatric: Reports: No Symptoms Hematologic/Lymphatic: Reports: No Symptoms Immunologic: Reports: No Symptoms ED EXAM, GENERAL - Physical Exam Exam: See Below Exam Limited By: No Limitations General Appearance: Alert, No Apparent Distress Respiratory/Chest: No Respiratory Distress, Lungs Clear Cardiovascular: Regular Rate, Rhythm GI/Abdominal: Normal Bowel Sounds, Soft, Non-Tender Neurological: Alert, Oriented, Normal Cognition, Normal Gait Course - Vital Signs Last Recorded V/S: Last Vital Signs Temp 99.1 F 02/16/20 11:16 Pulse 80 02/16/20 11:16 Resp 18 02/16/20 11:16 BP 104/22 L 02/16/20 11:16 Pulse Ox 95 02/16/20 11:16 - Orders/Labs/Meds Labs: Laboratory Tests 02/16/20 02/16/20 Range/Units 12:13 12:13 WBC 4.98 (4.0-11.0) K/uL RBC 4.26 L (4.50-5.90) M/uL Hgb 12.7 L (13.0-17.0) g/dL Hct 39.8 (38.0-50.0) % MCV 93.4 (80.0-98.0) fL MCH 29.8 (27.0-32.0) pg MCHC 31.9 (31.0-37.0) g/dL RDW Std Deviation 46.8 (28.0-62.0) fl RDW Coeff of Sukhdeep 14 (11.0-15.0) % Plt Count 119 L (150-400) K/uL MPV 10.20 (7.40-12.00) fL Neut % (Auto) 77.5 (48.0-80.0) % Lymph % (Auto) 15.9 L (16.0-40.0) % Rankin % (Auto) 6.6 (0.0-15.0) % Eos % (Auto) 0.0 (0.0-7.0) % Baso % (Auto) 0.0 (0.0-1.5) % Neut # (Auto) 3.9 (1.4-5.7) K/uL Lymph # (Auto) 0.8 (0.6-2.4) K/uL Rankin # (Auto) 0.3 (0.0-0.8) K/uL Eos # (Auto) 0.0 (0.0-0.7) K/uL Baso # (Auto) 0.0 (0.0-0.1) K/uL Nucleated RBC % 0.0 /100WBC Nucleated RBCs # 0 K/uL Sodium 136 (136-148) mmol/L Potassium 3.6 (3.5-5.1) mmol/L Chloride 101 (98-107) mmol/L Carbon Dioxide 28.1 (21.0-32.0) mmol/L BUN 16 (7.0-18.0) mg/dL Creatinine 1.2 (0.8-1.3) mg/dL Est Cr Clr Drug Dosing 79.04 mL/min Estimated GFR (MDRD) > 60.0 ml/min Glucose 107 H (74-106) mg/dL Calcium 8.4 L (8.5-10.1) mg/dL Total Bilirubin 0.3 (0.2-1.0) mg/dL AST 37 (15-37) IU/L ALT 28 (14-63) IU/L Alkaline Phosphatase 77 (46-116) U/L Total Protein 6.5 (6.4-8.2) g/dL Albumin 3.0 L (3.4-5.0) g/dL Globulin 3.5 (2.6-4.0) g/dL Albumin/Globulin Ratio 0.9 (0.9-1.6) Lipase 47 L (73-393) U/L Meds: Medications Discontinued Medications Generic Name Dose Route Start Last Admin Trade Name Freq PRN Reason Stop Dose Admin Hydrocodone Bitart/Acetaminophen 1 tab 02/16/20 11:34 02/16/20 11:56 Scarbro 325-5 Mg PO 02/16/20 11:35 1 tab ONETIME ONE Administration Departure - Departure Time of Disposition: 13:00 Disposition: Home, Self-Care 01 Clinical Impression: COVID-19 - Discharge Information Prescriptions: Azithromycin 250 mg PO DAILY 5 Days #6 tablet Acetaminophen/HYDROcodone [Scarbro 325-5 MG] 1 tab PO Q6H 5 Days #14 tablet Instructions: Upper Respiratory Infection, Adult, [id number] Referrals: PCP,None [Primary Care Provider] - Forms: ED Department Discharge Additional Instructions: The following information is given to patients seen in the emergency department who are being discharged to home. This information is to outline your options for follow-up care. We provide all patients seen in our emergency department with a follow-up referral. The need for follow-up, as well as the timing and circumstances, are variable depending upon the specifics of your emergency department visit. If you don't have a primary care physician on staff, we will provide you with a referral. We always advise you to contact your personal physician following an emergency department visit to inform them of the circumstance of the visit and for follow-up with them and/or the need for any referrals to a consulting specialist. The emergency department will also refer you to a specialist when appropriate. This referral assures that you have the opportunity for follow-up care with a specialist. All of these measure are taken in an effort to provide you with optimal care, which includes your follow-up. Under all circumstances we always encourage you to contact your private physician who remains a resource for coordinating your care. When calling for follow-up care, please make the office aware that this follow-up is from your recent emergency room visit. If for any reason you are refused follow-up, please contact the [facility] Emergency Department at and asked to speak to the emergency department charge nurse. Please take your medication as prescribed you have any increased shortness of breath fevers chills please return to the ED. Sepsis Event Note (ED) - Focused Exam Vital Signs: Vital Signs Temp Pulse Resp BP Pulse Ox 02/16/20 11:16 99.1 F 80 18 104/22 L 95 - Assessment/Plan Plan: Patient is a 17-year-old male who presents as positive Covid comes in today for body ache. Patient has no respiratory symptoms. Will obtain labs provide pain control and reassess patient. Patient pain is improved oxygen level remains greater than 97% on room air. Patient feels better will be sent home given strict return precautions.
[2020-02-16] MEDS ORDERED: Acetaminophen/HYDROcodone 325-5 MG Tab PO ONE (11:34)
--- NOTE | 2020-02-16 12:14 | CR ---
INDICATION: Weakness and fatigue recent arthur virus infection diagnosis TECHNIQUE: Single AP chest COMPARISON: Single view chest February 10, 2020 FINDINGS: There is developing patchy ground-glass opacity in the right upper lobe with increased interstitial thickening from comparison exam. There is no pleural effusion or pneumothorax. The cardiac silhouette is stable. The bony thorax is grossly intact IMPRESSION: Increased interstitial thickening with developing ground-glass opacities in the right upper lobe consistent with arthur virus infection. Dictated by John Jones MD @ Feb 16 2020 12:10PM Signed by Dr. John Jones @ Feb 16 2020 12:11PM
[2020-02-16 12:49] LABS: BLOOD UREA NITROGEN,BUN 16 mg/dL (7.0-18.0); CARBON DIOXIDE,CO2 28.1 mmol/L (21.0-32.0); CHLORIDE,CL 101 mmol/L (98-107); GLUCOSE RANDOM 107 mg/dL (74-106); LIPASE 47 U/L (73-393); POTASSIUM,K 3.6 mmol/L (3.5-5.1); SODIUM,NA 136 mmol/L (136-148)
[2020-02-16 14:35] VITALS: BP 101/39; PULSE 72
== END 2020-02-16 13:21 | disposition home or self-care (01) ==
LOC: MW.ED 11:02
DX: U07.1 COVID-19 (principal); I10 Essential (primary) hypertension; I25.2 Old myocardial infarction; E10.9 Type 1 diabetes mellitus without complications; F41.9 Anxiety disorder, unspecified; Z79.02 Long term (current) use of antithrombotics/antiplatelets; Z79.899 Other long term (current) drug therapy; Z95.5 Presence of coronary angioplasty implant and graft
CPT/HCPCS: 36415; 71045; 80053; 83690; 85025; 99283; A9270

== ENCOUNTER 2020-02-22 17:00 | Emergency (ER) | payer MEDICARE ==
[2020-02-22] MEDS ORDERED: Ondansetron 4 MG/2 ML SDV IVPUSH ONE (17:32)
[2020-02-22] MEDS ORDERED: Sodium Chloride 0.9% 1,000 ML IV ONE (17:32)
[2020-02-22] MEDS ORDERED: HYDROmorphone 1 MG/ML Syringe IVPUSH ONE (17:35)
--- NOTE | 2020-02-22 17:43 | EDM.PDOC ---
ED HPI GENERAL MEDICAL PROBLEM - General Chief Complaint: General Stated Complaint: covid-19 positive Time Seen by Provider: 02/22/20 17:02 Source of Information: Reports: Patient History Limitations: Reports: No Limitations - History of Present Illness INITIAL COMMENTS - FREE TEXT/NARRATIVE: Patient presents because he is feeling "crummy". He was diagnosed with Covid 19 on approximately February 09. He was seen here in the emergency room on February 15 for body aches. Lab work and vital signs at that time were unremarkable and he was discharged with conservative management. He did have ground glass opacities in his right upper lobe consistent with COVID-19 infiltrates. Now today the patient states that he has not been eating or drinking because he has felt crummy and has been nauseated. He cannot sleep due to body aches. He is "miserable" due to headache and nausea. He also has had some diarrhea. No sore throat or fever. Has a fianc at home who has Covid as well. He has a long history of medical problems including [id number] diabetes mellitus, renal transplant, left the [id number] amputation and CAD. States today that he has been taking his usual medications. Generalized Pain Score (Numeric/FACES): 4 - Related Data Allergies Allergy/AdvReac Type Severity Reaction Status Date / Time azithromycin Allergy disoriented Verified 02/22/20 17:06 morphine Allergy Swelling Verified 02/22/20 17:06 Home Meds: Home Meds Metoprolol Succinate [Toprol XL] 25 mg PO DAILY 11/05/13 [History] Tacrolimus [Astagraf Xl] 1 mg PO BID 11/05/13 [History] atorvaSTATin [Lipitor] 10 mg PO DAILY 11/05/13 [History] predniSONE 10 mg PO DAILY 11/05/13 [History] Insulin Aspart [NovoLOG] 1 injection SUBCUT TIDAC 08/02/14 [History] Multivitamin [Multiple Vitamins] 1 tab PO DAILY 08/02/14 [History] mycophenolate mofetiL [Cellcept] 500 mg PO DAILY 08/02/14 [History] Insulin Degludec [Tresiba] 30 units SQ DAILY 09/07/18 [History] PARoxetine [Paxil] 10 mg PO DAILY 09/07/18 [History] Clopidogrel [Plavix] 75 mg PO DAILY 11/04/18 [History] Acetaminophen/HYDROcodone [Pearcy 325-5 MG] 1 tab PO Q6H 5 Days #14 tablet 02/16/20 [Rx] Azithromycin 250 mg PO DAILY 5 Days #6 tablet 02/16/20 [Rx] Ondansetron [Zofran ODT] 1 tab PO Q6H PRN #10 tab.dis 02/22/20 [Rx] traMADol HCl [Tramadol HCl] 50 mg PO Q6H PRN #20 tablet 02/22/20 [Rx] Past Medical History HEENT History: Reports: Sinusitis Cardiovascular History: Reports: Hypertension, [place], Stents Respiratory History: Reports: None Gastrointestinal History: Reports: None Other Gastrointestinal History: indigestion, abdominal pain Other Genitourinary History: kidney transplant 5 YEARS AGO Musculoskeletal History: Reports: None Neurological History: Reports: None Psychiatric History: Reports: Anxiety Endocrine/Metabolic History: Reports: Diabetes, Type I Hematologic History: Reports: None 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 Other Immunologic History: Kidney Transplant Oncologic (Cancer) History: Reports: Other (See Below) Other Oncologic History: skin Dermatologic History: Reports: None - Infectious Disease History Infectious Disease History: Reports: Chicken Pox - Past Surgical History HEENT Surgical History: Reports: Eye Surgery Cardiovascular Surgical History: Reports: Coronary Artery Stent GI Surgical History: Reports: Appendectomy Other Male Surgeries/Procedures: kidney transplant Social & Family History - Family History Family Medical History: Noncontributory Endocrine/Metabolic: Reports: Diabetes, Type I - Tobacco Use Tobacco Use Status *Q: Never Tobacco User - Caffeine Use Caffeine Use: Reports: Coffee - Recreational Drug Use Recreational Drug Use: No ED ROS GENERAL - Review of Systems Review Of Systems: Comprehensive ROS is negative, except as noted in HPI. ED EXAM, GENERAL - Physical Exam Exam: See Below Exam Limited By: No Limitations General Appearance: Alert, No Apparent Distress Ears: Normal External Exam, Normal TMs Nose: Normal Inspection Throat/Mouth: Normal Inspection, Normal Oropharynx Head: Atraumatic, Normocephalic Neck: Normal Inspection Respiratory/Chest: No Respiratory Distress, Lungs Clear, Normal Breath Sounds Cardiovascular: Normal Peripheral Pulses, Regular Rate, Rhythm GI/Abdominal: Soft Extremities: Normal Inspection Neurological: Alert, Oriented, Normal Cognition Psychiatric: Normal Affect, Normal Mood Skin Exam: Warm, Dry, Intact, Normal Color, No Rash Lymphatic: No Adenopathy Course - Vital Signs Last Recorded V/S: Last Vital Signs Temp 36.2 C 02/22/20 17:07 Pulse 83 02/22/20 18:58 Resp 18 02/22/20 18:58 BP 140/33 L 02/22/20 18:58 Pulse Ox 93 L 02/22/20 18:58 - Orders/Labs/Meds Labs: Laboratory Tests 02/22/20 02/22/20 Range/Units 17:47 17:47 WBC 6.20 (4.0-11.0) K/uL RBC 4.42 L (4.50-5.90) M/uL Hgb 13.2 (13.0-17.0) g/dL Hct 40.6 (38.0-50.0) % MCV 91.9 (80.0-98.0) fL MCH 29.9 (27.0-32.0) pg MCHC 32.5 (31.0-37.0) g/dL RDW Std Deviation 46.5 (28.0-62.0) fl RDW Coeff of Sukhdeep 14 (11.0-15.0) % Plt Count 223 (150-400) K/uL MPV 10.20 (7.40-12.00) fL Neut % (Auto) 81.6 H (48.0-80.0) % Lymph % (Auto) 9.4 L (16.0-40.0) % Sterling % (Auto) 8.5 (0.0-15.0) % Eos % (Auto) 0.3 (0.0-7.0) % Baso % (Auto) 0.2 (0.0-1.5) % Neut # (Auto) 5.1 (1.4-5.7) K/uL Lymph # (Auto) 0.6 (0.6-2.4) K/uL Sterling # (Auto) 0.5 (0.0-0.8) K/uL Eos # (Auto) 0.0 (0.0-0.7) K/uL Baso # (Auto) 0.0 (0.0-0.1) K/uL Nucleated RBC % 0.0 /100WBC Nucleated RBCs # 0 K/uL Sodium 137 (136-148) mmol/L Potassium 3.9 (3.5-5.1) mmol/L Chloride 99 (98-107) mmol/L Carbon Dioxide 24.5 (21.0-32.0) mmol/L BUN 19 H (7.0-18.0) mg/dL Creatinine 1.0 (0.8-1.3) mg/dL Est Cr Clr Drug Dosing 94.84 mL/min Estimated GFR (MDRD) > 60.0 ml/min Glucose 120 H (74-106) mg/dL Calcium 8.5 (8.5-10.1) mg/dL Total Bilirubin 0.6 (0.2-1.0) mg/dL AST 31 (15-37) IU/L ALT 25 (14-63) IU/L Alkaline Phosphatase 99 (46-116) U/L Total Protein 6.9 (6.4-8.2) g/dL Albumin 2.6 L (3.4-5.0) g/dL Globulin 4.3 H (2.6-4.0) g/dL Albumin/Globulin Ratio 0.6 L (0.9-1.6) Meds: Medications Discontinued Medications Generic Name Dose Route Start Last Admin Trade Name Freq PRN Reason Stop Dose Admin Hydromorphone HCl 1 mg 02/22/20 17:35 02/22/20 17:49 Dilaudid IVPUSH 02/22/20 17:36 1 mg ONETIME ONE Administration Sodium Chloride 1,000 mls @ 999 mls/hr 02/22/20 17:32 02/22/20 17:52 Normal Saline IV 02/22/20 18:32 999 mls/hr .Bolus ONE Administration Ondansetron HCl 4 mg 02/22/20 17:32 02/22/20 17:51 Zofran IVPUSH 02/22/20 17:33 4 mg ONETIME ONE Administration - Re-Assessments/Exams Free Text/Narrative Re-Assessment/Exam: 02/22/20 19:10 Body aches are improved with medication. O2 sats in the ER 92 to 95%. No dyspnea. States he just wants something so he can sleep at night and so that he can keep drinking fluids without nausea. Departure - Departure Time of Disposition: 19:12 Disposition: Home, Self-Care 01 Condition: Good Clinical Impression: COVID-19 - Discharge Information Referrals: PCP,None [Primary Care Provider] - Forms: ED Department Discharge Additional Instructions: The following information is given to patients seen in the emergency department who are being discharged to home. This information is to outline your options for follow-up care. We provide all patients seen in our emergency department with a follow-up referral. The need for follow-up, as well as the timing and circumstances, are variable depending upon the specifics of your emergency department visit. If you don't have a primary care physician on staff, we will provide you with a referral. We always advise you to contact your personal physician following an emergency department visit to inform them of the circumstance of the visit and for follow-up with them and/or the need for any referrals to a consulting specialist. The emergency department will also refer you to a specialist when appropriate. This referral assures that you have the opportunity for follow-up care with a specialist. All of these measure are taken in an effort to provide you with optimal care, which includes your follow-up. Under all circumstances we always encourage you to contact your private physician who remains a resource for coordinating your care. When calling for follow-up care, please make the office aware that this follow-up is from your recent emergency room visit. If for any reason you are refused follow-up, please contact the [facility] Emergency Department at and asked to speak to the emergency department charge nurse [address] [address] 1. Follow-up with your primary care provider. 2. Zofran (ondansetron) 6 hours as needed for nausea 3. Drink plenty of fluids and rest 4. Tramadol every 8 hours as needed for body aches. Will make you sleepy. 5. Signs to return to ER include; breathing problems, not keeping down oral fluids Sepsis Event Note (ED) - Evaluation Sepsis Screening Result: No Definite Risk - Focused Exam Vital Signs: Vital Signs Temp Pulse Resp BP Pulse Ox 02/22/20 18:58 83 18 140/33 L 93 L 02/22/20 18:37 89 18 146/38 H 95 02/22/20 17:57 95 02/22/20 17:33 87 18 127/67 96 02/22/20 17:07 36.2 C 97 20 / 89 L
[2020-02-22 18:30] LABS: BLOOD UREA NITROGEN,BUN 19 mg/dL (7.0-18.0); CARBON DIOXIDE,CO2 24.5 mmol/L (21.0-32.0); CHLORIDE,CL 99 mmol/L (98-107); GLUCOSE RANDOM 120 mg/dL (74-106); POTASSIUM,K 3.9 mmol/L (3.5-5.1); SODIUM,NA 137 mmol/L (136-148)
--- NOTE | 2020-02-22 18:42 | CR ---
INDICATION: Maynard virus 19 TECHNIQUE: Chest 1 views COMPARISON: Single view chest February 16, 2020 FINDINGS: There are increasing patchy airspace opacities throughout the bilateral hemithoraces commensurate with worsening multifocal infiltrates. There is persistent hyperinflation and chronic interstitial change. The bony thorax is grossly intact. There is no pneumothorax. IMPRESSION: Overall worsening patchy ground-glass and consolidation throughout the bilateral hemithoraces commensurate with evolution of viral pneumonia. Dictated by John Jones MD @ Feb 22 2020 6:38PM Signed by Dr. John Jones @ Feb 22 2020 6:40PM
[2020-02-22 19:57] VITALS: BP 119/50; PULSE 78
== END 2020-02-22 19:56 | disposition home or self-care (01) ==
LOC: MW.ED 17:00
DX: U07.1 COVID-19 (principal); I10 Essential (primary) hypertension; I25.2 Old myocardial infarction; E10.9 Type 1 diabetes mellitus without complications; F41.9 Anxiety disorder, unspecified; Z88.5 Allergy status to narcotic agent; Z88.1 Allergy status to other antibiotic agents; Z95.5 Presence of coronary angioplasty implant and graft; Z90.49 Acquired absence of other specified parts of digestive tract; Z79.02 Long term (current) use of antithrombotics/antiplatelets; Z79.899 Other long term (current) drug therapy
CPT/HCPCS: 36415; 71045; 80053; 85025; 96374; 96375; 99283; J1170; J2405; J7030; 99282

== ENCOUNTER 2020-07-14 18:53 | Emergency (ER) | payer MEDICARE ==
[2020-07-14] MEDS ORDERED: Acetaminophen/oxyCODONE 325-5 MG Tab PO ONE (19:59)
--- NOTE | 2020-07-14 21:08 | CR ---
INDICATION: Left rib pain after injury. COMPARISON: Chest radiograph from 02/22/2020 FINDINGS: The left ribs were examined with AP, shallow oblique and AP and shallow oblique inferior spot views along with a PA view of the chest for a total of 5 views. During the interval, the moderate bilateral interstitial infiltrates distributed throughout the mid and lower lungs have resolved. The lungs are now clear. There is no sign of any pleural effusion. Heart and mediastinum are normal in appearance. There is no sign of abnormality of the ribs, with no sign of fracture or destructive lesion. There is no sign of pneumothorax, pulmonary contusion, pleural hematoma, or pleural effusion. IMPRESSION: Normal left ribs and PA chest. Complete resolution of previously seen multifocal bilateral interstitial infiltrates consistent with resolution of COVID-19 pneumonia. Dictated by Pedro Carolina MD @ Jul 14 2020 8:58PM Signed by Dr. Pedro Carolina @ Jul 14 2020 9:06PM
--- NOTE | 2020-07-14 21:18 | EDM.PDOC ---
ED HPI GENERAL MEDICAL PROBLEM - General Chief Complaint: General Stated Complaint: MAJOR RIB PAIN Time Seen by Provider: 07/14/20 18:54 Source of Information: Reports: Patient History Limitations: Reports: No Limitations - History of Present Illness INITIAL COMMENTS - FREE TEXT/NARRATIVE: HISTORY AND PHYSICAL: History of present illness: Patient is a 54-year-old male who presents to the ED today with concern of left rib injury that occurred twice over the last 2 days. Patient states that he was working on a vehicle yesterday and was leaning against a motor. Patient states he felt a popping sensation in his left posterior rib. Patient states that he did have some discomfort after this incident but then today was walking his dog. Patient states he has a large 100 pound dog who started chasing after another dog and pulled on the leash. Patient states he tripped and landed again on the same area that he injured the day prior and states that he has had more severe rib pain is concerned that he broke it. Patient states he has had a prior rib fracture in the past on the right and states that his symptoms today are similar. Patient denies any head injury or loss of consciousness. Patient denies any other symptoms or concerns. Patient denies fever, chills, chest pain, shortness of breath, or cough. Denies headache, neck stiff ness, change in vision, syncope, or near syncope. Denies nausea, vomiting, abdominal pain, diarrhea, constipation, or dysuria. Has not noted any blood in urine or stool. Patient has been eating and drinking appropriately. Review of systems: As per history of present illness and below otherwise all systems reviewed and negative. Past medical history: As per history of present illness and as reviewed below otherwise noncontri butory. Surgical history: As per history of present illness and as reviewed below otherwise noncontributory. Social history: See social history for further information Family history: As per history of present illness and as reviewed below otherwise noncontributory. Physical exam: General: Patient is alert, oriented, and in no acute distress. Patient sitting comfortably on exam table. Vital stable and reviewed by me HEENT: Atraumatic, normocephalic, pupils equal and reactive bilaterally, negative for conjunctival pallor or scleral icterus, mucous membranes moist, TMs normal bilaterally, throat clear, neck supple, nontender, trachea midline. No drooling or trismus noted. No meningeal signs. No hot potato voice noted. Lungs/chest: Moderate to severe pain to palpation of the left sided ribs in the flank area of ribs #8-10 without flail sign. Otherwise, Clear to auscultation, breath sounds equal bilaterally, chest nontender. Heart: S1S2, regular rate and rhythm without overt murmur Abdomen: Soft, nondistended, nontender. Negative for masses or hepatosplenomegaly. Negative for costovertebral tenderness. Pelvis: Stable nontender. Genitourinary: Deferred. Rectal: Deferred. Skin: Intact, warm, dry. No lesions or rashes noted. Extremities: Atraumatic, negative for cords or calf pain. Neurovascular unremarkable. Neuro: Awake, alert, oriented. Cranial nerves II through XII unremarkable. Cerebellum unremarkable. Motor and sensory unremarkable throughout. Exam nonfocal. Notes: Patient has a history of renal transplant and is not able to take NSAID medication for pain. We will give patient enough Onamia as this helped his pain in the ED for the next 2 days. Patient provided with an incentive spirometer and given close instructions on how to use this. Signs and symptoms that were prompt return to the ED thoroughly discussed with patient. Discussed importance for follow-up with a primary care provider. Voices understanding and is agreeable to plan of care. Denies any further questions or concerns at this time. Diagnostics: Rib w chest XR Therapeutics: Onamia Prescription: Onamia (#6) Impression: Left rib injury Plan: 1. Rest, ice, elevate the affected area. You can apply ice 15 minutes on, 15 minutes off. Use incentive spirometer 4 times daily until symptoms are improving as discussed. 2. Tylenol and/or Ibuprofen as directed for pain management or discomfort. 3. Follow up with the primary care provider as discussed. Return to the ED as needed and as discussed. Definitive disposition and diagnosis as appropriate pending reevaluation and review of above. Left Chest Pain Score (Numeric/FACES): 10 - Related Data Allergies Allergy/AdvReac Type Severity Reaction Status Date / Time azithromycin Allergy disoriented Verified 07/14/20 19:29 morphine Allergy Swelling Verified 07/14/20 19:29 Home Meds: Home Meds Metoprolol Succinate [Toprol XL] 25 mg PO DAILY 11/05/13 [History] Tacrolimus [Astagraf Xl] 1 mg PO BID 11/05/13 [History] atorvaSTATin [Lipitor] 10 mg PO DAILY 11/05/13 [History] predniSONE 10 mg PO DAILY 11/05/13 [History] Insulin Aspart [NovoLOG] 1 injection SUBCUT TIDAC 08/02/14 [History] Multivitamin [Multiple Vitamins] 1 tab PO DAILY 08/02/14 [History] mycophenolate mofetiL [Cellcept] 500 mg PO DAILY 08/02/14 [History] Insulin Degludec [Tresiba] 30 units SQ DAILY 09/07/18 [History] PARoxetine [Paxil] 10 mg PO DAILY 09/07/18 [History] Clopidogrel [Plavix] 75 mg PO DAILY 11/04/18 [History] Acetaminophen/HYDROcodone [Onamia 325-5 MG] 1 tab PO Q6H 5 Days #14 tablet 02/16/20 [Rx] Azithromycin 250 mg PO DAILY 5 Days #6 tablet 02/16/20 [Rx] Ondansetron [Zofran ODT] 1 tab PO Q6H PRN #10 tab.dis 02/22/20 [Rx] traMADol HCl [Tramadol HCl] 50 mg PO Q6H PRN #20 tablet 02/22/20 [Rx] Acetaminophen/oxyCODONE [Percocet 325-5 MG] 1 each PO Q6H PRN #6 tab 07/14/20 [Rx] Past Medical History HEENT History: Reports: Sinusitis Cardiovascular History: Reports: Hypertension, [place], Stents Respiratory History: Reports: None Gastrointestinal History: Reports: None Other Gastrointestinal History: indigestion, abdominal pain Other Genitourinary History: kidney transplant 5 YEARS AGO Musculoskeletal History: Reports: None Neurological History: Reports: None Psychiatric History: Reports: Anxiety Endocrine/Metabolic History: Reports: Diabetes, Type I Hematologic History: Reports: None 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 Other Immunologic History: Kidney Transplant Oncologic (Cancer) History: Reports: Other (See Below) Other Oncologic History: skin Dermatologic History: Reports: None - Infectious Disease History Infectious Disease History: Reports: Chicken Pox - Past Surgical History HEENT Surgical History: Reports: Eye Surgery Cardiovascular Surgical History: Reports: Coronary Artery Stent GI Surgical History: Reports: Appendectomy Other Male Surgeries/Procedures: kidney transplant Musculoskeletal Surgical History: Reports: Other (See Below) Other Musculoskeletal Surgeries/Procedures:: Below Knee Amputation L leg Social & Family History - Family History Family Medical History: No Pertinent Family History Endocrine/Metabolic: Reports: Diabetes, Type I - Tobacco Use Tobacco Use Status *Q: Current Every Day Tobacco User Years of Tobacco use: 9 Packs/Tins Daily: 0.3 - Caffeine Use Caffeine Use: Reports: Coffee - Recreational Drug Use Recreational Drug Use: No ED ROS GENERAL - Review of Systems Review Of Systems: Comprehensive ROS is negative, except as noted in HPI. ED EXAM, GENERAL - Physical Exam Exam: See Below (see dictation) Course - Vital Signs Last Recorded V/S: Last Vital Signs Temp 96.7 F L 07/14/20 19:30 Pulse 80 07/14/20 21:44 Resp 18 07/14/20 21:44 BP 146/80 H 07/14/20 21:44 Pulse Ox 96 07/14/20 21:44 - Orders/Labs/Meds Orders: Active Orders 24 hr Category Date Time Status DME for Discharge [COMM] Stat Oth 07/14/20 21:17 Ordered Meds: Medications Discontinued Medications Generic Name Dose Route Start Last Admin Trade Name Freq PRN Reason Stop Dose Admin Oxycodone/Acetaminophen 1 tab 07/14/20 19:59 07/14/20 20:27 Acetaminophen/Oxycodone 325-5 Mg Tab PO 07/14/20 20:00 1 tab ONETIME ONE Administration Departure - Departure Time of Disposition: 21:17 Disposition: Home, Self-Care 01 Clinical Impression: Rib injury - Discharge Information Prescriptions: Acetaminophen/oxyCODONE [Percocet 325-5 MG] 1 each PO Q6H PRN #6 tab PRN Reason: Pain (Severe 7-10) Instructions: How to Use an Incentive Spirometer Referrals: PCP,None [Primary Care Provider] - Forms: ED Department Discharge Additional Instructions: The following information is given to patients seen in the emergency department who are being discharged to home. This information is to outline your options for follow-up care. We provide all patients seen in our emergency department with a follow-up referral. The need for follow-up, as well as the timing and circumstances, are variable depending upon the specifics of your emergency department visit. If you don't have a primary care physician on staff, we will provide you with a referral. We always advise you to contact your personal physician following an emergency department visit to inform them of the circumstance of the visit and for follow-up with them and/or the need for any referrals to a consulting specialist. The emergency department will also refer you to a specialist when appropriate. This referral assures that you have the opportunity for follow-up care with a specialist. All of these measure are taken in an effort to provide you with optimal care, which includes your follow-up. Under all circumstances we always encourage you to contact your private physician who remains a resource for coordinating your care. When calling for follow-up care, please make the office aware that this follow-up is from your recent emergency room visit. If for any reason you are refused follow-up, please contact the [facility] Emergency Department at and asked to speak to the emergency department charge nurse. [facility] [address] [place] [address] [place] [address] 1. Rest, ice, elevate the affected area. You can apply ice 15 minutes on, 15 minutes off. Use incentive spirometer 4 times daily until symptoms are improving as discussed. 2. Tylenol and/or Ibuprofen as directed for pain management or discomfort. 3. Follow up with the primary care provider as discussed. Return to the ED as needed and as discussed. Sepsis Event Note (ED) - Evaluation Sepsis Screening Result: No Definite Risk - Focused Exam Vital Signs: Vital Signs Temp Pulse Resp BP Pulse Ox 07/14/20 21:44 80 18 146/80 H 96 07/14/20 19:30 96.7 F L 84 20 135/41 L 98 - My Orders Last 24 Hours: My Active Orders 07/14/20 21:17 DME for Discharge [COMM] Stat - Assessment/Plan Last 24 Hours: My Active Orders 07/14/20 21:17 DME for Discharge [COMM] Stat
[2020-07-14 21:44] VITALS: BP 146/80; PULSE 80
== END 2020-07-14 21:42 | disposition home or self-care (01) ==
LOC: MW.ED 18:53
DX: S29.9XXA Unspecified injury of thorax, initial encounter (principal); I10 Essential (primary) hypertension; I25.2 Old myocardial infarction; E10.9 Type 1 diabetes mellitus without complications; Z72.0 Tobacco use; Z95.5 Presence of coronary angioplasty implant and graft; Z88.1 Allergy status to other antibiotic agents; Z88.5 Allergy status to narcotic agent; Z79.02 Long term (current) use of antithrombotics/antiplatelets; Z79.899 Other long term (current) drug therapy; W18.40XA Slipping, tripping and stumbling without falling, unspecified, initial encounter
CPT/HCPCS: 71101; 99283; A9270

== ENCOUNTER 2020-09-23 01:08 | Emergency (ER) | payer MEDICARE ==
[2020-09-23 01:32] VITALS: PULSE 76
[2020-09-23] MEDS ORDERED: Sodium Chloride 0.9% 2.5 ML Syringe FLUSH PRN (01:49)
[2020-09-23] MEDS ORDERED: Sodium Chloride 0.9% 10 ML Syringe FLUSH PRN (01:49)
[2020-09-23] MEDS ORDERED: cefTRIAXone 1 GM in Premix Bag 1 BAG IV ONE (01:49)
--- NOTE | 2020-09-23 01:53 | EDM.PDOC ---
ED HPI GENERAL MEDICAL PROBLEM - General Chief Complaint: Headache Stated Complaint: HEADACHE, SINUS PAIN, DIZZY Time Seen by Provider: 09/23/20 01:14 - History of Present Illness INITIAL COMMENTS - FREE TEXT/NARRATIVE: History of present illness: [] The patient has trouble with his sinuses congested and feeling dizzy somewhat since a month or more ago when he had Covid. He is a renal transplant patient for 10 years and has been stable. Surgery was done in [place]. Today he says he got hot and he had increasing pain that happened over the last 2 days the sinuses as well as fullness in his ears and some phlegm in his throat. He has a lot of postnasal drip. He got excessively dizzy today and said he felt like he had come in because he might be dehydrated. He is making a little less urine than usual. Review of systems: As per history of present illness and below otherwise all systems reviewed and negative. Past medical history: As per history of present illness and as reviewed below otherwise noncontributor y. Surgical history: As per history of present illness and as reviewed below otherwise noncontributory. Social history: No reported history of drug or alcohol abuse. Family history: As per history of present illness and as reviewed below otherwise noncontributory. Physical exam: Constitutional - well developed, well-nourished and in no acute distress HEENT -oropharynx has purulence along the posterior soft tissues. Voice is normal no trismus. Sinuses are tender. TMs dull. Normocephalic, no evidence of trauma - external nose and mouth normal - no mass in neck and no JVD - mucosae dry EYES - full EOM, PERRL, no icterus - no evidence of inflammation, injection, or drainage Respiratory - no respiratory distress, equal bilateral expansion, lungs clear to auscultation and no abnormal lung sounds Cardiovascular - Regular Rhythm with S1 and S2 appreciated and no murmur, gallop or rub. GI - abdomen soft without distension or organomegaly - normal bowel sounds - no guard or rebound Musculoskeletal no gross deformity of long bones or joints - no tenderness, swelling or edema Neurologic - Alert and oriented times four - CN II-XII grossly intact - motor sensory and coordination symmetrically normal Psychiatric - appropriate mood and affect with normal thought content Hematologic - No petechiae or purpura - mucosa appropriate color and sclera not pale - normal nail bed color and refill Integument - no rash or evidence of trauma - normal turgor Diagnostics: [] Therapeutics: [] Impression: [] Plan: [] Definitive disposition and diagnosis as appropriate pending reevaluation and review of above. Anterior Face/Facial Pain Score (Numeric/FACES): 6 - Related Data Allergies Allergy/AdvReac Type Severity Reaction Status Date / Time azithromycin Allergy disoriented Verified 09/23/20 01:21 morphine Allergy Swelling Verified 09/23/20 01:21 Home Meds: Home Meds Metoprolol Succinate [Toprol XL] 25 mg PO DAILY 11/05/13 [History] Tacrolimus [Astagraf Xl] 1 mg PO BID 11/05/13 [History] atorvaSTATin [Lipitor] 10 mg PO DAILY 11/05/13 [History] predniSONE 10 mg PO DAILY 11/05/13 [History] Insulin Aspart [NovoLOG] 1 injection SUBCUT TIDAC 08/02/14 [History] Multivitamin [Multiple Vitamins] 1 tab PO DAILY 08/02/14 [History] mycophenolate mofetiL [Cellcept] 500 mg PO DAILY 08/02/14 [History] Insulin Degludec [Tresiba] 30 units SQ DAILY 09/07/18 [History] PARoxetine [Paxil] 10 mg PO DAILY 09/07/18 [History] Clopidogrel [Plavix] 75 mg PO DAILY 11/04/18 [History] Acetaminophen/HYDROcodone [[place] 325-5 MG] 1 tab PO Q6H 5 Days #14 tablet 02/16/20 [Rx] Azithromycin 250 mg PO DAILY 5 Days #6 tablet 02/16/20 [Rx] Ondansetron [Zofran ODT] 1 tab PO Q6H PRN #10 tab.dis 02/22/20 [Rx] traMADol HCl [Tramadol HCl] 50 mg PO Q6H PRN #20 tablet 02/22/20 [Rx] Acetaminophen/oxyCODONE [Percocet 325-5 MG] 1 each PO Q6H PRN #6 tab 07/14/20 [Rx] Amoxicillin/Clavulanate K [Augmentin 875-125 MG] 1 tab PO BID #20 tablet 09/23/20 [Rx] Past Medical History HEENT History: Reports: Sinusitis Cardiovascular History: Reports: Hypertension, [place], Stents Respiratory History: Reports: None Gastrointestinal History: Reports: None Other Gastrointestinal History: indigestion, abdominal pain Other Genitourinary History: kidney transplant 5 YEARS AGO Musculoskeletal History: Reports: None Neurological History: Reports: None Psychiatric History: Reports: Anxiety Endocrine/Metabolic History: Reports: Diabetes, Type I Hematologic History: Reports: None 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 Other Immunologic History: Kidney Transplant Oncologic (Cancer) History: Reports: Other (See Below) Other Oncologic History: skin Dermatologic History: Reports: None - Infectious Disease History Infectious Disease History: Reports: Chicken Pox - Past Surgical History HEENT Surgical History: Reports: Eye Surgery Cardiovascular Surgical History: Reports: Coronary Artery Stent GI Surgical History: Reports: Appendectomy Other Male Surgeries/Procedures: kidney transplant Musculoskeletal Surgical History: Reports: Other (See Below) Other Musculoskeletal Surgeries/Procedures:: Below Knee Amputation L leg Social & Family History - Family History Family Medical History: No Pertinent Family History Endocrine/Metabolic: Reports: Diabetes, Type I - Tobacco Use Tobacco Use Status *Q: Never Tobacco User - Caffeine Use Caffeine Use: Reports: Coffee - Recreational Drug Use Recreational Drug Use: No ED ROS GENERAL - Review of Systems Review Of Systems: Comprehensive ROS is negative, except as noted in HPI. ED EXAM, GENERAL - Physical Exam Exam: See Below Free Text/Narrative:: My physical exam is in the HPI Course - Vital Signs Text/Narrative:: 343 patient was informed of his sugar level. He manages his own diabetes with a sliding scale. Plan discharge on antibiotics. Last Recorded V/S: Last Vital Signs Temp 36.6 C 09/23/20 01:21 Pulse 76 09/23/20 01:35 Resp 18 09/23/20 01:35 BP 141/58 H 09/23/20 01:35 Pulse Ox 96 09/23/20 01:35 - Orders/Labs/Meds Orders: Active Orders 24 hr Category Date Time Status Sodium Chloride 0.9% [Saline Flush] Med 09/23/20 01:49 Active 10 ml FLUSH ASDIRECTED PRN Sodium Chloride 0.9% [Saline Flush] Med 09/23/20 01:49 Active 2.5 ml FLUSH ASDIRECTED PRN Saline Lock Insert [OM.PC] Stat Oth 09/23/20 01:49 Ordered Medication Orders Sodium Chloride (Sodium Chloride 0.9% 10 Ml Syringe) 10 ml FLUSH ASDIRECTED PRN PRN Reason: Keep Vein Open Last Admin: 09/23/20 02:32 Dose: 10 ml Documented by: MÓNICA Sodium Chloride (Sodium Chloride 0.9% 2.5 Ml Syringe) 2.5 ml FLUSH ASDIRECTED PRN PRN Reason: Keep Vein Open Last Admin: 09/23/20 02:32 Dose: 2.5 ml Documented by: MÓNICA Labs: Laboratory Tests 09/23/20 09/23/20 09/23/20 Range/Units 02:10 02:10 03:05 WBC 5.76 (4.0-11.0) K/uL RBC 4.21 L (4.50-5.90) M/uL Hgb 13.2 (13.0-17.0) g/dL Hct 39.6 (38.0-50.0) % MCV 94.1 (80.0-98.0) fL MCH 31.4 (27.0-32.0) pg MCHC 33.3 (31.0-37.0) g/dL RDW Std Deviation 45.5 (28.0-62.0) fl RDW Coeff of Sukhdeep 13 (11.0-15.0) % Plt Count 171 (150-400) K/uL MPV 10.20 (7.40-12.00) fL Neut % (Auto) 60.4 (48.0-80.0) % Lymph % (Auto) 23.8 (16.0-40.0) % [place] % (Auto) 13.4 (0.0-15.0) % Eos % (Auto) 1.9 (0.0-7.0) % Baso % (Auto) 0.5 (0.0-1.5) % Neut # (Auto) 3.5 (1.4-5.7) K/uL Lymph # (Auto) 1.4 (0.6-2.4) K/uL [place] # (Auto) 0.8 (0.0-0.8) K/uL Eos # (Auto) 0.1 (0.0-0.7) K/uL Baso # (Auto) 0.0 (0.0-0.1) K/uL Nucleated RBC % 0.0 /100WBC Nucleated RBCs # 0 K/uL Sodium 125 L (136-148) mmol/L Potassium 4.2 (3.5-5.1) mmol/L Chloride 97 L (98-107) mmol/L Carbon Dioxide 25.0 (21.0-32.0) mmol/L BUN 30 H (7.0-18.0) mg/dL Creatinine 1.0 (0.8-1.3) mg/dL Est Cr Clr Drug Dosing 94.84 mL/min Estimated GFR (MDRD) > 60.0 ml/min Glucose 349 H (74-106) mg/dL Calcium 8.1 L (8.5-10.1) mg/dL Total Bilirubin 0.3 (0.2-1.0) mg/dL AST 24 (15-37) IU/L ALT 30 (14-63) IU/L Alkaline Phosphatase 94 (46-116) U/L Total Protein 7.1 (6.4-8.2) g/dL Albumin 3.4 (3.4-5.0) g/dL Globulin 3.7 (2.6-4.0) g/dL Albumin/Globulin Ratio 0.9 (0.9-1.6) Urine Color YELLOW Urine Appearance CLEAR Urine pH 5.5 (5.0-8.0) Ur Specific [place] 1.010 (1.001-1.035) Urine Protein NEGATIVE (NEGATIVE) mg/dL Urine Glucose (UA) 500 H (NEGATIVE) mg/dL Urine Ketones NEGATIVE (NEGATIVE) mg/dL Urine Occult Blood NEGATIVE (NEGATIVE) Urine Nitrite NEGATIVE (NEGATIVE) Urine Bilirubin NEGATIVE (NEGATIVE) Urine Urobilinogen 0.2 (<2.0) EU/dL Ur Leukocyte Esterase NEGATIVE (NEGATIVE) Meds: Medications Generic Name Dose Route Start Last Admin Trade Name Freq PRN Reason Stop Dose Admin Sodium Chloride 10 ml 09/23/20 01:49 09/23/20 02:32 Sodium Chloride 0.9% 10 Ml Syringe FLUSH 10 ml ASDIRECTED PRN Administration Keep Vein Open Sodium Chloride 2.5 ml 09/23/20 01:49 09/23/20 02:32 Sodium Chloride 0.9% 2.5 Ml Syringe FLUSH 2.5 ml ASDIRECTED PRN Administration Keep Vein Open Discontinued Medications Generic Name Dose Route Start Last Admin Trade Name Freq PRN Reason Stop Dose Admin Ceftriaxone Sodium/Dextrose 1 50 mls @ 100 mls/hr 09/23/20 01:49 09/23/20 02:31 gm/ Premix IV 09/23/20 02:18 100 mls/hr ONETIME ONE Administration Departure - Departure Time of Disposition: 03:43 Disposition: Home, Self-Care 01 Clinical Impression: Dehydration, Sinusitis, Sinusitis, Pharyngitis - Discharge Information Prescriptions: Amoxicillin/Clavulanate K [Augmentin 875-125 MG] 1 tab PO BID #20 tablet Instructions: Sinusitis, Adult, [id number], Pharyngitis, [id number] Referrals: Marvin Valle MD [Primary Care Provider] - Forms: ED Department Discharge Additional Instructions: Control your sugar better. Antibiotic was sent to the pharmacy. What she received tonight the last 24 hours. [facility] - Primary Care [address] [place] [address] [place] [address] The following information is given to patients seen in the emergency department who are being discharged to home. This information is to outline your options for follow-up care. We provide all patients seen in our emergency department with a follow-up referral. The need for follow-up, as well as the timing and circumstances, are variable depending upon the specifics of your emergency department visit. If you don't have a primary care physician on staff, we will provide you with a referral. We always advise you to contact your personal physician following an emergency department visit to inform them of the circumstance of the visit and for follow-up with them and/or the need for any referrals to a consulting specialist. The emergency department will also refer you to a specialist when appropriate. This referral assures that you have the opportunity for follow-up care with a specialist. All of these measure are taken in an effort to provide you with optimal care, which includes your follow-up. Under all circumstances we always encourage you to contact your private physician who remains a resource for coordinating your care. When calling for follow-up care, please make the office aware that this follow-up is from your recent emergency room visit. If for any reason you are refused follow-up, please contact the [facility] Emergency Department at and asked to speak to the emergency department charge nurse. Sepsis Event Note (ED) - Evaluation Sepsis Screening Result: No Definite Risk - Focused Exam Vital Signs: Vital Signs Temp Pulse Resp BP Pulse Ox 09/23/20 01:35 76 18 141/58 H 96 09/23/20 01:21 36.6 C 76 18 141/56 H 97 - My Orders Last 24 Hours: My Active Orders 09/23/20 01:49 Sodium Chloride 0.9% [Saline Flush] 10 ml FLUSH ASDIRECTED PRN Sodium Chloride 0.9% [Saline Flush] 2.5 ml FLUSH ASDIRECTED PRN Saline Lock Insert [OM.PC] Stat - Assessment/Plan Last 24 Hours: My Active Orders 09/23/20 01:49 Sodium Chloride 0.9% [Saline Flush] 10 ml FLUSH ASDIRECTED PRN Sodium Chloride 0.9% [Saline Flush] 2.5 ml FLUSH ASDIRECTED PRN Saline Lock Insert [OM.PC] Stat
[2020-09-23 02:51] LABS: BLOOD UREA NITROGEN,BUN 30 mg/dL (7.0-18.0); CHLORIDE,CL 97 mmol/L (98-107); GLUCOSE RANDOM 349 mg/dL (74-106); POTASSIUM,K 4.2 mmol/L (3.5-5.1); SODIUM,NA 125 mmol/L (136-148)
[2020-09-23 03:52] VITALS: BP 138/69
== END 2020-09-23 03:53 | disposition home or self-care (01) ==
LOC: MW.ED 01:08
DX: E86.0 Dehydration (principal); J32.9 Chronic sinusitis, unspecified; J02.9 Acute pharyngitis, unspecified; I10 Essential (primary) hypertension; I25.2 Old myocardial infarction; E10.9 Type 1 diabetes mellitus without complications; Z79.02 Long term (current) use of antithrombotics/antiplatelets; Z79.899 Other long term (current) drug therapy; Z88.1 Allergy status to other antibiotic agents; Z88.5 Allergy status to narcotic agent
CPT/HCPCS: 36415; 80053; 81003; 85025; 96365; 99284; J0696; 99283

== ENCOUNTER 2021-01-27 22:06 | Emergency (ER) | payer MEDICARE ==
[2021-01-27 23:09] VITALS: BP 113/76; PULSE 88
[2021-01-27] MEDS ORDERED: Naproxen 500 MG Tab PO ONE (23:20)
--- NOTE | 2021-01-27 23:23 | EDM.PDOC ---
ED HPI GENERAL MEDICAL PROBLEM - General Chief Complaint: Upper Extremity Injury/Pain Stated Complaint: HAND INJURY Time Seen by Provider: 01/27/21 23:21 Source of Information: Reports: Patient History Limitations: Reports: No Limitations - History of Present Illness INITIAL COMMENTS - FREE TEXT/NARRATIVE: 55-year-old male with history of carpal tunnel syndrome presents with atraumatic right wrist and forearm pain that started 2 days ago. Pain is sharp, localized to the mid forearm and radiates to the wrist, exacerbated with range of motion, alleviated with immobilization, constant. ROS: A 10-point review of systems, other than pertinent positives and negatives as stated per HPI, is otherwise negative Past medical history: No additional pertinent history Past Surgical history: No additional pertinent history Social history: No additional pertinent history Family history: No additional pertinent history PHYSICAL EXAM General: AOx4, GCS = 15, No distress HEENT: dry mucous membrane Neck: supple, no meningismus, no Kernig or Brudzinski Cardiac: S1S2 RRR Respiratory: CTAB, no crackles or rales, no wheezing Abdomen: Soft, nontender, no rebound or guarding, nondistended, no pulsatile mass. Back: nontender Musculoskeletal: NVI distally, atrophy to bilateral forearms. Positive Tinel's sign to the right wrist. Compartments are soft, negative Kanavel sign. Neuro: No focal deficits, CN 2 - 12 WNL. Right Hand Pain Score (Numeric/FACES): 10 - Related Data Allergies Allergy/AdvReac Type Severity Reaction Status Date / Time azithromycin Allergy disoriented Verified 01/27/21 22:54 morphine Allergy Swelling Verified 01/27/21 22:54 Home Meds: Home Meds Metoprolol Succinate [Toprol XL] 25 mg PO DAILY 11/05/13 [History] Tacrolimus [Astagraf Xl] 1 mg PO BID 11/05/13 [History] atorvaSTATin [Lipitor] 10 mg PO DAILY 11/05/13 [History] predniSONE 10 mg PO DAILY 11/05/13 [History] Insulin Aspart [NovoLOG] 1 injection SUBCUT TIDAC 08/02/14 [History] Multivitamin [Multiple Vitamins] 1 tab PO DAILY 08/02/14 [History] mycophenolate mofetiL [Cellcept] 500 mg PO DAILY 08/02/14 [History] Insulin Degludec [Tresiba] 30 units SQ DAILY 09/07/18 [History] PARoxetine [Paxil] 10 mg PO DAILY 09/07/18 [History] Clopidogrel [Plavix] 75 mg PO DAILY 11/04/18 [History] Acetaminophen/HYDROcodone [[place] 325-5 MG] 1 tab PO Q6H 5 Days #14 tablet 02/16/20 [Rx] Azithromycin 250 mg PO DAILY 5 Days #6 tablet 02/16/20 [Rx] Ondansetron [Zofran ODT] 1 tab PO Q6H PRN #10 tab.dis 02/22/20 [Rx] traMADol HCl [Tramadol HCl] 50 mg PO Q6H PRN #20 tablet 02/22/20 [Rx] Acetaminophen/oxyCODONE [Percocet 325-5 MG] 1 each PO Q6H PRN #6 tab 07/14/20 [Rx] Amoxicillin/Clavulanate K [Augmentin 875-125 MG] 1 tab PO BID #20 tablet 09/23/20 [Rx] traMADol [Ultram] 50 mg PO Q6H PRN #12 tablet 01/28/21 [Rx] Past Medical History HEENT History: Reports: Sinusitis Cardiovascular History: Reports: Hypertension, [place], Stents Respiratory History: Reports: None Gastrointestinal History: Reports: None Other Gastrointestinal History: indigestion, abdominal pain Other Genitourinary History: kidney transplant 5 YEARS AGO Musculoskeletal History: Reports: None Neurological History: Reports: None Psychiatric History: Reports: Anxiety Endocrine/Metabolic History: Reports: Diabetes, Type I Hematologic History: Reports: None 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 Other Immunologic History: Kidney Transplant Oncologic (Cancer) History: Reports: Other (See Below) Other Oncologic History: skin Dermatologic History: Reports: None - Infectious Disease History Infectious Disease History: Reports: Chicken Pox - Past Surgical History HEENT Surgical History: Reports: Eye Surgery Cardiovascular Surgical History: Reports: Coronary Artery Stent GI Surgical History: Reports: Appendectomy Other Male Surgeries/Procedures: kidney transplant Musculoskeletal Surgical History: Reports: Other (See Below) Other Musculoskeletal Surgeries/Procedures:: Below Knee Amputation L leg Social & Family History - Family History Family Medical History: No Pertinent Family History Endocrine/Metabolic: Reports: Diabetes, Type I - Tobacco Use Tobacco Use Status *Q: Current Every Day Tobacco User Years of Tobacco use: 15 Packs/Tins Daily: 1 - Caffeine Use Caffeine Use: Reports: Soda Review of Systems - Review of Systems Review Of Systems: See Below (see dictation) ED EXAM, GENERAL - Physical Exam Exam: See Below (see dictation) ED TRAUMA EXTREMITY PROCEDURES - Splinting Right Upper Extremity Splint Site: Right wrist Pre-Procedure NV Status: Normal Post-Procedure NV Status: Normal Splint Material: Velcro Applied & Form Fitted By: Nurse Provider Post-Splint Application NV Check: NV Status Normal, Good Position Progress/Comments: Splint: Velcro splint Indication: Right wrist CTS How will this benefit patient: immobilization Duration: 7 days Course - Vital Signs Last Recorded V/S: Last Vital Signs Temp 98.7 F 01/27/21 22:55 Pulse 88 01/27/21 22:55 Resp 18 01/27/21 22:55 BP 113/76 01/27/21 22:55 Pulse Ox 97 01/27/21 22:55 - Orders/Labs/Meds Orders: Active Orders 24 hr Category Date Time Status DME for Discharge [COMM] Stat Oth 01/27/21 23:19 Ordered Meds: Medications Discontinued Medications Generic Name Dose Route Start Last Admin Trade Name Freq PRN Reason Stop Dose Admin Naproxen 500 mg 01/27/21 23:20 Naproxen 500 Mg Tab PO 01/28/21 00:01 ONETIME ONE Departure - Departure Time of Disposition: 00:53 Disposition: Home, Self-Care 01 Condition: Good Clinical Impression: Carpal tunnel syndrome of right wrist - Discharge Information *PRESCRIPTION DRUG MONITORING PROGRAM REVIEWED*: Not Applicable *COPY OF PRESCRIPTION DRUG MONITORING REPORT IN PATIENT CHANI: Not Applicable Prescriptions: traMADol [Ultram] 50 mg PO Q6H PRN #12 tablet PRN Reason: Pain Instructions: Preventing Carpal Tunnel Syndrome, Cast or Splint Care, Adult, [id number], Carpal Tunnel Syndrome, [id number] Referrals: Marvin Valle MD [Primary Care Provider] - 3 Days Forms: ED Department Discharge Additional Instructions: The need for follow-up, as well as the timing and circumstances, are variable depending upon the specifics of your emergency department visit. If you don't have a primary care physician on staff, we will provide you with a referral. We always advise you to contact your personal physician following an emergency department visit to inform them of the circumstance of the visit and for follow-up with them and/or the need for any referrals to a consulting specialist. The emergency department will also refer you to a specialist when appropriate. This referral assures that you have the opportunity for follow-up care with a specialist. All of these measure are taken in an effort to provide you with optimal care, which includes your follow-up. Under all circumstances we always encourage you to contact your private physician who remains a resource for coordinating your care. When calling for follow-up care, please make the office aware that this follow-up is from your recent emergency room visit. If for any reason you are refused follow-up, please contact the [facility] Emergency Department at and asked to speak to the emergency department charge nurse. If you do not have a primary care doctor, please follow up with the clinics below within 3-5 days. [facility] at [facility] (Physical Therapy) Professional Building [address] [place] [address], [address] [place] [address] . Sepsis Event Note (ED) - Focused Exam Vital Signs: Vital Signs Temp Pulse Resp BP Pulse Ox 01/27/21 22:55 98.7 F 88 18 113/76 97 - My Orders Last 24 Hours: My Active Orders 01/27/21 23:19 DME for Discharge [COMM] Stat - Assessment/Plan Last 24 Hours: My Active Orders 01/27/21 23:19 DME for Discharge [COMM] Stat
--- NOTE | 2021-01-28 00:40 | CR ---
Indication: Non-traumatic pain. Technique: Three views of the right wrist. Comparison: None Findings: Degenerative changes are identified bilaterally. Extensive vascular calcifications are identified. No bony erosions are identified. No fracture or subluxation is identified. Impression: Extensive vascular calcifications. No fracture. Dictated by Ana Mtz MD @ 01/28/2021 12:40:09 AM (Electronically Signed)
--- NOTE | 2021-01-28 00:43 | CR ---
Indication: Non-traumatic pain. Technique: Two views of the right forearm. Comparison: None Findings: Extensive vascular calcifications are identified. Degenerative changes are identified at the level of the wrist and the elbow. No fracture or subluxation is identified. No bony erosions are identified. Impression: Extensive vascular calcifications Dictated by Ana Mtz MD @ 01/28/2021 12:40:45 AM (Electronically Signed)
== END 2021-01-28 01:32 | disposition home or self-care (01) ==
LOC: MW.ED 22:06
DX: G56.01 Carpal tunnel syndrome, right upper limb (principal); I10 Essential (primary) hypertension; I25.2 Old myocardial infarction; E10.9 Type 1 diabetes mellitus without complications; Z95.5 Presence of coronary angioplasty implant and graft; Z88.1 Allergy status to other antibiotic agents; Z88.5 Allergy status to narcotic agent; Z79.4 Long term (current) use of insulin; Z79.899 Other long term (current) drug therapy; Z72.0 Tobacco use
CPT/HCPCS: 29125; 73090; 73110; 99283; A9270

== ENCOUNTER 2021-07-04 17:08 | Emergency (ER) | payer MEDICARE ==
[2021-07-04 18:16] LABS: BLOOD UREA NITROGEN,BUN 31 mg/dL (7.0-18.0); CARBON DIOXIDE,CO2 25.9 mmol/L (21.0-32.0); CHLORIDE,CL 94 mmol/L (98-107); ESTIMATED GFR > 60.0 ml/min; GLUCOSE RANDOM 433 mg/dL (74-106); POTASSIUM,K 5.2 mmol/L (3.5-5.1); SODIUM,NA 132 mmol/L (136-148)
[2021-07-04 19:03] VITALS: BP 113/78; PULSE 73
== END 2021-07-04 19:03 | disposition home or self-care (01) ==
LOC: MW.ED 17:08
DX: E10.65 Type 1 diabetes mellitus with hyperglycemia (principal); J01.90 Acute sinusitis, unspecified; I10 Essential (primary) hypertension; I25.2 Old myocardial infarction; Z86.16 Personal history of COVID-19; Z79.899 Other long term (current) drug therapy; Z79.4 Long term (current) use of insulin
CPT/HCPCS: 36415; 80053; 82375; 85025; 93005; 93010; 99283; 99283-25

== ENCOUNTER 2021-09-20 11:21 | Emergency (ER) | payer MEDICARE ==
[2021-09-20 12:14] LABS: BLOOD UREA NITROGEN,BUN 21 mg/dL (7.0-18.0); CARBON DIOXIDE,CO2 24.8 mmol/L (21.0-32.0); CHLORIDE,CL 98 mmol/L (98-107); GLUCOSE RANDOM 201 mg/dL (74-106); POTASSIUM,K 4.2 mmol/L (3.5-5.1); SODIUM,NA 131 mmol/L (136-148)
[2021-09-20 12:16] LABS: CORONAVIRUS COVID-19 NAA NEGATIVE (NEGATIVE); INFLUENZA A NAA NEGATIVE (NEGATIVE); INFLUENZA B NAA NEGATIVE (NEGATIVE)
[2021-09-20] MEDS ORDERED: Sodium Chloride 0.9% 1,000 ML IV ONE (12:22)
[2021-09-20 13:32] VITALS: BP 165/38; PULSE 77
== END 2021-09-20 13:32 | disposition home or self-care (01) ==
LOC: MW.ED 11:21
DX: R42 Dizziness and giddiness (principal); I10 Essential (primary) hypertension; I25.2 Old myocardial infarction; E10.9 Type 1 diabetes mellitus without complications; Z86.16 Personal history of COVID-19; Z20.822 Contact with and (suspected) exposure to COVID-19; Z90.49 Acquired absence of other specified parts of digestive tract; Z79.899 Other long term (current) drug therapy; Z79.4 Long term (current) use of insulin; Z88.1 Allergy status to other antibiotic agents; Z88.6 Allergy status to analgesic agent
CPT/HCPCS: 0240U; 36415; 71045; 80053; 83690; 83735; 84484; 85025; 93005; 99285; 93010; 99284

== ENCOUNTER 2021-10-27 10:29 | Emergency (ER) | payer MEDICARE ==
[2021-10-27] MEDS ORDERED: Sodium Chloride 0.9% 10 ML Syringe FLUSH PRN (11:16)
[2021-10-27] MEDS ORDERED: Sodium Chloride 0.9% 2.5 ML Syringe FLUSH PRN (11:16)
[2021-10-27] MEDS ORDERED: Sodium Chloride 0.9% 1,000 ML IV ONE (11:16)
[2021-10-27 12:11] LABS: CARBON DIOXIDE,CO2 25.7 mmol/L (21.0-32.0); POTASSIUM,K 4.1 mmol/L (3.5-5.1)
[2021-10-27] MEDS ORDERED: HYDROmorphone 1 MG/ML Syringe IVPUSH ONE (12:40)
[2021-10-27] MEDS ORDERED: Cephalexin 500 MG Cap PO ONE (13:33)
[2021-10-27 14:04] VITALS: BP 104/29; PULSE 84
== END 2021-10-27 15:00 | disposition home or self-care (01) ==
LOC: MW.ED 10:29
DX: N39.0 Urinary tract infection, site not specified (principal); E10.65 Type 1 diabetes mellitus with hyperglycemia; L97.319 Non-pressure chronic ulcer of right ankle with unspecified severity; M79.601 Pain in right arm; I10 Essential (primary) hypertension; I25.2 Old myocardial infarction; Z95.5 Presence of coronary angioplasty implant and graft; Z88.1 Allergy status to other antibiotic agents; Z88.5 Allergy status to narcotic agent; Z79.899 Other long term (current) drug therapy; Z20.822 Contact with and (suspected) exposure to COVID-19
CPT/HCPCS: 36415; 71045; 73090; 80053; 81001; 82009; 84484; 85025; 85379; 85610; 86140; 87040; 87077; 87154; 87186; 93005; 96361; 96374; 99284; A9270; J1170; J3490; J7030; U0002

== ENCOUNTER 2021-10-28 09:49 | Emergency (ER) | payer MEDICARE ==
[2021-10-28] MEDS ORDERED: Metoclopramide 10 MG/2 ML SDV IVPUSH ONE (09:56)
[2021-10-28] MEDS ORDERED: HYDROmorphone 1 MG/ML Syringe IVPUSH ONE (09:56)
[2021-10-28] MEDS ORDERED: Piperacillin/Tazobactam 4.5 GM in Sodium Chloride 0.9% 100 ML IV ONE (10:00)
[2021-10-28 11:37] LABS: CARBON DIOXIDE,CO2 25.7 mmol/L (21.0-32.0); POTASSIUM,K 4.2 mmol/L (3.5-5.1)
[2021-10-28 12:52] VITALS: BP 105/38; PULSE 80
== END 2021-10-28 12:52 | disposition home or self-care (01) ==
LOC: MW.ED 09:49
DX: N39.0 Urinary tract infection, site not specified (principal); I10 Essential (primary) hypertension; E10.8 Type 1 diabetes mellitus with unspecified complications; Z79.899 Other long term (current) drug therapy; Z88.5 Allergy status to narcotic agent; Z88.8 Allergy status to other drugs, medicaments and biological substances
CPT/HCPCS: 36415; 80048; 85025; 96365; 96375; 99283; J1170; J2543; J2765

== ENCOUNTER 2021-12-08 20:20 | Inpatient (IN) | payer MEDICARE ==
[2021-12-08] MEDS ORDERED: Sodium Chloride 0.9% 1,000 ML IV ONE (20:25)
[2021-12-08] MEDS ORDERED: Cefepime 2 GM in Sodium Chloride 0.9% 50 ML IV ONE (20:52)
[2021-12-08] MEDS ORDERED: VANCOmycin 1.5 GM/300 ML 1.5 GM in Premix Bag 1 BAG IV ONE (21:15)
[2021-12-08 21:25] LABS: CARBON DIOXIDE,CO2 27.5 mmol/L (21.0-32.0); POTASSIUM,K 4.2 mmol/L (3.5-5.1)
[2021-12-08 22:29] LABS: CORONAVIRUS COVID-19 NAA NEGATIVE (NEGATIVE); INFLUENZA A NAA NEGATIVE (NEGATIVE); INFLUENZA B NAA NEGATIVE (NEGATIVE)
[2021-12-08] MEDS ORDERED: Albuterol/Ipratropium 3.0-0.5 MG/3 ML Neb Soln NEB PRN (23:58)
[2021-12-08] MEDS ORDERED: Acetaminophen 325 MG Tab PO PRN (23:58)
[2021-12-09] MEDS ORDERED: Glucagon,Human Recombinant 1 MG Vial IM PRN (00:09)
[2021-12-09] MEDS: Lactated Ringers 1,000 ML IV SCH ×3 (00:09→23:22)
[2021-12-09] MEDS ORDERED: 50% Dextrose in Water 50 ML Syringe IVPUSH PRN (00:09)
[2021-12-09] MEDS ORDERED: traMADol 50 MG Tab PO PRN (00:10)
[2021-12-09] MEDS: Tacrolimus 0.5 MG Cap PO SCH ×3 (02:10→23:22)
[2021-12-09] MEDS: Cefepime 2 GM in Sodium Chloride 0.9% 50 ML IV SCH ×3 (04:04→19:54)
[2021-12-09 07:26] LABS: CARBON DIOXIDE,CO2 24.4 mmol/L (21.0-32.0); POTASSIUM,K 3.7 mmol/L (3.5-5.1)
[2021-12-09] MEDS ORDERED: Magnesium Sulfate/Water 2 GM in Premix Bag 1 BAG IV ONE (07:50)
[2021-12-09] MEDS: Insulin Aspart 100 Units/ML 3 ML Pen SUBCUT SCH ×3 (08:38→17:08)
[2021-12-09] MEDS ORDERED: Lactated Ringers 500 ML IV ONE (09:19)
[2021-12-09] MEDS: Metoprolol Succinate 50 MG Tab.ER PO SCH (09:26)
[2021-12-09] MEDS: atorvaSTATin 20 MG Tab PO SCH (09:27)
[2021-12-09] MEDS: Clopidogrel 75 MG Tab PO SCH (09:27)
[2021-12-09] MEDS ORDERED: Insulin Detemir 100 Units/ML 3 ML Pen SUBCUT ONE (13:06)
[2021-12-09] MEDS ORDERED: Magnesium Sulfate/Water 50 ML ONE (15:20)
[2021-12-09] MEDS: Ondansetron 4 MG/2 ML SDV IVPUSH PRN (17:22)
[2021-12-10] MEDS: Melatonin 3 MG Tab PO PRN ×2 (00:13→21:40)
[2021-12-10] MEDS: Cefepime 2 GM in Sodium Chloride 0.9% 50 ML IV SCH ×3 (03:33→20:08)
[2021-12-10] MEDS: Midodrine 5 MG Tab PO SCH ×2 (06:32→18:55)
[2021-12-10 06:44] LABS: POTASSIUM,K 4.2 mmol/L (3.5-5.1)
[2021-12-10] MEDS: Insulin Aspart 100 Units/ML 3 ML Pen SUBCUT SCH ×3 (08:12→18:54)
[2021-12-10] MEDS ORDERED: Insulin Detemir 100 Units/ML 3 ML Pen SUBCUT SCH (09:00)
[2021-12-10] MEDS ORDERED: Midodrine 5 MG Tab PO SCH (09:00)
[2021-12-10] MEDS: Metoprolol Succinate 50 MG Tab.ER PO SCH (09:18)
[2021-12-10] MEDS: atorvaSTATin 20 MG Tab PO SCH (09:19)
[2021-12-10] MEDS: Clopidogrel 75 MG Tab PO SCH (09:19)
[2021-12-10] MEDS: Tacrolimus 0.5 MG Cap PO SCH ×2 (13:39→23:54)
[2021-12-10] MEDS ORDERED: Melatonin 3 MG Tab PO PRN (22:01)
[2021-12-11] MEDS: Ondansetron 4 MG/2 ML SDV IVPUSH PRN (00:09)
[2021-12-11] MEDS: Cefepime 2 GM in Sodium Chloride 0.9% 50 ML IV SCH ×2 (05:03→12:24)
[2021-12-11] MEDS: Midodrine 5 MG Tab PO SCH (06:39)
[2021-12-11 07:11] LABS: CARBON DIOXIDE,CO2 26.6 mmol/L (21.0-32.0); POTASSIUM,K 4.2 mmol/L (3.5-5.1)
[2021-12-11] MEDS: Clopidogrel 75 MG Tab PO SCH (08:30)
[2021-12-11] MEDS: Insulin Aspart 100 Units/ML 3 ML Pen SUBCUT SCH ×2 (08:30→12:15)
[2021-12-11] MEDS: atorvaSTATin 20 MG Tab PO SCH (08:30)
[2021-12-11] MEDS: Metoprolol Succinate 50 MG Tab.ER PO SCH (08:31)
[2021-12-11 08:34] VITALS: BP 117/26; PULSE 78
[2021-12-11] MEDS ORDERED: Insulin Detemir 100 Units/ML 3 ML Pen SUBCUT SCH (09:00)
[2021-12-11] MEDS: Tacrolimus 0.5 MG Cap PO SCH (12:23)
== END 2021-12-11 13:35 | disposition home or self-care (01) | DRG 690 ==
LOC: MW.ED 20:20 → MW.MS 23:39 → OBSVTOIN 12-10 10:49 → MW.MS 12-10 15:15
PROVIDERS: ADMIT Student in an Organized Health Care Education/Training Program; ATTEND Student in an Organized Health Care Education/Training Program
DX: N39.0 Urinary tract infection, site not specified (principal); Z94.0 Kidney transplant status; I10 Essential (primary) hypertension; F41.9 Anxiety disorder, unspecified; E10.9 Type 1 diabetes mellitus without complications; Z20.822 Contact with and (suspected) exposure to COVID-19; Z79.899 Other long term (current) drug therapy; Z88.1 Allergy status to other antibiotic agents; Z88.5 Allergy status to narcotic agent; Z88.8 Allergy status to other drugs, medicaments and biological substances; Z79.02 Long term (current) use of antithrombotics/antiplatelets; Z79.4 Long term (current) use of insulin; I25.2 Old myocardial infarction; Z95.5 Presence of coronary angioplasty implant and graft; Z86.16 Personal history of COVID-19; Z28.310 Unvaccinated for COVID-19
CPT/HCPCS: 0240U; 36415; 71045; 80048; 80053; 80202; 81001; 82009; 82947; 83605; 83735; 84100; 85025; 85610; 87040; 87086; 87088; 87186; 96361; 96365; 96367; 99285; 96366; 96375; 96376; 99219; 99232; 99239; 99284; A9270-GY; G0378; J0692; J1815-GY; J2405; J3370; J3475; J7030; J7050; J7120; J7507

== ENCOUNTER 2021-12-28 18:02 | Emergency (ER) | payer MEDICARE | END 2021-12-28 23:00 | disposition left against medical advice (07) | LOC: MW.ED 18:02 | DX: Z53.21 Procedure and treatment not carried out due to patient leaving prior to being seen by health care provider (principal) ==

== ENCOUNTER 2022-07-12 18:28 | Emergency (ER) | payer BC, MEDICARE ==
[2022-07-13 00:11] VITALS: BP 142/92; PULSE 92
== END 2022-07-12 20:30 | disposition home or self-care (01) ==
LOC: MW.ED 18:28
DX: M25.512 Pain in left shoulder (principal); I10 Essential (primary) hypertension; I25.2 Old myocardial infarction; E10.9 Type 1 diabetes mellitus without complications; Z94.0 Kidney transplant status; Z86.16 Personal history of COVID-19; Z88.1 Allergy status to other antibiotic agents; Z88.5 Allergy status to narcotic agent; Z79.4 Long term (current) use of insulin; Z79.899 Other long term (current) drug therapy; W00.0XXA Fall on same level due to ice and snow, initial encounter
CPT/HCPCS: 73030-26-LT; 73030-LT; 99283

== ENCOUNTER 2022-09-14 18:16 | Emergency (ER) | payer MEDICARE | END 2022-09-14 19:38 | disposition left against medical advice (07) | LOC: MW.ED 18:16 | DX: Z53.21 Procedure and treatment not carried out due to patient leaving prior to being seen by health care provider (principal) ==

== ENCOUNTER 2022-12-02 16:35 | Emergency (ER) | payer MEDICARE ==
[2022-12-02] MEDS ORDERED: Acetaminophen 325 MG Tab PO ONE (17:48)
[2022-12-02] MEDS ORDERED: fentaNYL 50 MCG/ML SDV IVPUSH ONE (17:48)
[2022-12-02 18:32] LABS: BASOPHILS PERCENT AUTO 0.2 % (0.0-1.5); EOSINOPHILS PERCENT AUTO 0.5 % (0.0-7.0); HEMATOCRIT 36.9 % (38.0-50.0); HEMOGLOBIN 12.1 g/dL (13.0-17.0); LYMPHOCYTES PERCENT AUTO 17.2 % (16.0-40.0); MEAN CORPUSCULAR HEMOGLOBIN 30.9 pg (27.0-32.0); MEAN CORPUSCULAR HGB CONC 32.8 g/dL (31.0-37.0); MEAN CORPUSCULAR VOLUME 94.1 fL (80.0-98.0); MONOCYTES ABSOLUTE AUTO 0.5 K/uL (0.0-0.8); MONOCYTES PERCENT AUTO 8.8 % (0.0-15.0); NEUTROPHILS ABSOLUTE AUTO 4.3 K/uL (1.4-5.7); NEUTROPHILS PERCENT AUTO 73.3 % (48.0-80.0); NRBC ABSOLUTE 0 K/uL; PLATELET COUNT,PLT 148 K/uL (150-400); RED BLOOD CELL COUNT 3.92 M/uL (4.50-5.90); WHITE BLOOD CELL COUNT,WBC 5.92 K/uL (4.0-11.0)
[2022-12-02 18:41] LABS: INR 1.03 (0.86-1.11)
[2022-12-02 18:52] LABS: ALBUMIN 3.3 g/dL (3.4-5.0); BILIRUBIN TOTAL 0.3 mg/dL (0.2-1.0); CALCIUM 8.6 mg/dL (8.5-10.1); CARBON DIOXIDE,CO2 26.2 mmol/L (21.0-32.0); CREATININE 1.2 mg/dL (0.8-1.3); EST CRCL DRUG DOSING (CG) 70.37 mL/min; POTASSIUM,K 4.6 mmol/L (3.5-5.1); PROTEIN TOTAL,TP 7.2 g/dL (6.4-8.2)
[2022-12-02 18:55] LABS: A/G RATIO 0.9 (0.9-1.6)
[2022-12-02] MEDS ORDERED: HYDROmorphone 1 MG/ML Syringe IVPUSH ONE (22:32)
[2022-12-02] MEDS ORDERED: Ondansetron 4 MG/2 ML SDV IVPUSH ONE (22:38)
[2022-12-02] MEDS ORDERED: HYDROmorphone 2 MG/ML Syringe IVPUSH ONE (23:33)
[2022-12-03 00:09] VITALS: BP 134/35; PULSE 83
== END 2022-12-03 00:35 ==
LOC: MW.ED 16:35
DX: S72.142A Displaced intertrochanteric fracture of left femur, initial encounter for closed fracture (principal); I10 Essential (primary) hypertension; I25.2 Old myocardial infarction; E10.9 Type 1 diabetes mellitus without complications; Z86.16 Personal history of COVID-19; Z95.5 Presence of coronary angioplasty implant and graft; Z79.4 Long term (current) use of insulin; Z79.899 Other long term (current) drug therapy; Z88.5 Allergy status to narcotic agent; Z88.1 Allergy status to other antibiotic agents; Z88.8 Allergy status to other drugs, medicaments and biological substances; W01.0XXA Fall on same level from slipping, tripping and stumbling without subsequent striking against object, initial encounter; Y93.01 Activity, walking, marching and hiking
CPT/HCPCS: 36415; 70450; 71250; 72125; 73502; 73552; 74176; 80053; 85025; 85610; 86850; 86900; 86901; 96374; 96375; 96376; 99285; A9270; J1170; J2405; J3010; U0002

== ENCOUNTER 2024-01-04 21:40 | Emergency (ER) | payer MEDICARE ==
[2024-01-04] MEDS: Sodium Chloride 0.9% 10 ML Syringe FLUSH PRN (21:59)
[2024-01-04] MEDS: Sodium Chloride 0.9% 1,000 ML IV ONE (21:59)
[2024-01-04] MEDS: Sodium Chloride 0.9% 2.5 ML Syringe FLUSH PRN (21:59)
[2024-01-04 22:11] LABS: BASOPHILS ABSOLUTE AUTO 0.01 K/uL (0.00-0.20); BASOPHILS PERCENT AUTO 0.2 % (0.0-1.0); EOSINOPHILS ABSOLUTE AUTO 0.08 K/uL (0.00-0.45); EOSINOPHILS PERCENT AUTO 1.9 % (0.0-6.0); HEMATOCRIT 29.7 % (42.0-52.0); HEMOGLOBIN 9.9 g/dL (14.0-18.0); IMMATURE GRAN ABSOLUTE AUTO 0.01 K/uL (0.00-0.05); IMMATURE GRAN PERCENT AUTO 0.2 % (0.0-0.4); LYMPHOCYTES ABSOLUTE AUTO 0.99 K/uL (1.00-4.80); LYMPHOCYTES PERCENT AUTO 23.6 % (24.0-44.0); MEAN CORPUSCULAR HGB CONC 33.3 g/dL (32.0-36.0); MEAN CORPUSCULAR VOLUME 93.1 fL (83.0-99.0); MEAN PLATELET VOLUME 10.3 fL (9.4-12.4); MONOCYTES ABSOLUTE AUTO 0.49 K/uL (0.00-0.80); MONOCYTES PERCENT AUTO 11.7 % (0.0-8.0); NEUTROPHILS ABSOLUTE AUTO 2.61 K/uL (1.80-7.70); NEUTROPHILS PERCENT AUTO 62.4 % (41.0-71.0); PLATELET COUNT,PLT 159 K/uL (150-400); RED BLOOD CELL COUNT 3.19 M/uL (4.52-5.90); WHITE BLOOD CELL COUNT,WBC 4.19 K/uL (3.9-11.3)
[2024-01-04] MEDS: cefTRIAXone 2 GM in Sodium Chloride 0.9% 50 ML IV ONE (22:13)
[2024-01-04 22:39] LABS: A/G RATIO 0.8 (0.9-1.6); ALBUMIN 2.8 g/dL (3.4-5.0); BILIRUBIN TOTAL 0.3 mg/dL (0.2-1.0); CALCIUM 8.7 mg/dL (8.5-10.1); CARBON DIOXIDE,CO2 26.6 mmol/L (21.0-32.0); CREATININE 1.3 mg/dL (0.8-1.3); EST CRCL DRUG DOSING (CG) 69.64 mL/min; MAGNESIUM 2.1 mg/dL (1.8-2.4); PHOSPHORUS 3.6 mg/dL (2.6-4.7); POTASSIUM,K 4.6 mmol/L (3.5-5.1); PROTEIN TOTAL,TP 6.3 g/dL (6.4-8.2)
[2024-01-04 22:59] LABS: LACTIC ACID 1.4 mmol/L (0.4-2.0)
[2024-01-04 23:03] LABS: CORONAVIRUS COVID-19 NAA NEGATIVE (NEGATIVE); INFLUENZA A NAA NEGATIVE (NEGATIVE); INFLUENZA B NAA NEGATIVE (NEGATIVE); RESPIRATORY SYNCYTIAL VIR NAA NEGATIVE (NEGATIVE)
[2024-01-04] MEDS: Aspirin 81 MG Tab.Chew PO ONE (23:47)
[2024-01-05 00:13] VITALS: PULSE 74
[2024-01-05 02:37] VITALS: BP 135/29
== END 2024-01-05 02:30 ==
LOC: MW.ED 21:40
DX: J18.9 Pneumonia, unspecified organism (principal); I21.4 Non-ST elevation (NSTEMI) myocardial infarction; I10 Essential (primary) hypertension; E10.9 Type 1 diabetes mellitus without complications; Z95.5 Presence of coronary angioplasty implant and graft; Z79.899 Other long term (current) drug therapy; Z79.4 Long term (current) use of insulin; Z88.1 Allergy status to other antibiotic agents; Z88.5 Allergy status to narcotic agent
CPT/HCPCS: 0241U; 36415; 71045; 80053; 83605; 83735; 84100; 84484; 85025; 87040; 93005; 96361; 96365; 99285; A9270; J0696; J3490; J7030; 93010

== ENCOUNTER 2024-11-12 15:50 | Emergency (ER) | payer MEDICARE ==
[2024-11-12 16:07] LABS: BASOPHILS ABSOLUTE AUTO 0.03 K/uL (0.00-0.20); BASOPHILS PERCENT AUTO 0.6 % (0.0-1.0); EOSINOPHILS ABSOLUTE AUTO 0.06 K/uL (0.00-0.45); EOSINOPHILS PERCENT AUTO 1.1 % (0.0-6.0); IMMATURE GRAN ABSOLUTE AUTO 0.01 K/uL (0.00-0.05); IMMATURE GRAN PERCENT AUTO 0.2 % (0.0-0.4); LYMPHOCYTES ABSOLUTE AUTO 1.20 K/uL (1.00-4.80); LYMPHOCYTES PERCENT AUTO 22.3 % (24.0-44.0); MEAN PLATELET VOLUME 10.4 fL (9.4-12.4); MONOCYTES ABSOLUTE AUTO 0.48 K/uL (0.00-0.80); MONOCYTES PERCENT AUTO 8.9 % (0.0-8.0); NEUTROPHILS ABSOLUTE AUTO 3.61 K/uL (1.80-7.70); NEUTROPHILS PERCENT AUTO 66.9 % (41.0-71.0); NRBC ABSOLUTE 0.00 K/uL (0.00-0.02); NRBC PERCENT 0.0 /100WBC (0.0-0.2); PLATELET COUNT,PLT 133 K/uL (150-400); RED BLOOD CELL COUNT 3.51 M/uL (4.52-5.90); WHITE BLOOD CELL COUNT,WBC 5.39 K/uL (3.9-11.3)
[2024-11-12 16:21] LABS: INR 1.08 (0.86-1.11)
[2024-11-12 16:39] LABS: A/G RATIO 1.1 (0.9-1.6); ALANINE AMINOTRANSFERASE,ALT 62.0 IU/L (14-63); ASPARTATE AMNIOTRANSFERASE,AST 42.0 IU/L (15-37); BILIRUBIN TOTAL 0.7 mg/dL (0.2-1.0); BLOOD UREA NITROGEN,BUN 38.0 mg/dL (7.0-18.0); CARBON DIOXIDE,CO2 25.0 mmol/L (21.0-32.0); CHLORIDE,CL 103.0 mmol/L (98-107); CREATININE 1.5 mg/dL (0.8-1.3); EST CRCL DRUG DOSING (CG) 60.36 mL/min; ESTIMATED GFR 54.0 mL/min (>60); GLUCOSE RANDOM 211.0 mg/dL (74-106); POTASSIUM,K 4.8 mmol/L (3.5-5.1); PRO B-TYPE NATRIUR PEPT,BNPPRO 11507.0 pg/mL (0-125); PROTEIN TOTAL,TP 6.8 g/dL (6.4-8.2); SODIUM,NA 139.0 mmol/L (136-148)
[2024-11-12] MEDS: Furosemide 40 MG/4 ML VIAL IVPUSH ONE ×2 (17:34)
[2024-11-12] MEDS: Iopamidol 755 MG/ML 500 ML Multipack Bottle IVPUSH STA (17:57)
[2024-11-12] MEDS: Heparin Sodium 5,000 Units/ML Vial IVPUSH ONE (18:11)
[2024-11-12] MEDS: Heparin Sodium/0.45% NaCl 25,000 UNITS/250 ML BAG IV SCH (18:11)
[2024-11-12 18:36] LABS: APPEARANCE,URINE CLEAR; GLUCOSE,URINE NEGATIVE (NEGATIVE); OCCULT BLOOD,URINE TRACE-LYSED (NEGATIVE)
[2024-11-12 18:45] LABS: AMPHETAMINES SCREEN, URINE NEGATIVE (CUTOFF=500); BUPRENORPHINE SCREEN,URINE NEGATIVE (CUTOFF=10); METHADONE SCREEN, URINE NEGATIVE (CUTOFF=200); METHAMPHETAMINES SCREEN, URINE NEGATIVE (CUTOFF=500); OXYCODONE SCREEN,URINE NEGATIVE (CUT0FF=100); PCP SCREEN,URINE NEGATIVE (CUTOFF=25); THC SCREEN,URINE 20 NG/ML NEGATIVE (CUTOFF=50)
[2024-11-12 18:47] LABS: EPITHELIAL CELLS,URINE NOT SEEN (NONE-FEW)
[2024-11-12 18:48] VITALS: BP 132/44; PULSE 79
== END 2024-11-12 19:39 ==
LOC: MW.ED 15:50
DX: I21.4 Non-ST elevation (NSTEMI) myocardial infarction (principal); I95.9 Hypotension, unspecified; J90 Pleural effusion, not elsewhere classified; E10.65 Type 1 diabetes mellitus with hyperglycemia; R94.4 Abnormal results of kidney function studies; I11.0 Hypertensive heart disease with heart failure; I50.9 Heart failure, unspecified; R94.31 Abnormal electrocardiogram [ECG] [EKG]; I25.2 Old myocardial infarction; Z95.5 Presence of coronary angioplasty implant and graft; Z88.1 Allergy status to other antibiotic agents; Z88.5 Allergy status to narcotic agent; Z88.8 Allergy status to other drugs, medicaments and biological substances; Z79.4 Long term (current) use of insulin; Z79.899 Other long term (current) drug therapy
CPT/HCPCS: 36415; 71045; 71275; 80053; 80305; 80307; 81001; 82947; 83036; 83605; 83690; 83735; 83880; 84484; 85025; 85610; 85730; 87040; 93005; 96365; 96375; 99285; A9270; J1644; J1938; Q9967; 93010

== ENCOUNTER 2025-01-01 05:06 | Emergency (ER) | payer MEDICARE ==
[2025-01-01] MEDS ORDERED: Sodium Chloride 0.9% 10 ML Syringe FLUSH PRN (06:01)
[2025-01-01] MEDS ORDERED: Sodium Chloride 0.9% 2.5 ML Syringe FLUSH PRN (06:01)
[2025-01-01 06:03] LABS: BASOPHILS ABSOLUTE AUTO 0.01 K/uL (0.00-0.20); BASOPHILS PERCENT AUTO 0.3 % (0.0-1.0); EOSINOPHILS ABSOLUTE AUTO 0.07 K/uL (0.00-0.45); EOSINOPHILS PERCENT AUTO 2.1 % (0.0-6.0); IMMATURE GRAN ABSOLUTE AUTO 0.01 K/uL (0.00-0.05); IMMATURE GRAN PERCENT AUTO 0.3 % (0.0-0.4); LYMPHOCYTES ABSOLUTE AUTO 1.13 K/uL (1.00-4.80); LYMPHOCYTES PERCENT AUTO 33.6 % (24.0-44.0); MEAN PLATELET VOLUME 10.3 fL (9.4-12.4); MONOCYTES ABSOLUTE AUTO 0.42 K/uL (0.00-0.80); MONOCYTES PERCENT AUTO 12.5 % (0.0-8.0); NEUTROPHILS ABSOLUTE AUTO 1.72 K/uL (1.80-7.70); NEUTROPHILS PERCENT AUTO 51.2 % (41.0-71.0); NRBC ABSOLUTE 0.00 K/uL (0.00-0.02); NRBC PERCENT 0.0 /100WBC (0.0-0.2); PLATELET COUNT,PLT 115 K/uL (150-400); RED BLOOD CELL COUNT 3.13 M/uL (4.52-5.90); WHITE BLOOD CELL COUNT,WBC 3.36 K/uL (3.9-11.3)
[2025-01-01 06:13] LABS: INR 1.1 (0.86-1.11); PTT,PARTIAL THROMBOPLSTIN TIME 28.4 SEC (23.9-30.7)
[2025-01-01 06:21] LABS: A/G RATIO 1.1 (0.9-1.6); ALANINE AMINOTRANSFERASE,ALT 32.0 IU/L (14-63); ASPARTATE AMNIOTRANSFERASE,AST 24.0 IU/L (15-37); BILIRUBIN TOTAL 0.5 mg/dL (0.2-1.0); BLOOD UREA NITROGEN,BUN 54.0 mg/dL (7.0-18.0); CARBON DIOXIDE,CO2 24.6 mmol/L (21.0-32.0); CHLORIDE,CL 104.0 mmol/L (98-107); CREATININE 1.3 mg/dL (0.8-1.3); EST CRCL DRUG DOSING (CG) 68.81 mL/min; GLUCOSE RANDOM 112.0 mg/dL (74-106); POTASSIUM,K 5.4 mmol/L (3.5-5.1); PRO B-TYPE NATRIUR PEPT,BNPPRO 11592.0 pg/mL (0-125); PROTEIN TOTAL,TP 6.8 g/dL (6.4-8.2); SODIUM,NA 137.0 mmol/L (136-148)
[2025-01-01 06:24] LABS: ESTIMATED GFR 64.0 mL/min (>60)
[2025-01-01] MEDS: Furosemide 40 MG/4 ML VIAL IVPUSH ONE (06:40)
[2025-01-01 09:52] VITALS: BP 111/36; PULSE 81
== END 2025-01-01 09:48 | disposition home or self-care (01) ==
LOC: MW.ED 05:06
DX: I11.0 Hypertensive heart disease with heart failure (principal); I50.9 Heart failure, unspecified; I25.2 Old myocardial infarction; E10.9 Type 1 diabetes mellitus without complications; Z79.899 Other long term (current) drug therapy; Z88.1 Allergy status to other antibiotic agents; Z88.8 Allergy status to other drugs, medicaments and biological substances; Z90.49 Acquired absence of other specified parts of digestive tract
CPT/HCPCS: 36415; 71046; 80053; 83735; 83880; 84484; 85025; 85610; 85730; 93005; 96374; 99285; J1938; 93010; 99284

== ENCOUNTER 2025-01-11 23:07 | Emergency (ER) | payer MEDICARE ==
[2025-01-11 23:25] LABS: BASOPHILS ABSOLUTE AUTO 0.02 K/uL (0.00-0.20); BASOPHILS PERCENT AUTO 0.5 % (0.0-1.0); EOSINOPHILS ABSOLUTE AUTO 0.04 K/uL (0.00-0.45); EOSINOPHILS PERCENT AUTO 1.0 % (0.0-6.0); IMMATURE GRAN ABSOLUTE AUTO 0.00 K/uL (0.00-0.05); IMMATURE GRAN PERCENT AUTO 0.0 % (0.0-0.4); LYMPHOCYTES ABSOLUTE AUTO 0.89 K/uL (1.00-4.80); LYMPHOCYTES PERCENT AUTO 21.7 % (24.0-44.0); MEAN PLATELET VOLUME 10.7 fL (9.4-12.4); MONOCYTES ABSOLUTE AUTO 0.39 K/uL (0.00-0.80); MONOCYTES PERCENT AUTO 9.5 % (0.0-8.0); NEUTROPHILS ABSOLUTE AUTO 2.77 K/uL (1.80-7.70); NEUTROPHILS PERCENT AUTO 67.3 % (41.0-71.0); NRBC ABSOLUTE 0.00 K/uL (0.00-0.02); NRBC PERCENT 0.0 /100WBC (0.0-0.2); PLATELET COUNT,PLT 123 K/uL (150-400); RED BLOOD CELL COUNT 2.99 M/uL (4.52-5.90); WHITE BLOOD CELL COUNT,WBC 4.11 K/uL (3.9-11.3)
[2025-01-12 00:01] LABS: A/G RATIO 1.1 (0.9-1.6); ALANINE AMINOTRANSFERASE,ALT 46.0 IU/L (14-63); ASPARTATE AMNIOTRANSFERASE,AST 46.0 IU/L (15-37); BILIRUBIN TOTAL 0.5 mg/dL (0.2-1.0); BLOOD UREA NITROGEN,BUN 62.0 mg/dL (7.0-18.0); CARBON DIOXIDE,CO2 25.7 mmol/L (21.0-32.0); CHLORIDE,CL 100.0 mmol/L (98-107); CREATININE 1.7 mg/dL (0.8-1.3); EST CRCL DRUG DOSING (CG) 51.88 mL/min; GLUCOSE RANDOM 369.0 mg/dL (74-106); POTASSIUM,K 4.1 mmol/L (3.5-5.1); PRO B-TYPE NATRIUR PEPT,BNPPRO 11068.0 pg/mL (0-125); PROTEIN TOTAL,TP 6.4 g/dL (6.4-8.2); SODIUM,NA 137.0 mmol/L (136-148)
[2025-01-12 00:02] LABS: ESTIMATED GFR 46.0 mL/min (>60)
[2025-01-12 02:20] LABS: APPEARANCE,URINE CLEAR; GLUCOSE,URINE NEGATIVE (NEGATIVE); OCCULT BLOOD,URINE NEGATIVE (NEGATIVE)
[2025-01-12 02:28] LABS: EPITHELIAL CELLS,URINE RARE (NONE-FEW)
[2025-01-12 03:37] VITALS: BP 102/43; PULSE 72
== END 2025-01-12 03:36 | disposition home or self-care (01) ==
LOC: MW.ED 23:07
DX: E10.65 Type 1 diabetes mellitus with hyperglycemia (principal); E86.0 Dehydration; R53.1 Weakness; I11.0 Hypertensive heart disease with heart failure; I50.9 Heart failure, unspecified; I25.2 Old myocardial infarction; E78.00 Pure hypercholesterolemia, unspecified; Z90.49 Acquired absence of other specified parts of digestive tract; Z95.5 Presence of coronary angioplasty implant and graft; Z88.1 Allergy status to other antibiotic agents; Z88.5 Allergy status to narcotic agent; Z88.8 Allergy status to other drugs, medicaments and biological substances; Z79.4 Long term (current) use of insulin; Z79.899 Other long term (current) drug therapy
CPT/HCPCS: 36415; 71045; 80053; 81001; 82947; 83690; 83735; 83880; 84484; 85025; 93005; 96360; 99285; J7030; 93010; 99283